=== PATIENT | female | born 1980 | race Caucasian/White ===

== ENCOUNTER 2016-11-06 10:21 | Inpatient (IN) ==
--- NOTE | 2016-11-06 10:27 | Emergency Department Note ---
Disposition Clinical Impression: Suicidal ideation, Schizoaffective disorder, bipolar type, Hallucinations Disposition: Admitted As Inpatient Condition: Fair Referrals: NO,PCP [Primary Care Provider] - Forms: ED Satisfaction Letter Time of Disposition: 12:43 Psych HPI - General Chief Complaint: ED Psychiatric Symptoms Stated Complaint: SI Time Seen by Provider: 11/06/16 10:25 Source: patient Mode of arrival: ambulatory Limitations: no limitations Nursing Notes Reviewed: Yes Vital Signs Reviewed: Yes - History of Present Illness Pt complaint: suicidal ideation If medical clearance, reason: psychiatric condition (bipolar) Onset (ago): day(s) Duration: intermittent History of similar episodes: Yes Associated Psychiatric Symptoms: depression, suicidal ideation, racing thoughts , auditory hallucinations Associated symptoms: Reports: nausea. Denies: confusion, headache - Related Data Home Medications Medication Instructions Recorded Confirmed Buspirone HCl [Buspar] 15 mg PO TID 12/02/15 11/05/16 Duloxetine HCl [Cymbalta] 60 mg PO BID 12/02/15 11/05/16 Gabapentin [Neurontin] 400 mg PO TID 12/02/15 11/05/16 Indapamide [Lozol] 2.5 mg PO QAM 12/02/15 11/05/16 Lipase/Protease/Amylase [Ursula Miller 2 cap PO TIDWM 12/02/15 11/05/16 24,000 Units Capsule] Norgestimate-Ethinyl Estradiol 1 tab PO DAILY 12/02/15 11/05/16 [Sprintec 28 Day Tablet] Omeprazole [PriLOSEC] 40 mg PO BID 12/02/15 11/05/16 SUMAtriptan Succinate [Imitrex] 100 mg PO AD PRN MDD 2 tablets 12/02/15 11/05/16 Tizanidine HCl [Zanaflex] 4 mg PO Q8H PRN 12/02/15 11/05/16 Trazodone HCl 300 mg PO HS 12/02/15 11/05/16 diazePAM [Valium] 10 mg PO BID 12/02/15 11/05/16 Cholecalciferol (Vitamin D3) 10,000 unit PO QWEEK 01/30/16 11/05/16 [Vitamin D3] Dicyclomine [Bentyl] 10 mg PO QID 01/30/16 11/05/16 Lipase/Protease/Amylase [Creon Dr 1 cap PO BID MDD With Snack 01/30/16 11/05/16 24,000 Units Capsule] Quetiapine Fumarate [Seroquel] 200 mg PO HS 01/30/16 11/05/16 Ranitidine HCl [Zantac] 300 mg PO DAILY 01/30/16 11/05/16 lamoTRIgine [Lamictal] 200 mg PO BID 01/30/16 11/05/16 Quetiapine Fumarate [Seroquel] 150 mg PO TID 05/08/16 11/05/16 ARIPiprazole [Abilify] 10 mg PO DAILY 11/05/16 11/05/16 Previous Rx's Medication Instructions Recorded Amitriptyline [Elavil] 25 mg PO HS #30 tablet 02/03/16 Cyclobenzaprine [Flexeril] 10 mg PO TID PRN #14 tablet 06/21/16 Naproxen [Naprosyn] 500 mg PO BID PRN #20 tablet 06/21/16 Ondansetron HCl [Zofran] 4 mg PO Q6HR PRN #20 tablet 06/21/16 Allergies Allergy/AdvReac Type Severity Reaction Status Date / Time metoclopramide [From Reglan] Allergy Seizure Verified 09/17/16 00:35 prochlorperazine Allergy Difficulty Verified 09/17/16 00:35 [From Compazine] Breathing haloperidol AdvReac See Verified 09/17/16 00:35 Comments All systems ED: reviewed and negative except as stated. Review of Systems: As Per HPI Constitutional: Denies: fever, chills Cardiovascular: Denies: chest pain Respiratory: Denies: cough Gastrointestinal: Reports: abdominal pain (Chronic pancreatitis unachanged for weeks), nausea. Denies: vomiting Neurological: Denies: headache Psychiatric: Reports: anxiety, depression, suicidal thoughts, auditory hallucinations Endocrine: Denies: fatigue Past Medical History - Past Medical History Attestation: Yes The following information was validated with the patient. 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: endometriosis - Social History Smoking Status: Current every day smoker Smokeless Tobacco Status: No Alcohol use: Reports: none Drug use: Reports: marijuana Physical Exam Constitutional: atient has tangential speech, vss, rocking back and forth in the room Eyes: PERRLA, sclera anicteric ENT & Mouth: NCAT, normal external ears bilaterally, MMM Neck: normal inspection, neck is supple Resp: CTA bilaterally, no resp distress CV: RRR, no m/g/r GI: distractible tenderness, no guarding or rigidity mild epigstric ttp Back: normal inspection, no tenderness to palpation Neuro: A&O3, CNII-XII grossly intact, [place] Psych: +SI and hallucinations visual denies HI MSK: no gross deformities, normal ROM UE and LE Skin: on limited exam, skin intact with no rashes or lesions Course Course Narrative: Reevaluated after discharge yesterday chronic abdominal pain and hx of negative CTs stable vitals, workup for psych performed yesterday reviewed + amphetamines , +opiates, + bzds and THC , psych 1 a called for eval - Reevaluation(s) Reevaluation #1: Psych cleared, 1 A to accept pink slip signed for admission to Dr Roberts for SI and hallucinations Time: 12:43 Vital Signs Temperature 98.4 F 11/06/16 10:23 Pulse Rate 83 11/06/16 10:23 Respiratory Rate 16 11/06/16 10:23 Blood Pressure 127/36 11/06/16 10:23 O2 Sat by Pulse Oximetry 98 11/06/16 10:23 Temperature 98.4 F 11/06/16 10:30 Pulse Rate 83 11/06/16 10:30 Respiratory Rate 16 11/06/16 10:30 Blood Pressure 127/36 11/06/16 10:30 O2 Sat by Pulse Oximetry 98 11/06/16 10:30 Oxygen Delivery Oxygen Delivery Room Air Psychiatric Medical Clearance - Medical Clearance Checklist Does the patient have a NEW psychiatric condition?: No Any abnormalities indicating possible medical illness?: No Any history of medical issues?: Yes Medical History: No Social History Section defined Any abnormal vital signs prior to transfer?: No Current Vitals: Last Vital Signs Temp 98.4 F 11/06/16 10:30 Pulse 83 11/06/16 10:30 Resp 16 11/06/16 10:30 BP 127/36 11/06/16 10:30 Pulse Ox 98 11/06/16 10:30 Is the patient intoxicated or cognitively impaired?: No Any abnormalities on the physical exam?: Yes Any abnormal labs?: Yes Does the patient require durable medical equiptment?: No Is the patient ambulatory?: Yes Is the patient a fall risk?: No Has the patient been medically cleared?: Yes Any acute medical condition require Tx prior to transfer?: No Statement of Medical Clearance: I have evaluated the patient, reviewed diagnostic information, and certify that the patient's medical condition is sufficiently stable that transfer to the psychiatric unit does not pose a significant risk of deterioration.
[2016-11-06] MEDS ORDERED: *HR* LORazepam 1 MG TABLET PO ONE ×2 (10:47→12:19)
[2016-11-06] MEDS ORDERED: Dicyclomine 20 MG/2 ML AMPUL IM ONE (10:55)
--- NOTE | 2016-11-06 10:56 | Emergency Department Note ---
START Narrative - START START: I examined this patient and my medical decision-making was reviewed with the GROUP UNDERWRITER/PA/Advanced Practice Nurse/Resident Physician. I agree with the documented findings, disposition and treatment plan as described except to the extent set forth below. ED attending note: Patient seen with emergency medicine resident Dr. HIRSCH. Please see a copy of his note for details of the H&P, evaluation, management and disposition of this patient. We independently had [id number] contact with the patient Briefly: A 36-year-old female history polysubstance use smell health disorder and pancreatitis was seen just yesterday evaluated by mental health and discharge home. Patient had issues refusing to go home. Had a be escorted out by security I am told. Patient brought in by ambulance today now with suicidal ideations and the same complaints otherwise exam is otherwise benign. We discussed the case with mental health. They will evaluate the patient in the emergency department. Disposition pending.
[2016-11-06] MEDS ORDERED: Haloperidol Lactate 5 MG/ML VIAL IM PRN (15:03)
[2016-11-06] MEDS ORDERED: Mag Hydrox/Al Hydrox/Simeth 30 ML UDC PO PRN (15:03)
[2016-11-06] MEDS ORDERED: Acetaminophen 325 MG TABLET PO PRN (15:03)
[2016-11-06] MEDS ORDERED: *HR* LORazepam 2 MG/ML VIAL IM PRN (15:03)
[2016-11-06] MEDS ORDERED: traZODone 50 MG TABLET PO PRN (15:03)
[2016-11-06] MEDS ORDERED: *HR* LORazepam 1 MG TABLET PO PRN (15:03)
[2016-11-06] MEDS ORDERED: MOM Conc 10 ML UD.LIQ PO PRN (15:03)
[2016-11-06] MEDS ORDERED: Ondansetron ODT 4 MG TAB.RAPDIS PO PRN (15:08)
[2016-11-06] MEDS ORDERED: traMADol 50 MG TABLET PO PRN (15:08)
[2016-11-06] MEDS ORDERED: SUMAtriptan succinate 50 MG TABLET PO PRN (15:08)
[2016-11-06] MEDS: Gabapentin 400 MG CAPSULE PO SCH ×2 (15:49→20:42)
[2016-11-06] MEDS: Nicotine 7 MG PATCH.TD24 TD SCH (15:51)
[2016-11-06] MEDS: tiZANidine 4 MG TABLET PO PRN (15:56)
[2016-11-06] MEDS: diazePAM 10 MG TABLET PO SCH ×2 (17:14→20:43)
[2016-11-06] MEDS: traZODone 50 MG TABLET PO SCH (20:42)
[2016-11-06] MEDS: lamoTRIgine 100 MG TABLET PO SCH (20:43)
[2016-11-06] MEDS: Famotidine 20 MG TABLET PO SCH (20:43)
[2016-11-07] MEDS: tiZANidine 4 MG TABLET PO PRN ×2 (07:32→16:40)
[2016-11-07] MEDS: lamoTRIgine 100 MG TABLET PO SCH ×2 (08:48→21:37)
[2016-11-07] MEDS: Nicotine 7 MG PATCH.TD24 TD SCH (08:48)
[2016-11-07] MEDS: Gabapentin 400 MG CAPSULE PO SCH (08:48)
[2016-11-07] MEDS: diazePAM 10 MG TABLET PO SCH ×2 (08:49→21:39)
[2016-11-07] MEDS: (Norgestimate-Ethinyl Estradiol [Sprintec 28 Day Tabl) PO SCH (08:49)
--- NOTE | 2016-11-07 13:27 | Psychiatry History & Physical ---
Date of Encounter: 11/07/16 Time of Encounter: 13:07 History of Present Illness Patient Stated Chief Complaint: depression and suicidal ideations Medicare Admission Attestation: For traditional Medicare patients the provided hospital inpatient services are reasonable and necessary and in the case of services not specified as inpatient -only under 42 CFR 419.22 (n), that they are appropriately provided as inpatient services in accordance 42 CFR 412.3. For Critical Access Hospital the patient may reasonably be expected to be discharged or transferred to a hospital within 96 hours after admission to the Critical Access Hospital. Admitted From: Emergency Dept Plans for Post Hospital Care: Home History of Present Illness: Ms. Calle is a 36 year old female who was referred for hospitalization from emergency department where she presented with depression and suicidal ideation with thoughts of wanting to end her life. She reported she has been struggling from depression for a long time. She is noted to have diagnoses of schizoaffective disorder. Patient reported that most recently she has been struggling with a lot of challenges in life which is contributing to her relapse of depression.. Her stressors included recent loss of her grandfather whom she was closed and attached to. She reported that she is having ongoing issues and conflicts with her father which is also contributing to her depression. Patient also has chronic pancreatitis and pain related issues which further exacerbates her depression. Patient was endorsing low mood and anhedonia hopeless helpless feelings crying and weeping spells low energy levels and recurrent suicidal thoughts and ideations. She is currently denying any psychotic or manic symptoms. Since patient was actively suicidal and was not able to contract for safety and was posing a threat to herself it was decided to hospitalize her at the [facility] health services for safety concerns. Patient's urine drug screen is positive for benzodiazepines opioids marijuana and amphetamine. Patient is adamantly denying any use of amphetamine however she did endorse of taking a Percocet prior to coming to the emergency department and smoking marijuana regularly. Benzodiazepines are prescribed by her outpatient psychiatrist Past Med Surg Social Fam HX - Past Medical History Medical history: arthritis, GERD, kidney stones, migraine, seizures, other - Past Psychiatric History Psychiatric history: Reports: previous psychiatric hospitalization Past psychiatric history details: Multiple psych hospitalizations Last at [facility] in Feb 2016 Receiving outpatient Rx from Dr Bill Rodriguez Family psychiatric history: No Family History of Suicide: None - Past Surgical History Surgical History: cholecystectomy, other - Social History Smoking Status: Current every day smoker Smokeless Tobacco Status: No Alcohol use: none Drug use: marijuana Occupational status: disabled Current living situation: Home, With Family Activity Level: Independent ambulation Recent Out of Country Travel Within the Last 8 Weeks: No Exposure or Possible Exposure to Illness During Travel: No Additional social history: Signle No children On SSDI Resides with a friend No legal issues - Family History Mother Adopted: [place]: Alyssa Calle Family Member Ethnicity: Non- Living Status: Age at : 52 Cause of : Aspiration of emesis Hx Family Cardiac Disorders: No Hx Family Respiratory Disorders: No Hx Family Cancer: Yes (Breast) Hx Family GI Disorders: No Hx Family Genitourinary Disorders: No Hx Family Endocrine Disorder: No Hx Family Musculoskeletal Disorders: Yes (2 displaced cervical vertebrae) Hx Family Neuromuscular Disorders: No Hx Family Neurologic Disorders: No Hx Family HEENT Disorders: No Hx Family Autoimmune Disorders: No Hx Family Reproductive Disorders: Yes (Endometriosis) Hx Family Psychosocial Disorders: Yes (Bipolar disorder) Hx Family Medical Disorders: No Medications & Allergies Buspirone HCl [Buspar] 30 mg PO TID 12/02/15 [History] Duloxetine HCl [Cymbalta] 60 mg PO BID 12/02/15 [History] Gabapentin [Neurontin] 400 mg PO TID 12/02/15 [History] Lipase/Protease/Amylase [Creon Dr 24,000 Units Capsule] 2 cap PO TIDWM 12/02/15 [History] Norgestimate-Ethinyl Estradiol [Sprintec 28 Day Tablet] 1 tab PO DAILY 12/02/15 [History] SUMAtriptan Succinate [Imitrex] 100 mg PO AD PRN MDD 2 tablets 12/02/15 [History ] Tizanidine HCl [Zanaflex] 4 mg PO Q8H PRN 12/02/15 [History] Trazodone HCl 300 mg PO HS 12/02/15 [History] diazePAM [Valium] 10 mg PO BID 12/02/15 [History] Dicyclomine [Bentyl] 10 mg PO QID 01/30/16 [History] Quetiapine Fumarate [Seroquel] 200 mg PO HS 01/30/16 [History] lamoTRIgine [Lamictal] 200 mg PO BID 01/30/16 [History] Quetiapine Fumarate [Seroquel] 100 mg PO QAM 05/08/16 [History] Ondansetron HCl [Zofran] 4 mg PO Q6HR PRN #20 tablet 06/21/16 [Rx] Amitriptyline [Elavil] 10 mg PO HS 11/06/16 [History] Quetiapine Fumarate [SEROquel] 100 mg PO BID 11/06/16 [History] Ranitidine HCl [Heartburn Relief] 150 mg PO HS 11/06/16 [History] Tramadol HCl [Ultram] 50 mg PO TID PRN 11/06/16 [History] Allergies metoclopramide [From Reglan] Allergy (Verified 09/17/16 00:35) Seizure prochlorperazine [From Compazine] Allergy (Verified 09/17/16 00:35) Difficulty Breathing haloperidol Adverse Reaction (Verified 09/17/16 00:35) See Comments Review of Systems Psychiatric: Reports: depression, suicidal ideation, hopelessness Mental Status Exam Patient orientation: Yes Person, Yes Time, Yes Place Level of alertness: Alert Patient appearance: Unkempt, Disheveled Behavior: anxious, tearful Psychomotor activity: Slowed Eye contact: Maintains Eye Contact Mood description: Anxious, Irritable Affect description: tearful, dysphoric, anxious Speech pattern: Normal rate Speech volume: Soft/Quiet Thought process: Linear, Goal Oriented Thought content: Yes Suicidal ideation Perceptual disturbances: No Auditory hallucinations, No Visual hallucinations Attention span: Capable of Focused Attention Memory description: Grossly Intact Patient reliability: Reliable Historian Intelligence estimate: Average Judgment: Limited Insight: Minimal Exam - HEENT Head exam IM: Present: atraumatic Eye exam IM: Present: normal appearance ENT exam IM: Present: normal exam - Neurological Neurological exam IM: Present: alert, CN II-XII intact, normal gait, oriented X3. Absent: motor sensory deficit, reflexes normal, no focal deficits - Respiratory Respiratory exam IM: Absent: respiratory distress - GI/Abdominal GI/Abdominal exam IM: Present: soft. Absent: tenderness - Extremities Extremities exam IM: Present: full ROM - Skin Skin exam IM: Present: normal color Results - Vital Signs Vital signs: Temp Pulse Resp BP Pulse Ox 96.7 F L 67 16 92/64 98 11/07/16 08:30 11/07/16 08:30 11/07/16 08:30 11/07/16 08:30 11/06/16 10:30 Assessment and Plan (1) Schizoaffective disorder, bipolar type Current visit: Yes Status: Acute Plan: Admit inpatient for safety and stabilization, Close observation, Suicide Precautions per unit protocol, Encourage participation in unit milieu, Group Therapy, Monitor sleep, Monitor appetite Additional Plan: Will increase Neurontin and will continue with her current regimen of meds Risks, benefits, side effects, alternatives discussed w/pt: Yes Patient agreeable to treatment: Yes Plans for Post Hospital Care: Home Estimated Length of Stay (Days): 4 (2) Substance abuse Current visit: No Status: Acute Plan: Admit inpatient for safety and stabilization, Close observation, Suicide Precautions per unit protocol, Encourage participation in unit milieu, Group Therapy, Monitor sleep, Monitor appetite Risks, benefits, side effects, alternatives discussed w/pt: Yes Plans for Post Hospital Care: Home Estimated Length of Stay (Days): 4
[2016-11-07] MEDS: Gabapentin 300 MG CAPSULE PO SCH ×2 (14:50→21:38)
[2016-11-07] MEDS: Famotidine 20 MG TABLET PO SCH (21:38)
[2016-11-07] MEDS: traZODone 50 MG TABLET PO SCH (21:39)
[2016-11-08] MEDS: (Norgestimate-Ethinyl Estradiol [Sprintec 28 Day Tabl) PO SCH (08:41)
[2016-11-08] MEDS: lamoTRIgine 100 MG TABLET PO SCH ×2 (08:45→21:36)
[2016-11-08] MEDS: Gabapentin 300 MG CAPSULE PO SCH ×3 (08:46→21:36)
[2016-11-08] MEDS: Nicotine 7 MG PATCH.TD24 TD SCH (08:46)
[2016-11-08] MEDS: diazePAM 10 MG TABLET PO SCH ×2 (08:46→21:37)
[2016-11-08] MEDS: tiZANidine 4 MG TABLET PO PRN ×2 (09:35→17:36)
--- NOTE | 2016-11-08 14:20 | Psychiatry Progress Note ---
Date of Encounter: 11/08/16 Time of Encounter: 01:55 Subjective Interval history: Patient seen and interviewed. Patient had a rough evening yesterday when she got extremely agitated and irritable and suicidal. Patient asked for a safety scissors from the staff and ran with that and threatened to stab herself she was stopped by the staff. She settled down after getting when necessary medications. Upon interview today she appeared a lot more controlled. She is still endorsing some suicidal thoughts and hopeless feelings but able to contract for safety on the unit. I encouraged the patient to attend groups and participate in activities. I also discussed some safety strategies with the patient and encouraged her to start working on a safety plan as well Review of Systems Psychiatric: Reports: depression, suicidal ideation, hopelessness Objective: Exam Patient orientation: Yes Person, Yes Time, Yes Place Level of alertness: Alert Patient appearance: Appropriate Behavior: anxious, guarded, withdrawn Psychomotor activity: Slowed Eye contact: Maintains Eye Contact Mood description: Depressed, Anxious Affect description: congruent with mood Speech pattern: Normal rate, Normal rhythm, Normal tone Speech volume: Soft/Quiet Thought process: Linear, Goal Oriented Thought content: Yes Suicidal ideation, No Homicidal ideation, No Overt delusions Perceptual disturbances: No Auditory hallucinations, No Visual hallucinations Judgment: Limited Insight: Minimal Results - Vital Signs Vital Signs: Temp Pulse Resp BP Pulse Ox 98 F 80 16 117/77 98 11/08/16 09:00 11/08/16 09:00 11/08/16 09:00 11/08/16 09:00 11/06/16 10:30 Assessment and Plan (1) Schizoaffective disorder, bipolar type Current visit: Yes Status: Acute Plan: Continue hospitalization, Close observation, Suicide Precautions per unit protocol, Encourage participation in unit milieu, Group Therapy, Monitor sleep, Monitor appetite Risks, benefits, side effects, alternatives discussed w/pt: Yes Patient agreeable to treatment: Yes (2) Substance abuse Current visit: No Status: Acute Plan: Continue hospitalization, Close observation, Suicide Precautions per unit protocol, Encourage participation in unit milieu, Group Therapy, Monitor sleep, Monitor appetite Risks, benefits, side effects, alternatives discussed w/pt: Yes Consult Discharge Plan - Plan Referrals: NO,PCP [Primary Care Provider] -
[2016-11-08] MEDS: hydrOXYzine pamoate 25 MG CAPSULE PO PRN (18:18)
[2016-11-08] MEDS: traZODone 50 MG TABLET PO SCH (21:36)
[2016-11-08] MEDS: Famotidine 20 MG TABLET PO SCH (21:36)
[2016-11-09] MEDS: (Norgestimate-Ethinyl Estradiol [Sprintec 28 Day Tabl) PO SCH (08:25)
[2016-11-09] MEDS: Nicotine 7 MG PATCH.TD24 TD SCH (08:30)
[2016-11-09] MEDS: Gabapentin 300 MG CAPSULE PO SCH ×3 (08:30→21:32)
[2016-11-09] MEDS: lamoTRIgine 100 MG TABLET PO SCH ×2 (08:30→21:33)
[2016-11-09] MEDS: diazePAM 10 MG TABLET PO SCH ×2 (08:31→21:34)
[2016-11-09] MEDS: hydrOXYzine pamoate 25 MG CAPSULE PO PRN ×2 (11:28→20:06)
[2016-11-09] MEDS: tiZANidine 4 MG TABLET PO PRN ×2 (11:28→20:05)
--- NOTE | 2016-11-09 14:44 | Psychiatry Progress Note ---
Date of Encounter: 11/09/16 Time of Encounter: 14:30 Subjective Interval history: pt seen today , case discussed with team, chart reviewed. she is still depressed, agreed to having bad thoughts like harming herself and thinks about slitting her wrist but i also think about my family, she tried to attempt hurting self yesterday. she is extremely depressed, poor eye contact and mostly in bed and sleeping mostly, has paranoia , denies auditory/visual hallucinations. denies using amphetamines , has used marijuana . has multiple stressors and loss.she has h/o being in treatment since 17 yrs old. she has h/o cutting self in past and has been on and off in treatment. she has h/o non compliance. Review of Systems Psychiatric: Reports: depression, suicidal ideation, hopelessness Objective: Exam Patient orientation: Yes Time, Yes Place Level of alertness: Alert Patient appearance: Unkempt Behavior: cooperative, anxious Psychomotor activity: Slowed Eye contact: Minimal Contact Mood description: Depressed Affect description: congruent with mood, dysphoric Speech pattern: Slowed Speech volume: Soft/Quiet Thought process: Slowed Thinking Thought content: Yes Suicidal ideation, Yes Paranoid delusion Judgment: Poor Insight: Partial Results - Vital Signs Vital Signs: Temp Pulse Resp BP Pulse Ox 98.3 F 76 16 122/92 98 11/09/16 08:51 11/09/16 08:51 11/09/16 08:51 11/09/16 08:51 11/06/16 10:30 Assessment and Plan (1) Depressed bipolar disorder Current visit: Yes Status: Acute Plan: Continue hospitalization Risks, benefits, side effects, alternatives discussed w/pt: Yes Patient agreeable to treatment: Yes Consult Discharge Plan - Plan Referrals: Jerry Fitzpatrick [facility] [Outside] - 12/18/16 12:30 pm (The above appointment is with Nereyda Rebollar for outpatient psychiatric assessment and medication management services.) [facility] Zarate [Outside] (The above appointment is with When you come to your first appointment, you will have an orientation to the agency and you will meet with a counselor. Please bring the following with you to your first visit to the clinic: 1) proof of household income (two consecutive pay stubs, social security award letter, bank statement, statement letter from [facility] , child support statement, IRS 1040 or W2 form, or a statement from the person who financially supports you stating they help provide for your basic needs), 2 ) proof of residency (drivers license, a piece of mail showing your address, a statement from person you live with verifying you live at their address), 3) your social security card, 4) photo ID, 5) your insurance card (if you have commercial insurance you must call to obtain a prior authorization number before you arrive to your first appointment) and 6) if you do not have insurance but have applied for Medicaid, please bring verification you have applied. This is the first available appointment. You may contact the office regularly to check for cancellations that may allow you to be seen sooner. )
[2016-11-09] MEDS: traZODone 50 MG TABLET PO SCH (21:31)
[2016-11-09] MEDS: Famotidine 20 MG TABLET PO SCH (21:32)
[2016-11-10] MEDS: Nicotine 7 MG PATCH.TD24 TD SCH (09:16)
[2016-11-10] MEDS: Gabapentin 300 MG CAPSULE PO SCH ×3 (09:17→20:40)
[2016-11-10] MEDS: lamoTRIgine 100 MG TABLET PO SCH ×2 (09:18→20:40)
[2016-11-10] MEDS: diazePAM 10 MG TABLET PO SCH ×2 (09:18→20:40)
[2016-11-10] MEDS: (Norgestimate-Ethinyl Estradiol [Sprintec 28 Day Tabl) PO SCH (09:21)
--- NOTE | 2016-11-10 10:55 | Psychiatry Progress Note ---
Date of Encounter: 11/10/16 Time of Encounter: 10:45 Subjective Interval history: Patient seen today , case discussed with team , as per her she feels little better , lesser thoughts of hurting self and concerned that her father and sister do not understand Bipolar, my mother was Bipolar and her father was BIpolar also. she was given prn meds yesterday for increase anxiety and restlessness , sleep is improving, appetite is better also. at present agreed needs treatment until free of suicidal thoughts . patient still hopeless and has guilt , and trouble concenterating. Review of Systems Psychiatric: Reports: depression, suicidal ideation, hopelessness Objective: Exam Level of alertness: Alert Patient appearance: Appropriate Behavior: cooperative, anxious Psychomotor activity: Normal Eye contact: Maintains Eye Contact Mood description: Depressed, Anxious Affect description: congruent with mood Speech pattern: Normal rate Speech volume: Normal Thought process: Intact Thought content: Yes Suicidal ideation Judgment: Limited Insight: Partial Results - Vital Signs Vital Signs: Temp Pulse Resp BP Pulse Ox 97.4 F L 72 14 109/83 98 11/10/16 09:00 11/10/16 09:00 11/10/16 09:00 11/10/16 09:00 11/06/16 10:30 Assessment and Plan (1) Depressed bipolar disorder Current visit: Yes Status: Acute Risks, benefits, side effects, alternatives discussed w/pt: Yes Patient agreeable to treatment: Yes Consult Discharge Plan - Plan Referrals: Chago Jean [facility] [Outside] - 11/16/16 11:00 am (The above appointment is with Mik[facility] Jaramillo [facility]/18/16 12:30 pm (The above appointment is with Nereyda Rebollar for outpatient psychiatric assessment and medication management services.)
[2016-11-10] MEDS: tiZANidine 4 MG TABLET PO PRN (13:15)
[2016-11-10] MEDS: hydrOXYzine pamoate 25 MG CAPSULE PO PRN (13:15)
[2016-11-10] MEDS: Famotidine 20 MG TABLET PO SCH (20:39)
[2016-11-10] MEDS: traZODone 50 MG TABLET PO SCH (20:42)
[2016-11-11] MEDS: tiZANidine 4 MG TABLET PO PRN ×3 (04:07→20:34)
[2016-11-11] MEDS: lamoTRIgine 100 MG TABLET PO SCH ×2 (08:42→20:37)
[2016-11-11] MEDS: Gabapentin 300 MG CAPSULE PO SCH ×3 (08:43→20:34)
[2016-11-11] MEDS: Nicotine 7 MG PATCH.TD24 TD SCH (08:43)
[2016-11-11] MEDS: diazePAM 10 MG TABLET PO SCH ×2 (08:43→20:39)
[2016-11-11] MEDS: (Norgestimate-Ethinyl Estradiol [Sprintec 28 Day Tabl) PO SCH (08:49)
--- NOTE | 2016-11-11 10:31 | Psychiatry Progress Note ---
Date of Encounter: 11/11/16 Time of Encounter: 10:27 Subjective Interval history: 36 yr old Wf seen today , case d/w team and chart reviewed. states i think i am getting ok, but i woke up anxious and woke up at 4:30 . i am not having suicidal thoughts today but i am really anxious this morning. pt was non compliant with her medications and therefore relapsed and used streed drugs. she denies psychosis , but still guilt/anxious and hopeless. Review of Systems Psychiatric: Reports: depression, anxiety, anhedonia, hopelessness Objective: Exam Patient orientation: Yes Time, Yes Place Level of alertness: Alert Patient appearance: Appropriate Behavior: nervous, anxious Psychomotor activity: Slowed Eye contact: Minimal Contact Mood description: Depressed, Anxious Affect description: congruent with mood Speech pattern: Normal rate Speech volume: Normal Thought process: Circumstantial Thought content: Yes Preoccupation, Yes Guilt Judgment: Limited Insight: Partial Results - Vital Signs Vital Signs: Temp Pulse Resp BP Pulse Ox 96.9 F L 64 16 121/72 98 11/11/16 09:00 11/11/16 09:00 11/11/16 09:00 11/11/16 09:00 11/06/16 10:30 Assessment and Plan (1) Depressed bipolar disorder Current visit: Yes Status: Acute Risks, benefits, side effects, alternatives discussed w/pt: Yes Patient agreeable to treatment: Yes (2) Cannabis abuse Current visit: Yes Status: Chronic Plan: Close observation, Encourage participation in unit milieu Risks, benefits, side effects, alternatives discussed w/pt: Yes Patient agreeable to treatment: Yes Consult Discharge Plan - Plan [facility]16/16 11:00 am (The above appointment is with Mikala Jaramillo for mental health counseling services.) [facility] [Outside] - 12/18/16 12:30 pm (The above appointment is with Nereyda Rebollar for outpatient psychiatric assessment and medication management services.)
[2016-11-11] MEDS: Famotidine 20 MG TABLET PO SCH (20:35)
[2016-11-11] MEDS: traZODone 50 MG TABLET PO SCH (20:37)
[2016-11-12] MEDS: Nicotine 7 MG PATCH.TD24 TD SCH (08:34)
[2016-11-12] MEDS: tiZANidine 4 MG TABLET PO PRN ×2 (08:35→17:32)
[2016-11-12] MEDS: lamoTRIgine 100 MG TABLET PO SCH ×2 (08:35→20:41)
[2016-11-12] MEDS: Gabapentin 300 MG CAPSULE PO SCH ×3 (08:35→20:42)
[2016-11-12] MEDS: diazePAM 10 MG TABLET PO SCH ×2 (08:35→20:41)
[2016-11-12] MEDS: (Norgestimate-Ethinyl Estradiol [Sprintec 28 Day Tabl) PO SCH (08:42)
--- NOTE | 2016-11-12 11:28 | Psychiatry Progress Note ---
Date of Encounter: 11/12/16 Time of Encounter: 11:20 Subjective Interval history: Patient seen today , case discussed with team and as per team patient is showing continued improvement. i am doing better , i talked to my Dad yesterday and it went well. she still has circumstantial thought process, anxious , i am not as depressed and i am not going to harm myself. denies side effects. her medications remain same as responding well. Review of Systems Psychiatric: Reports: depression, anxiety, difficulty concentrating, hopelessness Objective: Exam Patient orientation: Yes Time, Yes Place Level of alertness: Alert Patient appearance: Appropriate Behavior: anxious Psychomotor activity: Normal Eye contact: Maintains Eye Contact Mood description: Anxious Affect description: congruent with mood Speech pattern: Normal rate Speech volume: Normal Thought process: Circumstantial Thought content: Yes Intact Judgment: Fair Insight: Partial Results - Vital Signs Vital Signs: Temp Pulse Resp BP Pulse Ox 98.2 F 80 16 107/77 98 11/12/16 08:45 11/12/16 08:45 11/12/16 08:45 11/12/16 08:45 11/06/16 10:30 Assessment and Plan (1) Depressed bipolar disorder Current visit: Yes Status: Acute Risks, benefits, side effects, alternatives discussed w/pt: Yes Patient agreeable to treatment: Yes (2) Cannabis abuse Current visit: Yes Status: Chronic Risks, benefits, side effects, alternatives discussed w/pt: Yes Patient agreeable to treatment: Yes Consult Discharge Plan - Plan Referrals: [facility] [Outside] - 11/16/16 11:00 am (The above appointment is with Mikala Jaramillo for mental health counseling services.) [facility] [Outside] - 12/18/16 12:30 pm (The above appointment is with Nereyda Rebollar for outpatient psychiatric assessment and medication management services.)
[2016-11-12] MEDS: hydrOXYzine pamoate 25 MG CAPSULE PO PRN (17:32)
[2016-11-12] MEDS: Famotidine 20 MG TABLET PO SCH (20:42)
[2016-11-12] MEDS: traZODone 50 MG TABLET PO SCH (20:43)
[2016-11-13 08:06] VITALS: BP 112/71
[2016-11-13] MEDS: Nicotine 7 MG PATCH.TD24 TD SCH (08:38)
[2016-11-13] MEDS: tiZANidine 4 MG TABLET PO PRN (08:38)
[2016-11-13] MEDS: Gabapentin 300 MG CAPSULE PO SCH (08:39)
[2016-11-13] MEDS: lamoTRIgine 100 MG TABLET PO SCH (08:40)
[2016-11-13] MEDS: diazePAM 10 MG TABLET PO SCH (08:40)
[2016-11-13] MEDS: (Norgestimate-Ethinyl Estradiol [Sprintec 28 Day Tabl) PO SCH (09:24)
--- NOTE | 2016-11-13 10:32 | Discharge Summary ---
Date of Encounter: 11/13/16 Time of Encounter: 10:30 Diagnosis - Discharge Diagnosis (1) Depressed bipolar disorder Status: Acute (2) Cannabis abuse Priority: Secondary Status: Chronic Medications - Discharge Medications Prescriptions: Buspirone HCl [Buspar] 30 mg PO TID #90 diazePAM [Valium] 10 mg PO BID #60 Duloxetine HCl [Cymbalta] 60 mg PO BID #60 Gabapentin [Neurontin] 600 mg PO TID #90 lamoTRIgine [Lamictal] 200 mg PO BID #60 Quetiapine Fumarate [Seroquel] 100 mg PO 0900,1300,1700 #90 tab Quetiapine Fumarate [Seroquel] 200 mg PO HS #30 Trazodone HCl 300 mg PO HS #60 Buspirone HCl [Buspar] 30 mg PO TID 12/02/15 [History] Duloxetine HCl [Cymbalta] 60 mg PO BID 12/02/15 [History] Gabapentin [Neurontin] 400 mg PO TID 12/02/15 [History] Lipase/Protease/Amylase [Creon Dr 24,000 Units Capsule] 2 cap PO TIDWM 12/02/15 [History] Norgestimate-Ethinyl Estradiol [Sprintec 28 Day Tablet] 1 tab PO DAILY 12/02/15 [History] SUMAtriptan Succinate [Imitrex] 100 mg PO AD PRN MDD 2 tablets 12/02/15 [History ] Tizanidine HCl [Zanaflex] 4 mg PO Q8H PRN 12/02/15 [History] diazePAM [Valium] 10 mg PO BID 12/02/15 [History] Dicyclomine [Bentyl] 10 mg PO QID 01/30/16 [History] lamoTRIgine [Lamictal] 200 mg PO BID 01/30/16 [History] Quetiapine Fumarate [Seroquel] 100 mg PO QAM 05/08/16 [History] Ondansetron HCl [Zofran] 4 mg PO Q6HR PRN #20 tablet 06/21/16 [Rx] Amitriptyline [Elavil] 10 mg PO HS 11/06/16 [History] Quetiapine Fumarate [SEROquel] 100 mg PO BID 11/06/16 [History] Ranitidine HCl [Heartburn Relief] 150 mg PO HS 11/06/16 [History] Tramadol HCl [Ultram] 50 mg PO TID PRN 11/06/16 [History] Buspirone HCl [Buspar] 30 mg PO TID #90 11/13/16 [Rx] Duloxetine HCl [Cymbalta] 60 mg PO BID #60 11/13/16 [Rx] Gabapentin [Neurontin] 600 mg PO TID #90 11/13/16 [Rx] Quetiapine Fumarate [Seroquel] 100 mg PO 0900,1300,1700 #90 tab 11/13/16 [Rx] Quetiapine Fumarate [Seroquel] 200 mg PO HS #30 11/13/16 [Rx] Trazodone HCl 300 mg PO HS #60 11/13/16 [Rx] diazePAM [Valium] 10 mg PO BID #60 11/13/16 [Rx] lamoTRIgine [Lamictal] 200 mg PO BID #60 11/13/16 [Rx] Allergies metoclopramide [From Reglan] Allergy (Verified 09/17/16 00:35) Seizure prochlorperazine [From Compazine] Allergy (Verified 09/17/16 00:35) Difficulty Breathing haloperidol Adverse Reaction (Verified 09/17/16 00:35) See Comments Provider Date of admission: 11/06/16 12:41 Primary care physician: PCP NO Assessment and Plan - Follow up Plan Follow up with: [facility] [Outside] - 11/16/16 11:00 am (The above appointment is with Mikala Jaramillo for mental health counseling services.) [facility] [Outside] - 12/18/16 12:30 pm (The above appointment is with Nereyda Rebollar for outpatient psychiatric assessment and medication management services.) Overall status at discharge: Stable Disposition: Home, Self-Care Hospital Course Hospital course: Ms. Calle is a 36 year old female , admitted with depression and suicidal ideations and substance use. she has multiple stressors and losses , her friend with whom she lives had stroke, grand father passed. she had missed taking her meds for 2 days. she has shown improvement since inpatient, has been compliant with meds and unit milieu , she denies depressive symptoms and signs, feeling good and has short and prison goals. she is not suicidal, no psychosis, concentration and focus is better. she has worked out her relationship with her father while inpatient as that was one of her big stress. she has follow up with PCP and HER Out patient Psychiatrist . SHE HAS GAINED INSIGHT IN HER SUBSTANCE USE , planning to remain sober. At present she is not danger to self/others. Time spent discussing smoking cessation with patient: 3 to 10 minutes Does patient wish to continue nicotine replacement upon disc: No (PATIENT STATES SHE IS GOING TO TRY .) - Time Spent with Patient Total time spent providing and/or coordinating discharge services: Less than 30 minutes Quality - Multiple Antipsychotics Patient discharged on 2 or more antipsychotic medications: No Procedures - Procedures Procedures: Medication Management, Crisis Stabilization, Supportive Therapy, Group Therapy, Psychoeducational Therapy Mental Status Exam - Mental Status Exam Patient orientation: Yes Time, Yes Place Level of alertness: Alert Patient appearance: Well Groomed Behavior: cooperative Psychomotor activity: Normal Eye contact: Maintains Eye Contact Mood description: Euthymic/stable Affect description: congruent with mood Speech pattern: Normal rate Speech Volume: Normal Thought process: Logical Thought Content: Yes Intact Judgment: Good Insight: Full
== END 2016-11-13 14:20 | disposition home or self-care (01) | DRG 885 ==
LOC: EMEROO 10:21 → 1ANU 12:41 → SUATTDRO 12:41 → 1ANU 12:52
PROVIDERS: ADMIT Psychiatry & Neurology Psychiatry; ATTEND Psychiatry & Neurology Psychiatry

== ENCOUNTER 2017-01-06 15:58 | Inpatient (IN) ==
[2017-01-06] MEDS ORDERED: Ondansetron 4 MG/2 ML VIAL IVP ONE ×3 (16:00→18:44)
[2017-01-06] MEDS ORDERED: Ketorolac 30 MG/ML VIAL IVP ONE (16:00)
[2017-01-06] MEDS ORDERED: 0.9 % Sodium Chloride 1,000 ML IVC ONE (16:00)
[2017-01-06] MEDS ORDERED: MetroNIDAZOLE 500 MG/100 ML 500 MG/100 ML BAG IVPB ONE (16:03)
[2017-01-06] MEDS ORDERED: *HR* FentaNYL (PF) 100 MCG/2 ML VIAL IVP ONE ×2 (16:04→18:44)
[2017-01-06 16:28] LABS: Amphetamine Screen,Urine Positive ng/mL (Cutoff=1000); Barbiturate Screen,Urine Negative ng/mL (Cutoff=200); Benzodiazepines Screen,Urine Positive ng/mL (Cutoff=200); Cannabinoid Screen,Urine Positive ng/mL (Cutoff = 50); Cocaine Screen,Urine Negative ng/mL (Cutoff= 300); Opiate Screen,Urine Negative ng/mL (Cutoff=300); Phencyclidine Screen,Urine Negative ng/mL (Cutoff=25)
[2017-01-06 16:33] LABS: Basophils # 0.1 K/mcL (0.0-0.2); Basophils % 0.4 %; Hematocrit 41.2 % (35.3-44.9); Hemoglobin 13.4 g/dL (11.5-15.4); Immature Granulocytes % 0.1 % (0-4); Immature Platelets 2.1 % (1.1-6.1); Lymphocytes # 1.3 K/mcL (0.6-4.6); Lymphocytes % 9.8 %; Mean Corpuscular HGB Conc 32.5 g/dL (31.6-35.5); Mean Corpuscular Hemoglobin 28.8 pg (28.0-33.3); Mean Corpuscular Volume 88.6 fL (83.0-100.0); Mean Platelet Volume 9.4 fL (9.4-12.4); Monocytes # 0.4 K/mcL (0.0-1.3); Monocytes % 3.1 %; Neutrophils # 11.9 K/mcL (1.6-8.9); Platelet Count 421 K/mcL (140-400); Red Blood Count 4.65 M/mcL (3.82-4.97); Red Cell Distribution Width 13.7 % (11.5-14.5); Segmented Neutrophils % 86.6 %
--- NOTE | 2017-01-06 16:35 | Emergency Department Note ---
Disposition Clinical Impression: Colitis Disposition: Admitted As Inpatient Condition: Good Referrals: Alka Castanon DO [Primary Care Provider] - Forms: ED Satisfaction Letter, Work/School Release Time of Disposition: 18:41 Abdominal Pain HPI - General Chief Complaint: ED Abdominal Pain Stated Complaint: nausea/vomiting/abdominal pain Time Seen by Provider: 01/06/17 16:00 Source: patient, EMS Mode of arrival: EMS Limitations: no limitations Nursing Notes Reviewed: Yes Vital Signs Reviewed: Yes - History of Present Illness HPI Narrative: 36 year old female with multiple drug abuses states that she has colitis last month. She presents to the ED with complaints of nausea nd vomitting and diarrhe for the past 24 hours and inability to tolerate PO. She states that she has lower abdominal pain with so much vomitting that now she has throat pain and spots of blood in it as well. She states that it hurts to urinate on top of it. Patient states that she also has crhonic pancreatitis and that she has no primary care folloowup. She was able to tolerate PO last month during her colitis but states that this feels worse and diffrrent. She also states that her diarrhea and vomit have been watery and not green. no blood in the diarrhea. Patient states that she has had her galbladder removed. Pain Scale: 9 - Related Data Home Medications Medication Instructions Recorded Confirmed Buspirone HCl [Buspar] 30 mg PO TID 12/02/15 11/06/16 Duloxetine HCl [Cymbalta] 60 mg PO BID 12/02/15 11/06/16 Gabapentin [Neurontin] 400 mg PO TID 12/02/15 11/06/16 Lipase/Protease/Amylase [Urs[place] Dr 2 cap PO TIDWM 12/02/15 11/06/16 24,000 Units Capsule] Norgestimate-Ethinyl Estradiol 1 tab PO DAILY 12/02/15 11/06/16 [Sprintec 28 Day Tablet] SUMAtriptan Succinate [Imitrex] 100 mg PO AD PRN MDD 2 tablets 12/02/15 11/06/16 Tizanidine HCl [Zanaflex] 4 mg PO Q8H PRN 12/02/15 11/06/16 diazePAM [Valium] 10 mg PO BID 12/02/15 11/06/16 Dicyclomine [Bentyl] 10 mg PO QID 01/30/16 11/06/16 lamoTRIgine [Lamictal] 200 mg PO BID 01/30/16 11/06/16 Quetiapine Fumarate [Seroquel] 100 mg PO QAM 05/08/16 11/06/16 Amitriptyline [Elavil] 10 mg PO HS 11/06/16 11/06/16 Quetiapine Fumarate [SEROquel] 100 mg PO BID 11/06/16 11/06/16 Ranitidine HCl [Heartburn Relief] 150 mg PO HS 11/06/16 11/06/16 Tramadol HCl [Ultram] 50 mg PO TID PRN 11/06/16 11/06/16 Previous Rx's Medication Instructions Recorded Ondansetron HCl [Zofran] 4 mg PO Q6HR PRN #20 tablet 06/21/16 Buspirone HCl [Buspar] 30 mg PO TID #90 11/13/16 Duloxetine HCl [Cymbalta] 60 mg PO BID #60 11/13/16 Gabapentin [Neurontin] 600 mg PO TID #90 11/13/16 Quetiapine Fumarate [Seroquel] 100 mg PO 0900,1300,1700 #90 tab 11/13/16 Quetiapine Fumarate [Seroquel] 200 mg PO HS #30 11/13/16 Trazodone HCl 300 mg PO HS #60 11/13/16 diazePAM [Valium] 10 mg PO BID #60 11/13/16 lamoTRIgine [Lamictal] 200 mg PO BID #60 11/13/16 Ciprofloxacin HCl [Cipro] 500 mg PO BID #14 tablet 12/13/16 Dicyclomine [Bentyl] 10 mg PO QID PRN #20 capsule 12/13/16 Ondansetron ODT [Zofran ODT] 4 mg SL Q6HR PRN #15 tab.rapdis 12/13/16 metroNIDAZOLE [Flagyl] 500 mg PO TID #21 tablet 12/13/16 Allergies Allergy/AdvReac Type Severity Reaction Status Date / Time metoclopramide [From Reglan] Allergy Seizure Verified 09/17/16 00:35 prochlorperazine Allergy Difficulty Verified 09/17/16 00:35 [From Compazine] Breathing haloperidol AdvReac See Verified 09/17/16 00:35 Comments Constitutional: Denies: fever, chills, weakness, weight change Eyes: Denies: eye pain, eye discharge, vision change ENT ED: Denies: ear pain, throat pain, dental pain, hearing loss, epistaxis, congestion, dysphagia Cardiovascular: Denies: chest pain, palpitations, dyspnea on exertion, edema, syncope Respiratory: Denies: cough, dyspnea, wheezes, hemoptysis, stridor Gastrointestinal: Reports: abdominal pain, nausea, vomiting, diarrhea. Denies: constipation, hematemesis, melena, hematochezia Genitourinary: Denies: dysuria, frequency, hematuria, discharge Musculoskeletal: Denies: back pain, neck pain, arthralgia, myalgia Integumentary: Denies: rash, abrasion, lesions Neurological: Denies: headache, weakness, numbness, paresthesias, confusion, abnormal gait, vertigo Psychiatric: Denies: anxiety, depression, suicidal thoughts, homicidal thoughts , auditory hallucinations, visual hallucinations Endocrine: Denies: fatigue Hematological/Lymphatic: Denies: easy bleeding, easy bruising Allergic/Immunologic: Denies: facial swelling, urticaria Abdominal Pain PMH - Past Medical History Medical history: Reports: arthritis, GERD, kidney stones, migraine, seizures, other Female Surgical History: Reports: non-contributory, cholecystectomy [employer]NAL [employer]FFA[employer] 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 history: Reports: endometriosis Psychiatric history: Reports: previous psychiatric hospitalization - Social History Smoking status: Current every day smoker Alcohol use: Reports: none Drug use: Reports: marijuana Physical Exam activey retching with dry heaving and no productive vomit - General Limitations: no limitations General appearance: alert, in no apparent distress - Head Head exam: atraumatic, normocephalic, normal inspection - Eye Eye exam: Present: normal appearance, PERRL, EOMI - Expanded Eye Exam Pupils: Left: reactive - ENT ENT exam: normal exam, normal oropharynx, mucous membranes moist - Expanded ENT Exam External ear exam: Present: normal external inspection Mouth exam: Present: normal external inspection Teeth exam: Present: normal inspection Throat exam: Present: normal inspection - Neck Neck exam: Present: normal inspection, full ROM, trachea midline - Chest Chest inspection: Present: normal inspection, symmetric chest wall rise - Respiratory Respiratory exam: Present: normal lung sounds bilaterally - Cardiovascular Cardiovascular exam: Present: regular rate, normal rhythm, normal heart sounds - Abdominal Exam Abdominal exam: Present: soft, tenderness, normal bowel sounds. Absent: Non- Tender, distention, guarding, rebound, rigidity, organomegaly, Jaramillo's sign, Rovsing's sign, tenderness at McBurney's Point, bruit, pulsatile mass Abdominal tenderness: Present: diffuse, mild - Extremities Exam Extremities exam: Present: normal inspection, full ROM. Absent: tenderness, pedal edema - Expanded Upper Extremity Exam Shoulder exam: Present: normal inspection, full ROM Arm exam: Present: normal inspection, full ROM Elbow exam: Present: normal inspection, full ROM Forearm/Wrist exam: Present: normal inspection, full ROM Hand exam: Present: normal inspection, full ROM Vascular exam: Normal: capillary refill, radial pulse - Expanded Lower Extremity Exam Hip/Pelvis exam: Present: normal inspection, full ROM Upper leg exam: Present: normal inspection, full ROM Knee exam: Present: normal inspection, full ROM Lower leg exam: Present: normal inspection, full ROM Ankle exam: Present: normal inspection, full ROM Foot/toe exam: Present: normal inspection, full ROM Neurovascular/Tendon exam: Absent: motor deficit, sensory deficit, tendon deficit - Back Exam Back exam: Present: normal inspection, full ROM. Absent: tenderness - Neurological Exam Neurological exam: Present: alert, oriented X3 - Expanded Neurological Exam Patient oriented to: Present: person, place, time Coma Scale Eye Opening: Spontaneous Coma Scale Motor Response: Obeys Commands Coma Scale Verbal Response: Oriented Coma Scale Total: 15 - Psychiatric Psychiatric exam: Present: normal affect, normal mood - Skin Skin exam: Present: warm, dry, intact, normal color Course Course Narrative: we will do abdominal pain workup with with ABCT to rule out colitis/kidhey stones/pyelo. IVF/zofran/fentanyl - Consultations Consultation #1: discussed case with Lesia REDMOND and she accepts patient to her service. Kar is agreeable to plan. Time: 18:41 Vital Signs Temperature 0 F L 01/06/17 15:59 Pulse Rate 0 01/06/17 15:59 Respiratory Rate 0 01/06/17 15:59 Blood Pressure 0/0 01/06/17 15:59 O2 Sat by Pulse Oximetry 0 01/06/17 15:59 Temperature 97.8 F 01/06/17 16:46 Pulse Rate 50 01/06/17 16:46 Respiratory Rate 18 01/06/17 16:46 Blood Pressure 134/78 01/06/17 16:46 O2 Sat by Pulse Oximetry 98 01/06/17 16:46 Oxygen Delivery Oxygen Delivery Room Air Abdominal Pain - Lab Data Result diagrams: 01/06/17 16:22 01/06/17 16:22 Lab Results 01/06/17 01/06/17 01/06/17 Range/Units 16:05 16:05 16:22 WBC 13.7 H (4.3-11.1) K/mcL RBC 4.65 (3.82-4.97) M/mcL Hgb 13.4 (11.5-15.4) g/dL Hct 41.2 (35.3-44.9) % MCV 88.6 (83.0-100.0) fL MCH 28.8 (28.0-33.3) pg MCHC 32.5 (31.6-35.5) g/dL RDW 13.7 (11.5-14.5) % Plt Count 421 H (140-400) K/mcL MPV 9.4 (9.4-12.4) fL Immature Gran % 0.1 (0-4) % Seg Neutrophils % 86.6 % Lymphocytes % 9.8 % Monocytes % 3.1 % Eosinophils % 0.0 % Basophils % 0.4 % Neutrophils # 11.9 H (1.6-8.9) K/mcL Lymphocytes # 1.3 (0.6-4.6) K/mcL Monocytes # 0.4 (0.0-1.3) K/mcL Eosinophils # 0.0 (0.0-0.6) K/mcL Basophils # 0.1 (0.0-0.2) K/mcL Immature Plt Fraction 2.1 (1.1-6.1) % PT (9.4-12.1) Seconds INR APTT (26.0-36.0) Seconds Sodium (136-145) mEq/L Potassium (3.5-4.5) mEq/L Chloride (98-109) mEq/L Carbon Dioxide (19-29) mEq/L BUN (7-20) mg/dL Creatinine (0.57-1.11) mg/dL Est GFR ( Amer) (> 60) Est GFR (Non-Af Amer) (> 60) BUN/Creatinine Ratio (6-26) Glucose (70-99) mg/dL Calculated Osmolality (280-300) Calcium (8.6-10.8) mg/dL Total Bilirubin (0.2-1.2) mg/dL Direct Bilirubin (0.0-0.5) mg/dL Indirect Bilirubin (0.0-1.2) mg/dL AST (5-34) Units/L ALT (0-55) Units/L Alkaline Phosphatase (38-126) Units/L Troponin I (0-0.03) ng/mL Serum Total Protein (6.0-8.3) g/dL Albumin (3.5-5.0) g/dL Globulin (2.4-3.5) g/dL Albumin/Globulin Ratio (1.1-2.2) Amylase (25-125) Units/L Lipase (8-78) Units/L Urine Test Negative (Negative) Urine Opiates Screen Negative (Doeivq=030) ng/mL Ur Barbiturates Screen Negative (Mkvspe=913) ng/mL Ur Phencyclidine Scrn Negative (Cutoff=25) ng/mL Ur Amphetamines Screen Positive H (Mvpwah=9485) ng/mL U Benzodiazepines Scrn Positive H (Xvgqrh=711) ng/mL Urine Cocaine Screen Negative (Cutoff= 300) ng/mL U Marijuana (THC) Screen Positive H (Cutoff = 50) ng/mL Specimen Rejected 01/06/17 01/06/17 01/06/17 Range/Units 16:22 16:22 16:22 WBC (4.3-11.1) K/mcL RBC (3.82-4.97) M/mcL Hgb (11.5-15.4) g/dL Hct (35.3-44.9) % MCV (83.0-100.0) fL MCH (28.0-33.3) pg MCHC (31.6-35.5) g/dL RDW (11.5-14.5) % Plt Count (140-400) K/mcL MPV (9.4-12.4) fL Immature Gran % (0-4) % Seg Neutrophils % % Lymphocytes % % Monocytes % % Eosinophils % % Basophils % % Neutrophils # (1.6-8.9) K/mcL Lymphocytes # (0.6-4.6) K/mcL Monocytes # (0.0-1.3) K/mcL Eosinophils # (0.0-0.6) K/mcL Basophils # (0.0-0.2) K/mcL Immature Plt Fraction (1.1-6.1) % PT 10.8 (9.4-12.1) Seconds INR 1.0 APTT 25.4 L (26.0-36.0) Seconds Sodium 140 (136-145) mEq/L Potassium 3.8 (3.5-4.5) mEq/L Chloride 106 (98-109) mEq/L Carbon Dioxide 21 (19-29) mEq/L BUN 13 (7-20) mg/dL Creatinine 1.05 (0.57-1.11) mg/dL Est GFR ( Amer) > 60 (> 60) Est GFR (Non-Af Amer) 59 L (> 60) BUN/Creatinine Ratio 12 (6-26) Glucose 144 H (70-99) mg/dL Calculated Osmolality 293 (280-300) Calcium 9.6 (8.6-10.8) mg/dL Total Bilirubin 0.3 (0.2-1.2) mg/dL Direct Bilirubin 0.1 (0.0-0.5) mg/dL Indirect Bilirubin 0.2 (0.0-1.2) mg/dL AST 10 (5-34) Units/L ALT 8 (0-55) Units/L Alkaline Phosphatase 60 (38-126) Units/L Troponin I 0.00 (0-0.03) ng/mL Serum Total Protein 7.5 (6.0-8.3) g/dL Albumin 4.0 (3.5-5.0) g/dL Globulin 3.5 (2.4-3.5) g/dL Albumin/Globulin Ratio 1.1 (1.1-2.2) Amylase 62 (25-125) Units/L Lipase < 10 (8-78) Units/L Urine Test (Negative) Urine Opiates Screen (Liucbp=314) ng/mL Ur Barbiturates Screen (Tplgsv=482) ng/mL Ur Phencyclidine Scrn (Cutoff=25) ng/mL Ur Amphetamines Screen (Verjcb=1603) ng/mL U Benzodiazepines Scrn (Havvep=938) ng/mL Urine Cocaine Screen (Cutoff= 300) ng/mL U Marijuana (THC) Screen (Cutoff = 50) ng/mL Specimen Rejected 01/06/17 Range/Units 16:22 WBC (4.3-11.1) K/mcL RBC (3.82-4.97) M/mcL Hgb (11.5-15.4) g/dL Hct (35.3-44.9) % MCV (83.0-100.0) fL MCH (28.0-33.3) pg MCHC (31.6-35.5) g/dL RDW (11.5-14.5) % Plt Count (140-400) K/mcL MPV (9.4-12.4) fL Immature Gran % (0-4) % Seg Neutrophils % % Lymphocytes % % Monocytes % % Eosinophils % % Basophils % % Neutrophils # (1.6-8.9) K/mcL Lymphocytes # (0.6-4.6) K/mcL Monocytes # (0.0-1.3) K/mcL Eosinophils # (0.0-0.6) K/mcL Basophils # (0.0-0.2) K/mcL Immature Plt Fraction (1.1-6.1) % PT (9.4-12.1) Seconds INR APTT (26.0-36.0) Seconds Sodium (136-145) mEq/L Potassium (3.5-4.5) mEq/L Chloride (98-109) mEq/L Carbon Dioxide (19-29) mEq/L BUN (7-20) mg/dL Creatinine (0.57-1.11) mg/dL Est GFR ( Amer) (> 60) Est GFR (Non-Af Amer) (> 60) BUN/Creatinine Ratio (6-26) Glucose (70-99) mg/dL Calculated Osmolality (280-300) Calcium (8.6-10.8) mg/dL Total Bilirubin (0.2-1.2) mg/dL Direct Bilirubin (0.0-0.5) mg/dL Indirect Bilirubin (0.0-1.2) mg/dL AST (5-34) Units/L ALT (0-55) Units/L Alkaline Phosphatase (38-126) Units/L Troponin I (0-0.03) ng/mL Serum Total Protein (6.0-8.3) g/dL Albumin (3.5-5.0) g/dL Globulin (2.4-3.5) g/dL Albumin/Globulin Ratio (1.1-2.2) Amylase (25-125) Units/L Lipase (8-78) Units/L Urine Test (Negative) Urine Opiates Screen (Jasolu=695) ng/mL Ur Barbiturates Screen (Rurmqc=926) ng/mL Ur Phencyclidine Scrn (Cutoff=25) ng/mL Ur Amphetamines Screen (Pgkbjo=2987) ng/mL U Benzodiazepines Scrn (Aoulfl=220) ng/mL Urine Cocaine Screen (Cutoff= 300) ng/mL U Marijuana (THC) Screen (Cutoff = 50) ng/mL Specimen Rejected Hemolyzed
[2017-01-06 16:44] LABS: Prothrombin Time 10.8 Seconds (9.4-12.1)
[2017-01-06 16:46] LABS: Alanine Aminotransferase 8 Units/L (0-55); Albumin/Globulin Ratio 1.1 (1.1-2.2); Alkaline Phosphatase 60 Units/L (38-126); Amylase 62 Units/L (25-125); Aspartate Amino Transferase 10 Units/L (5-34); BUN/Creatinine Ratio 12 (6-26); Bilirubin,Direct 0.1 mg/dL (0.0-0.5); Bilirubin,Indirect 0.2 mg/dL (0.0-1.2); Bilirubin,Total 0.3 mg/dL (0.2-1.2); Blood Urea Nitrogen 13 mg/dL (7-20); Calcium 9.6 mg/dL (8.6-10.8); Carbon Dioxide 21 mEq/L (19-29); Chloride 106 mEq/L (98-109); Globulin 3.5 g/dL (2.4-3.5); Glucose 144 mg/dL (70-99); Osmolality,Calculated 293 (280-300); Potassium 3.8 mEq/L (3.5-4.5); Sodium 140 mEq/L (136-145); Total Protein 7.5 g/dL (6.0-8.3); eGFR For African Americans > 60 (> 60); eGFR For Non-African Americans 59 (> 60)
[2017-01-06 16:47] LABS: Activated Partial Thrombo Time 25.4 Seconds (26.0-36.0); Lipase < 10 Units/L (8-78)
[2017-01-06] MEDS ORDERED: Metoclopramide 10 MG/2 ML VIAL IVP ONE (17:41)
[2017-01-06] MEDS ORDERED: Acetaminophen 325 MG TABLET PO PRN (20:08)
[2017-01-06] MEDS ORDERED: Naloxone 0.4 MG/ML INJ IVP PRN (20:08)
[2017-01-06] MEDS ORDERED: SUMAtriptan succinate 50 MG TABLET PO PRN (20:10)
--- NOTE | 2017-01-06 20:27 | Internal Med History&Physical ---
Date of Encounter: 01/07/17 Time of Encounter: 21:00 Assessment and Plan (1) Colitis Current visit: Yes Status: Acute Patient is afebrile, with mild leukocytosis. No free air, no abscess collection. Continue IV fluids Clear liquid diet for now, and advance diet as tolerated. Antiemetics IV Continue Cipro and Flagyl (2) Schizoaffective disorder, bipolar type Current visit: Yes Status: Chronic Resume home medications. (3) Depression Current visit: Yes Status: Chronic Resume all psych medications. Qualifiers: Depression Type: major depressive disorder Major depression recurrence: recurrent Active/Remission status: remission status unspecified Qualified Code(s): F33.9 - Major depressive disorder, recurrent, unspecified (4) Polysubstance abuse Current visit: Yes Status: Acute Encourage cessation. Monitor for withdrawal. Internal Medicine - H&P: HPI Chief complaint: Nausea, vomiting, and diarrhea. Admitted From: Home Plans for Post Hospital Care: Home History of present illness: Ms. Calle is a 36 year old female with extensive psychiatric history including depression, bipolar disorder, polysubstance abuse, chronic pancreatitis. She presented to the ER with complaints of 24 hours long nausea, vomiting and diarrhea. She reports nonbilious nonbloody vomiting started about 24 hours prior to presentation, with associated poor oral intake and inability to keep anything down. She reports associated lower abdominal pain and watery diarrhea. She has had 3 episodes of nonbloody diarrhea within 24 hours. She denies history of same in any family member, she denies unusual eating habits. She denies fever or chills. Abdominal pain is located in the left lower and right lower quadrant and nonradiating. Said to be between 3-5/10. She has no other symptoms at this time. Review of system is unremarkable. Workup in the ER reveals mild leukocytosis, CAT scan shows colitis. Urine toxicology with presence of marijuana, amphetamines and benzodiazepines. Past Med Surg Social Fam HX - Past Medical History Medical history: arthritis, GERD, kidney stones, migraine, seizures, other Psychiatric history: previous psychiatric hospitalization - Past Surgical History Surgical History: cholecystectomy, other - Social History Smoking Status: Current every day smoker Smokeless Tobacco Status: No Alcohol use: none Drug use: marijuana - Family History Mother Adopted: No Family Member Ethnicity: Non- Living Status: Hx Family Cardiac Disorders: No Hx Family Respiratory Disorders: No Hx Family Cancer: Yes (Breast) Hx Family GI Disorders: No Hx Family Endocrine Disorder: No Hx Family Neuromuscular Disorders: No Hx Family Neurologic Disorders: No Hx Family HEENT Disorders: No Hx Family Autoimmune Disorders: No Internal Medicine - H&P: Meds Gabapentin [Neurontin] 400 mg PO TID 12/02/15 [History] Lipase/Protease/Amylase [Creon Dr 24,000 Units Capsule] 2 cap PO TIDWM 12/02/15 [History] Norgestimate-Ethinyl Estradiol [Sprintec 28 Day Tablet] 1 tab PO DAILY 12/02/15 [History] SUMAtriptan Succinate [Imitrex] 100 mg PO DAILY PRN MDD 200 mg 12/02/15 [History ] Tizanidine HCl [Zanaflex] 4 mg PO Q8H PRN 12/02/15 [History] Ranitidine HCl [Heartburn Relief] 150 mg PO HS 11/06/16 [History] Buspirone HCl [Buspar] 30 mg PO TID #90 11/13/16 [Rx] Duloxetine HCl [Cymbalta] 60 mg PO BID #60 11/13/16 [Rx] Quetiapine Fumarate [Seroquel] 100 mg PO 0900,1300,1700 #90 tab 11/13/16 [Rx] Quetiapine Fumarate [Seroquel] 200 mg PO HS #30 11/13/16 [Rx] Trazodone HCl 300 mg PO HS #60 11/13/16 [Rx] diazePAM [Valium] 10 mg PO BID #60 11/13/16 [Rx] lamoTRIgine [Lamictal] 200 mg PO BID #60 11/13/16 [Rx] Dicyclomine [Bentyl] 10 mg PO QID PRN #20 capsule 12/13/16 [Rx] Ondansetron ODT [Zofran ODT] 4 mg SL Q6HR PRN #15 tab.rapdis 12/13/16 [Rx] Amitriptyline [Elavil] 25 mg PO HS 01/06/17 [History] Cholecalciferol (Vitamin D3) [Vitamin D3] 10,000 unit PO QWEEK 01/06/17 [History ] Lipase/Protease/Amylase [Creon Dr 24,000 Units Capsule] 1 each PO AD 01/06/17 [ History] Omeprazole [PriLOSEC] 40 mg PO DAILY 01/06/17 [History] 3 Allergy/AdvReac Type Severity Reaction Status Date / Time metoclopramide [From Reglan] Allergy Seizure Verified 09/17/16 00:35 prochlorperazine Allergy Difficulty Verified 09/17/16 00:35 [From Compazine] Breathing haloperidol AdvReac See Verified 09/17/16 00:35 Comments All Systems PM: A 10-system review of systems was performed and is negative for pertinent findings except as documented above in the HPI. - Constitutional Constitutional: no chills, no fever(s), no night sweats - EENT Eyes: no change in vision, no discharge, no pain, no photophobia Ears: no ear discharge, no ear pain, no tinnitus Nose, mouth and throat: no dysphagia, no nasal discharge, no neck pain, no sore throat - Cardiovascular Cardiovascular ROS IM: no chest pain, no diaphoresis, no dyspnea, no lightheadedness, no palpitations, no syncope - Respiratory Respiratory: no cough, no dyspnea, no wheezing, no excessive phlegm production - Gastrointestinal Gastrointestinal: as per HPI - Genitourinary Genitourinary: no change in urinary stream, no dysuria, no flank pain, no hematuria - Musculoskeletal Musculoskeletal ROS IM: no numbness, no tingling - Integumentary Integumentary IM: no rash, no unusual bruising - Neurological Neurological ROS: no confusion, no convulsions, no focal weakness, no numbness, no tingling, no tremor(s) - Hematologic/Lymphatic Hematologic/Lymphatic: no easy bruising - Constitutional Vitals: Temp Pulse Resp BP Pulse Ox 97.8 F 50 18 128/74 98 01/06/17 18:51 01/06/17 16:46 01/06/17 18:51 01/06/17 18:51 01/06/17 16:46 General appearance: Present: A&O X 3, pleasant, no acute distress - Head Head exam: Present: atraumatic, normocephalic - Eye Eye exam: Present: PERRL, conjuntiva pink, sclera anicteric Pupils: Present: PERRL - Neck Neck exam general surgery: Present: supple, trachea midline. Absent: lymphadenopathy - Respiratory Respiratory exam: Present: CTAB. Absent: accessory muscle use, rales, rhonchi, wheezes - Cardiovascular Cardiovascular exam: Present: RRR, +S1, +S2. Absent: diastolic murmur, gallop, rubs, systolic murmur - GI/Abdominal GI/Abdominal exam: Present: normal bowel sounds, soft, no peritoneal signs. Absent: distended, tenderness - Extremities Exam Extremities exam: Present: warm, radial pulses palpable and symmetrical. Absent : calf tenderness, cyanotic, pedal edema - Neurological Exam Neurological exam: Present: alert, CN II-XII intact, oriented X3, no focal deficits. Absent: pronater drift, facial droop, speech deficit - Skin Skin exam: Present: dry, intact Internal Med - H&P Results - Labs CBC & Chem 7: 01/06/17 16:22 01/06/17 16:22
[2017-01-06] MEDS ORDERED: Ondansetron 4 MG/2 ML VIAL IM ONE (20:46)
[2017-01-06] MEDS: 0.9 % Sodium Chloride 1,000 ML IVC SCH (20:48)
[2017-01-06] MEDS: *HR* Morphine 2 MG/ML SYRINGE IVP PRN (20:48)
[2017-01-06] MEDS: diazePAM 10 MG TABLET PO SCH (21:19)
[2017-01-06] MEDS: lamoTRIgine 100 MG TABLET PO SCH (21:20)
[2017-01-06] MEDS: Gabapentin 400 MG CAPSULE PO SCH (21:20)
[2017-01-06] MEDS: traZODone 50 MG TABLET PO SCH (21:20)
[2017-01-06] MEDS: MetroNIDAZOLE 500 MG/100 ML 500 MG/100 ML BAG IVPB SCH (23:23)
[2017-01-06] MEDS: tiZANidine 4 MG TABLET PO PRN (23:23)
[2017-01-06] MEDS: *HR* HYDROcodone/Acet 5/325 mg TABLET PO PRN (23:25)
[2017-01-07] MEDS: *HR* Morphine 2 MG/ML SYRINGE IVP PRN ×5 (01:19→18:49)
[2017-01-07] MEDS: Ondansetron 4 MG/2 ML VIAL IVP PRN (04:44)
[2017-01-07] MEDS: *HR* HYDROcodone/Acet 5/325 mg TABLET PO PRN ×4 (04:45→21:51)
[2017-01-07] MEDS: *HR* Enoxaparin 40 MG/0.4 ML SYRINGE SQ SCH (04:46)
[2017-01-07 05:28] LABS: Basophils % 0.3 %; Eosinophils % 0.1 %; Hematocrit 35.1 % (35.3-44.9); Immature Granulocytes % 0.2 % (0-4); Lymphocytes # 3.6 K/mcL (0.6-4.6); Lymphocytes % 29.8 %; Mean Corpuscular HGB Conc 32.8 g/dL (31.6-35.5); Mean Corpuscular Hemoglobin 28.9 pg (28.0-33.3); Mean Corpuscular Volume 88.2 fL (83.0-100.0); Mean Platelet Volume 10.1 fL (9.4-12.4); Monocytes # 0.9 K/mcL (0.0-1.3); Monocytes % 7.1 %; Neutrophils # 7.6 K/mcL (1.6-8.9); Nucleated Red Blood Cells 0.2 /100 WBC (0); Platelet Count 355 K/mcL (140-400); Red Blood Count 3.98 M/mcL (3.82-4.97); Red Cell Distribution Width 13.8 % (11.5-14.5); Segmented Neutrophils % 62.5 %
[2017-01-07 05:40] LABS: Hemoglobin 11.5 g/dL (11.5-15.4)
[2017-01-07 05:51] LABS: BUN/Creatinine Ratio 13 (6-26); Blood Urea Nitrogen 11 mg/dL (7-20); Calcium 8.5 mg/dL (8.6-10.8); Carbon Dioxide 20 mEq/L (19-29); Chloride 107 mEq/L (98-109); Glucose 86 mg/dL (70-99); Osmolality,Calculated 281 (280-300); Potassium 3.7 mEq/L (3.5-4.5); Sodium 136 mEq/L (136-145); eGFR For African Americans > 60 (> 60); eGFR For Non-African Americans > 60 (> 60)
[2017-01-07] MEDS ORDERED: (Norgestimate-Ethinyl Estradiol [Sprintec 28 Day Tablet]) PO SCH (09:00)
[2017-01-07] MEDS: diazePAM 10 MG TABLET PO SCH ×2 (09:03→20:48)
[2017-01-07] MEDS: tiZANidine 4 MG TABLET PO PRN ×2 (09:03→16:51)
[2017-01-07] MEDS: Gabapentin 400 MG CAPSULE PO SCH ×3 (09:03→20:47)
[2017-01-07] MEDS: lamoTRIgine 100 MG TABLET PO SCH ×2 (09:04→20:47)
[2017-01-07] MEDS: Pantoprazole 40 MG VIAL IVP SCH (09:04)
[2017-01-07] MEDS: MetroNIDAZOLE 500 MG/100 ML 500 MG/100 ML BAG IVPB SCH ×2 (09:08→16:52)
[2017-01-07] MEDS: 0.9 % Sodium Chloride 1,000 ML IVC SCH (09:26)
--- NOTE | 2017-01-07 16:16 | Internal Med Progress Note ---
Date of Encounter: 01/07/17 Time of Encounter: 10:10 - Assessment and plan (1) Colitis Current Visit: Yes Status: Acute Assessment and plan: Continue current antibiotics. Possible infectious versus ischemic etiology. Will check GI panel. Continue supportive care. Clear liquids for now and advance diet as tolerated. Pain control. High risk for complications due to use of intravenous narcotic medications. Recommend outpatient follow-up with gastroenterology and colonoscopy. (2) Depression Current Visit: Yes Status: Chronic Assessment and plan: Continue home medications for this condition. Qualifiers: Depression Type: major depressive disorder Major depression recurrence: recurrent Active/Remission status: remission status unspecified Qualified Code(s): F33.9 - Major depressive disorder, recurrent, unspecified (3) Polysubstance abuse Current Visit: Yes Status: Acute (4) Schizoaffective disorder, bipolar type Current Visit: Yes Status: Chronic Assessment and plan: On Lamictal, BuSpar, Seroquel, trazodone and Elavil (5) Chronic pancreatitis Current Visit: Yes Status: Chronic Assessment and plan: Patient has history of chronic pancreatitis. Uncertain etiology. Will continue Creon. Qualifiers: Pancreatitis type: other Qualified Code(s): K86.1 - Other chronic pancreatitis - Subjective Interval history: Patient complaining of continued abdominal pain all across her abdomen. She has continued to have nausea but no vomiting or diarrhea. She reports that the pain is intermittent and cramping in nature. Has a history of chronic pancreatitis. Has been dealing with her current abdominal pain for the past couple of months intermittently. - Constitutional Vitals: Temp Pulse Resp BP Pulse Ox 98.3 F 60 18 102/67 99 01/07/17 14:21 01/07/17 14:37 01/07/17 14:37 01/07/17 14:37 01/07/17 14:21 General appearance: Present: mild distress, A&O X 3, pleasant, answers questions appropriately - Neck Neck exam general surgery: Present: supple, trachea midline. Absent: lymphadenopathy - Respiratory Respiratory exam: Present: CTAB. Absent: accessory muscle use, rales, rhonchi, wheezes - Cardiovascular Cardiovascular exam: Present: RRR, +S1, +S2. Absent: diastolic murmur, gallop, rubs, systolic murmur - GI/Abdominal GI/Abdominal exam: Present: normal bowel sounds, soft, tenderness (Lower abdominal quadrants), no peritoneal signs. Absent: distended - Extremities Exam Extremities exam: Present: warm, radial pulses palpable and symmetrical. Absent : calf tenderness, cyanotic, pedal edema - Neurological Exam Neurological exam: Present: alert, oriented X3, no focal deficits, strengths equal and symetr throughout. Absent: facial droop, speech deficit Internal Medicine: Result - Labs CBC & Chem 7: 01/07/17 04:45 01/07/17 04:45 Labs: Short CBC 01/07/17 Range/Units 04:45 WBC 12.1 H (4.3-11.1) K/mcL Hgb 11.5 D (11.5-15.4) g/dL Hct 35.1 L (35.3-44.9) % Plt Count 355 (140-400) K/mcL Neutrophils # 7.6 (1.6-8.9) K/mcL BMP 01/07/17 04:45 Sodium 136 Potassium 3.7 Chloride 107 Carbon Dioxide 20 BUN 11 Creatinine 0.85 Glucose 86 Calcium 8.5 L - ABG Interpretation ABG results: PT/INR, D-dimer PT 10.8 Seconds (9.4-12.1) 01/06/17 16:22 Consult Discharge Plan - Plan Referrals: Alka Castanon DO [Primary Care Provider] -
[2017-01-07 22:37] LABS: Bilirubin,Urine Negative (Negative); Blood,Urine Negative (Negative); Clarity,Urine Clear (Clear); Color,Urine Yellow (Yellow); Glucose,Urine (UA) Normal (Normal); Ketones,Urine Negative (Negative); Leukocyte Esterase,Urine Negative (Negative); Nitrite,Urine Negative (Negative); Protein,Urine Negative (Neg-Trace); Specific Gravity,Urine 1.013 (1.010-1.025); Urobilinogen,Urine Normal (Normal)
[2017-01-08] MEDS: traZODone 50 MG TABLET PO SCH ×2 (00:09→21:43)
[2017-01-08] MEDS: *HR* Morphine 2 MG/ML SYRINGE IVP PRN ×6 (00:15→23:58)
[2017-01-08] MEDS: 0.9 % Sodium Chloride 1,000 ML IVC SCH ×3 (00:19→23:44)
[2017-01-08] MEDS: MetroNIDAZOLE 500 MG/100 ML 500 MG/100 ML BAG IVPB SCH ×4 (00:19→23:46)
[2017-01-08] MEDS: tiZANidine 4 MG TABLET PO PRN ×3 (01:29→21:45)
[2017-01-08] MEDS: *HR* HYDROcodone/Acet 5/325 mg TABLET PO PRN ×5 (03:44→21:45)
[2017-01-08] MEDS: Ondansetron 4 MG/2 ML VIAL IVP PRN ×3 (03:45→23:58)
[2017-01-08] MEDS: *HR* Enoxaparin 40 MG/0.4 ML SYRINGE SQ SCH (05:50)
[2017-01-08 06:06] LABS: Basophils # 0.1 K/mcL (0.0-0.2); Basophils % 0.9 %; Eosinophils # 0.2 K/mcL (0.0-0.6); Eosinophils % 2.2 %; Hemoglobin 11.5 g/dL (11.5-15.4); Immature Granulocytes % 0.1 % (0-4); Lymphocytes # 4.3 K/mcL (0.6-4.6); Mean Corpuscular HGB Conc 32.9 g/dL (31.6-35.5); Mean Corpuscular Hemoglobin 29.6 pg (28.0-33.3); Mean Corpuscular Volume 90.2 fL (83.0-100.0); Mean Platelet Volume 10.8 fL (9.4-12.4); Monocytes # 0.6 K/mcL (0.0-1.3); Monocytes % 7.2 %; Neutrophils # 2.5 K/mcL (1.6-8.9); Platelet Count 190 K/mcL (140-400); Red Blood Count 3.88 M/mcL (3.82-4.97); Red Cell Distribution Width 14.1 % (11.5-14.5); Segmented Neutrophils % 32.6 %
[2017-01-08 06:41] LABS: Platelet Estimate Normal (Normal)
[2017-01-08] MEDS: Gabapentin 400 MG CAPSULE PO SCH ×3 (08:49→21:44)
[2017-01-08] MEDS: lamoTRIgine 100 MG TABLET PO SCH ×2 (08:50→21:45)
[2017-01-08] MEDS: diazePAM 10 MG TABLET PO SCH ×2 (08:50→21:44)
[2017-01-08] MEDS: Pantoprazole 40 MG VIAL IVP SCH (09:22)
--- NOTE | 2017-01-08 16:11 | Internal Med Progress Note ---
Date of Encounter: 01/08/17 Time of Encounter: 11:00 - Assessment and plan (1) Colitis Current Visit: Yes Status: Acute Assessment and plan: Continue antibiotics. Will transition to oral when patient able to tolerate diet well. Continue supportive care. Pain control. High risk for complications due to use of intravenous narcotic medications (2) Chronic pancreatitis Current Visit: Yes Status: Chronic Assessment and plan: Continue Creon. Qualifiers: Pancreatitis type: other Qualified Code(s): K86.1 - Other chronic pancreatitis (3) Depression Current Visit: Yes Status: Chronic Assessment and plan: Continue antidepressants Qualifiers: Depression Type: major depressive disorder Major depression recurrence: recurrent Active/Remission status: remission status unspecified Qualified Code(s): F33.9 - Major depressive disorder, recurrent, unspecified (4) Polysubstance abuse Current Visit: Yes Status: Acute (5) Schizoaffective disorder, bipolar type Current Visit: Yes Status: Chronic - Subjective Interval history: Continues to have abdominal pain. Along with nausea. Not much improved compared to yesterday. Has not had any loose stools this morning. Tolerating clear liquids well. No new episodes of emesis - Constitutional Vitals: Temp Pulse Resp BP Pulse Ox 98.4 F 64 16 126/86 98 01/08/17 14:34 01/08/17 14:34 01/08/17 14:34 01/08/17 14:34 01/08/17 14:34 General appearance: Present: mild distress, A&O X 3, pleasant, answers questions appropriately - Respiratory Respiratory exam: Present: CTAB. Absent: accessory muscle use, rales, rhonchi, wheezes - Cardiovascular Cardiovascular exam: Present: RRR, +S1, +S2. Absent: diastolic murmur, gallop, rubs, systolic murmur - GI/Abdominal GI/Abdominal exam: Present: normal bowel sounds, soft, tenderness (Generalized) , no peritoneal signs. Absent: distended - Extremities Exam Extremities exam: Present: warm, radial pulses palpable and symmetrical. Absent : calf tenderness, cyanotic, pedal edema - Neurological Exam Neurological exam: Present: alert, oriented X3, no focal deficits. Absent: facial droop, speech deficit Internal Medicine: Result - Labs CBC & Chem 7: 01/08/17 05:56 01/07/17 04:45 Labs: Short CBC 01/08/17 Range/Units 05:56 WBC 7.6 (4.3-11.1) K/mcL Hgb 11.5 (11.5-15.4) g/dL Hct 35.0 L (35.3-44.9) % Plt Count 190 (140-400) K/mcL Neutrophils # 2.5 (1.6-8.9) K/mcL Urine 01/07/17 Range/Units 19:30 Urine Color Yellow (Yellow) Urine Clarity Clear (Clear) Urine pH 7.0 (5.0-8.0) pH Units Ur Specific [place] 1.013 (1.010-1.025) Urine Protein Negative (Neg-Trace) mg/dL Urine Glucose (UA) Normal (Normal) mg/dL - ABG Interpretation ABG results: PT/INR, D-dimer PT 10.8 Seconds (9.4-12.1) 01/06/17 16:22 Consult Discharge Plan - Plan Referrals: Alka Castanon DO [Primary Care Provider] -
[2017-01-09] MEDS: Ondansetron 4 MG/2 ML VIAL IVP PRN ×2 (00:03→10:06)
[2017-01-09] MEDS: *HR* Morphine 2 MG/ML SYRINGE IVP PRN ×2 (04:12→09:21)
[2017-01-09] MEDS: *HR* Enoxaparin 40 MG/0.4 ML SYRINGE SQ SCH (06:29)
[2017-01-09] MEDS: *HR* HYDROcodone/Acet 5/325 mg TABLET PO PRN ×3 (06:30→16:09)
[2017-01-09] MEDS: 0.9 % Sodium Chloride 1,000 ML IVC SCH ×2 (06:31→14:46)
[2017-01-09] MEDS: Pantoprazole 40 MG VIAL IVP SCH (09:22)
[2017-01-09] MEDS: diazePAM 10 MG TABLET PO SCH (09:24)
[2017-01-09] MEDS: Gabapentin 400 MG CAPSULE PO SCH ×2 (09:24→14:46)
[2017-01-09] MEDS: lamoTRIgine 100 MG TABLET PO SCH (09:24)
[2017-01-09] MEDS: tiZANidine 4 MG TABLET PO PRN (10:03)
[2017-01-09] MEDS: metroNIDAZOLE 500 MG TABLET PO SCH ×2 (10:03→14:46)
[2017-01-09 15:04] VITALS: BP 113/77
--- NOTE | 2017-01-09 15:30 | Discharge Summary ---
Date of Encounter: 01/09/17 Time of Encounter: 15:25 - Discharge Diagnosis (1) Colitis Priority: Primary Status: Acute (2) Chronic pancreatitis Priority: Secondary Status: Chronic Qualifiers: Pancreatitis type: other Qualified Code(s): K86.1 - Other chronic pancreatitis (3) Depression Priority: Secondary Status: Chronic Qualifiers: Depression Type: major depressive disorder Major depression recurrence: recurrent Active/Remission status: remission status unspecified Qualified Code(s): F33.9 - Major depressive disorder, recurrent, unspecified (4) Polysubstance abuse Priority: Secondary Status: Acute (5) Schizoaffective disorder, bipolar type Priority: Secondary Status: Chronic - Discharge Medications Prescriptions: HYDROcodone/Acet 5/325 mg [[place] 5-325 mg] 1 tab PO Q4HR PRN #14 tablet PRN Reason: Moderate Pain (4-6) Promethazine [Phenergan] 25 mg PO Q6HR PRN #20 tablet PRN Reason: Nausea Cefdinir [Omnicef] 300 mg PO BID #14 capsule Duloxetine HCl [Cymbalta] 60 mg PO BID #60 capsule. lamoTRIgine [Lamictal] 200 mg PO BID #60 tablet metroNIDAZOLE [Flagyl] 500 mg PO TID #21 tablet Quetiapine Fumarate [Seroquel] 100 mg PO 0900,1300,1700 #90 tab Quetiapine Fumarate [Seroquel] 200 mg PO HS #30 tablet Home Medications: Gabapentin [Neurontin] 400 mg PO TID 12/02/15 [History] Lipase/Protease/Amylase [Ursula Miller 24,000 Units Capsule] 2 cap PO TIDWM 12/02/15 [History] Norgestimate-Ethinyl Estradiol [Sprintec 28 Day Tablet] 1 tab PO DAILY 12/02/15 [History] SUMAtriptan Succinate [Imitrex] 100 mg PO DAILY PRN MDD 200 mg 12/02/15 [History ] Tizanidine HCl [Zanaflex] 4 mg PO Q8H PRN 12/02/15 [History] Ranitidine HCl [Heartburn Relief] 150 mg PO HS 11/06/16 [History] Buspirone HCl [Buspar] 30 mg PO TID #90 11/13/16 [Rx] Trazodone HCl 300 mg PO HS #60 11/13/16 [Rx] diazePAM [Valium] 10 mg PO BID #60 11/13/16 [Rx] Dicyclomine [Bentyl] 10 mg PO QID PRN #20 capsule 12/13/16 [Rx] Ondansetron ODT [Zofran ODT] 4 mg SL Q6HR PRN #15 tab.rapdis 12/13/16 [Rx] Amitriptyline [Elavil] 25 mg PO HS 01/06/17 [History] Cholecalciferol (Vitamin D3) [Vitamin D3] 10,000 unit PO QWEEK 01/06/17 [History ] Lipase/Protease/Amylase [Creon Dr 24,000 Units Capsule] 1 each PO AD 01/06/17 [ History] Omeprazole [PriLOSEC] 40 mg PO DAILY 01/06/17 [History] Cefdinir [Omnicef] 300 mg PO BID #14 capsule 01/09/17 [Rx] Duloxetine HCl [Cymbalta] 60 mg PO BID #60 capsule.dr 01/09/17 [Rx] HYDROcodone/Acet 5/325 mg [[place] 5-325 mg] 1 tab PO Q4HR PRN #14 tablet [Rx] Promethazine [Phenergan] 25 mg PO Q6HR PRN #20 tablet 01/09/17 [Rx] Quetiapine Fumarate [Seroquel] 100 mg PO 0900,1300,1700 #90 tab 01/09/17 [Rx] Quetiapine Fumarate [Seroquel] 200 mg PO HS #30 tablet 01/09/17 [Rx] lamoTRIgine [Lamictal] 200 mg PO BID #60 tablet 01/09/17 [Rx] metroNIDAZOLE [Flagyl] 500 mg PO TID #21 tablet 01/09/17 [Rx] Allergies/Adverse Reactions: 3 Allergy/AdvReac Type Severity Reaction Status Date / Time metoclopramide [From Reglan] Allergy Seizure Verified 09/17/16 00:35 prochlorperazine Allergy Difficulty Verified 09/17/16 00:35 [From Compazine] Breathing haloperidol AdvReac See Verified 09/17/16 00:35 Comments Date of admission: 01/06/17 20:08 Primary care physician: Alka Castanon DO Discharging clinician: Christin Suresh Anticipated date of discharge: 01/09/17 - Patient Status Disposition: Home, Self-Care Condition: Good Functional capacity at discharge: independent ambulation Overall status at discharge: patient is progressing back to baseline - Discharge Instructions Instructions: Pancreatitis (DC) Follow Up With: Alka Castanon DO [Primary Care Provider] - (PRAFUL) Dmitri Powell MD [Partnered Physician] - (Follow up for colitis/ chronic pancreatitis) Additional Instructions: Please follow up with a psychiatrist for management of psychiatric diseases - Diet and Activity Activity: increase activity as tolerated Diet: low fat, low cholesterol, low salt diet Hospital course: Ms. Calle is a 36 year old female patient with history of depression, shizoaffective disorder bipolar type, polysubstance abuse, chronic pancreatitis was hospitalized here with complaints of intractable nausea and vomiting along with diarrhea. This was also associated with lower abdominal pain, nonradiating and without any hematochezia. Patient underwent CT scan of the abdomen and pelvis in the ER which was showed mild colitis involving the transverse descending and sigmoid colon. No obstruction or free air was identified. Patient was started on treatment for this with IV hydration, kept nothing by mouth, and started on intravenous antibiotics. Her symptoms persisted couple of days despite adequate treatment. She however did not have any further episodes of diarrhea. As such no samples could be obtained for stool studies for infectious organisms. Since last night her pain has improved and she is not able to keep her food down. Her nausea has also improved. She is tolerating oral medications and her pain is being controlled with oral medications. She is clinically stable to be discharged home. She will follow up with gastroenterology for further evaluation which may include repeat colonoscopy. Etiology of her colitis is uncertain but could be inflammatory or related to her pancreatitis/amphetamine use. She will complete a short course of antibiotics. She will follow-up with her primary care provider for further management and referrals as needed. She is also on multiple medications for her depression including Cymbalta and trazodone, Elavil and Seroquel. Her QT has been prolonged here at 500. As such she is not being prescribed and wants. She will be discharged home on Flagyl and Omnicef. Urine toxicology screen was positive for amphetamines, benzodiazepines and marijuana. Her nausea and persistent vomiting could also be related to cannabis hyperemesis syndrome. For her chronic pancreatitis, patient is on Creon and she is advised to take these medications as prescribed. - Time Spent with Patient Total time spent providing and/or coordinating discharge services: Greater than 30 minutes (40 min) - Constitutional Vitals: Temp Pulse Resp BP Pulse Ox 97.5 F L 61 16 113/77 96 01/09/17 15:02 01/09/17 15:02 01/09/17 15:02 01/09/17 15:02 01/09/17 15:02 General appearance: Present: cooperative, mild distress, A&O X 3, pleasant, answers questions appropriately - Neck Neck exam general surgery: Present: supple, trachea midline. Absent: lymphadenopathy - Cardiovascular Cardiovascular exam: Present: RRR, +S1, +S2. Absent: diastolic murmur, gallop, rubs, systolic murmur - GI/Abdominal GI/Abdominal exam: Present: normal bowel sounds, soft, tenderness (lower abdominal quadrants), no peritoneal signs. Absent: distended - Extremities Exam Extremities exam: Present: warm, radial pulses palpable and symmetrical. Absent : calf tenderness, cyanotic, pedal edema
[2017-01-09] MEDS ORDERED: FLUARIX QUAD 2017-18 36MOS UP/PF 0.5 ML SYRINGE IM ONE (15:51)
--- NOTE | 2017-01-11 08:34 | Electrocardiograph Report ---
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
== END 2017-01-09 16:57 | disposition home or self-care (01) | DRG 392 ==
LOC: 3ANU 15:58 → EMEROO 15:58 → 3ANU 19:36
PROVIDERS: ADMIT Nurse Practitioner Family; ATTEND Internal Medicine

== ENCOUNTER 2017-01-28 02:16 | Inpatient (IN) ==
[2017-01-28] MEDS ORDERED: Ketorolac 30 MG/ML VIAL IM ONE (03:13)
[2017-01-28] MEDS ORDERED: Ondansetron ODT 4 MG TAB.RAPDIS SL ONE ×2 (03:13→04:54)
--- NOTE | 2017-01-28 03:43 | Emergency Department Note ---
Disposition Clinical Impression: Leg pain, left, Elevated CK Closed nondisplaced fracture of fifth left metatarsal bone Qualifiers: Encounter type: initial encounter Qualified Code(s): S92.355A - Nondisplaced fracture of fifth metatarsal bone, left foot, initial encounter for closed fracture Compartment syndrome Qualifiers: Compartment syndrome type: traumatic Encounter type: initial encounter Compartment syndrome location: lower extremity Laterality: left Qualified Code(s ): T79.A22A - Traumatic compartment syndrome of left lower extremity, initial encounter Disposition: Admitted As Inpatient Condition: Good Referrals: Alka Castanon DO [Primary Care Provider] - Time of Disposition: 07:10 Lower Extremity Injury HPI - General Chief Complaint: ED Extremity Injury, Lower Stated Complaint: LLE swelling/pain Time Seen by Provider: 01/28/17 02:21 Source: patient, EMS Limitations: no limitations Nursing Notes Reviewed: Yes Vital Signs Reviewed: Yes - History of Present Illness HPI Narrative: Patient is a 36-year-old female smoker that arrives by squad with concern for injury to her left lower extremity. She states initially she had woken yesterday morning with swelling and pain to her calf as well as numbness over her foot. She states that this has difficulty for her to walk and consequentially she has had mechanical falls multiple times today. She describes swelling over her calf, redness of her foot, and difficulty dorsiflexing and moving her toes. Her pain is accompanied with nausea. Pain is worse with palpation, weight bearing and movement of her ankle. She does mention that she took her friend's Percocet 10 which has helped the pain this morning. She takes oral contraceptives. Other than the fall she denies any known injury, or recent illness. She denies any prolonged downtime, injury to her head, cervical or back pain, h/o of DVT, bleeding disorders. - Related Data Home Medications Medication Instructions Recorded Confirmed Gabapentin [Neurontin] 400 mg PO TID 12/02/15 01/06/17 Lipase/Protease/Amylase [Creon Dr 2 cap PO TIDWM 12/02/15 01/06/17 24,000 Units Capsule] Norgestimate-Ethinyl Estradiol 1 tab PO DAILY 12/02/15 01/06/17 [Sprintec 28 Day Tablet] SUMAtriptan Succinate [Imitrex] 100 mg PO DAILY PRN MDD 200 mg 12/02/15 01/06/17 Tizanidine HCl [Zanaflex] 4 mg PO Q8H PRN 12/02/15 01/06/17 Ranitidine HCl [Heartburn Relief] 150 mg PO HS 11/06/16 01/06/17 Amitriptyline [Elavil] 25 mg PO HS 01/06/17 01/06/17 Cholecalciferol (Vitamin D3) 10,000 unit PO QWEEK 01/06/17 01/06/17 [Vitamin D3] Lipase/Protease/Amylase [Ursula Miller 1 each PO AD 01/06/17 01/06/17 24,000 Units Capsule] Omeprazole [PriLOSEC] 40 mg PO DAILY 01/06/17 01/06/17 Previous Rx's Medication Instructions Recorded Buspirone HCl [Buspar] 30 mg PO TID #90 11/13/16 Trazodone HCl 300 mg PO HS #60 11/13/16 diazePAM [Valium] 10 mg PO BID #60 11/13/16 Dicyclomine [Bentyl] 10 mg PO QID PRN #20 capsule 12/13/16 Ondansetron ODT [Zofran ODT] 4 mg SL Q6HR PRN #15 tab.rapdis 12/13/16 Cefdinir [Omnicef] 300 mg PO BID #14 capsule 01/09/17 Duloxetine HCl [Cymbalta] 60 mg PO BID #60 capsule. 01/09/17 HYDROcodone/Acet 5/325 mg [[place] 1 tab PO Q4HR PRN #14 tablet 01/09/17 5-325 mg] Promethazine [Phenergan] 25 mg PO Q6HR PRN #20 tablet 01/09/17 Quetiapine Fumarate [Seroquel] 100 mg PO 0900,1300,1700 #90 tab 01/09/17 Quetiapine Fumarate [Seroquel] 200 mg PO HS #30 tablet 01/09/17 lamoTRIgine [Lamictal] 200 mg PO BID #60 tablet 01/09/17 metroNIDAZOLE [Flagyl] 500 mg PO TID #21 tablet 01/09/17 Allergies Allergy/AdvReac Type Severity Reaction Status Date / Time metoclopramide [From Reglan] Allergy Seizure Verified 09/17/16 00:35 prochlorperazine Allergy Difficulty Verified 09/17/16 00:35 [From Compazine] Breathing haloperidol AdvReac See Verified 09/17/16 00:35 Comments All systems ED: reviewed and negative except as stated. Constitutional: Denies: fever, chills Eyes: Denies: eye discharge ENT ED: Denies: throat pain Cardiovascular: Denies: chest pain, palpitations Respiratory: Denies: dyspnea Gastrointestinal: Reports: nausea. Denies: abdominal pain Genitourinary: Denies: dysuria Musculoskeletal: Reports: as per HPI. 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 Absent: conjunctival injection - ENT ENT exam: normal oropharynx, mucous membranes moist - Neck Neck exam: Present: full ROM. Absent: tenderness - Chest Chest inspection: Present: normal inspection, symmetric chest wall rise - Respiratory Respiratory exam: Present: normal lung sounds bilaterally. Absent: respiratory distress, wheezes - Cardiovascular Cardiovascular exam: Present: regular rate, normal rhythm, tachycardia - Abdominal Exam Abdominal exam: Present: soft, Non-Tender - Extremities Exam Extremities exam: Present: full ROM, normal capillary refill - Expanded Lower Extremity Exam Hip/Pelvis exam: Present: full ROM. Absent: tenderness Upper leg exam: Present: full ROM. Absent: tenderness Knee exam: Present: full ROM, tenderness (left), abrasion (left), knee extension intact. Absent: erythema Lower leg exam: Present: tenderness (left), swelling (left), abrasion (left), Achilles tendon intact. Absent: Homans' sign Ankle exam: Absent: full ROM (active passive ROM limited due to pain, limited dorsiflexion), tenderness, swelling Foot/toe exam: Present: swelling, ecchymosis, erythema, tenderness at base of 5th metatarsal 1 - erythema,tenderness, eccymosis Neurovascular/Tendon exam: Present: normal capillary refill. Absent: pulse deficit, motor deficit, sensory deficit Gait: observed and limited by pain - Back Exam Back exam: Present: full ROM. Absent: tenderness - Neurological Exam Neurological exam: Present: alert, CN II-XII intact. Absent: motor sensory deficit - Psychiatric Psychiatric exam: Present: normal affect, normal mood. Absent: depressed, suicidal ideation - Skin Skin exam: Present: warm, dry, intact, normal color Course Course Narrative: Patient is a 36-year-old female smoker that arrives by squad with concern for injury to her left lower extremity. She states initially she had woken yesterday morning with swelling and pain to her calf as well as numbness over her foot. She states that this has difficulty for her to walk and consequentially she has had mechanical falls multiple times today. She describes swelling over her calf, redness of her foot, and difficulty dorsiflexing and moving her toes. Her pain is accompanied with nausea. Pain is worse with palpation, weight bearing and movement of her ankle. She does mention that she took her friend's Percocet 10 which has helped the pain this morning. She takes oral contraceptives. Other than the fall she denies any known injury, or recent illness. She denies any prolonged downtime, injury to her head, cervical or back pain, h/o of DVT, bleeding disorders. Pt denies SI/ HI and any psychotic or manic symptoms. On examination, she does complain of decreased dorsal flexion due to pain. Good distal pulses. Pt has good sensation to light touch and pin prick equally bilaterall. She displays difficulty wiggling her toes. Babinski test decreased on left. Calzada test negative. Tenderness over base of fifth metatarsal. Dorsal aspect of left foot erythemic, warm, mild ecchymosis. Left calf notably more swollen. Normal mood and affect; no evidence of disorganized thoughts or confusion . Imaging ordered. Analgesics ordered. Anti-medics ordered. - Reevaluation(s) Reevaluation #1: Patient's x-rays show nondisplaced proximal fifth metatarsal fracture of the left foot. X-rays of knee, and ankle are unremarkable, and her entire left today was able to be viewed between the knee x-ray and ankle x-ray. Etoh, uric acid, and chemistry still pending, per nursing due to clotting. She did have an elevated white blood cell count, and ESR. Management of her calfs left 39, left 33 cm. She has good dorsalis pedis pulse. Pt again denies h/o of IVDA. She continues to have pain from her distal knee to the dorsal aspect of her foot. She has not been vomitting. She is no longer tachycardic. Patient was discussed with Dr. Francis, who also had face time with patient, who suggested adding CK, and venous duplex ultrasound. Pt does meet high risk criteria per Wells Criteria. He also mentions less concerning for infectious causes. Time: 05:39 Reevaluation #2: Per technical administrator, no DVT in LLE but possible Bakers cyst in left knee. Saline lock and IV fluids ordered. Chemistry labs still pending. Time: 06:23 Reevaluation #3: Compartment pressures were performed by Dr. Tijerina, who mention they are mildly elevated. He had discussed patient with Dr. Ledesma, who agreed for fasciotomy. Dr. Tijerina advised admission to hospitalist for surgery today for fasciotomy. We will make patient nothing by mouth. Hospitalist paged. Time: 07:07 Additional Reevaluation(s): @07:25 Patient discussed with and accepted by hospitalist Dr. Kelly, who also requested urine tox screen. Dr. Valle also called me and requested dedicated tib fib xr. test pending as well. - Consultations Consultation #1: Orthopedics was paged, and I discussed patient with Dr. Tijerina, who mentioned compartment syndrome less likely without a traumatic injury, however he did agree to see the patient here in the emergency department and requested a [place] monitor. Time: 06:23 Vital Signs Temperature 98.0 F 01/28/17 02:19 Pulse Rate 120 01/28/17 02:19 Respiratory Rate 18 01/28/17 02:19 Blood Pressure 129/103 01/28/17 02:19 O2 Sat by Pulse Oximetry 98 01/28/17 02:19 Temperature 98.0 F 01/28/17 02:19 Pulse Rate 99 01/28/17 06:59 Respiratory Rate 16 01/28/17 06:59 Blood Pressure 122/82 01/28/17 06:59 O2 Sat by Pulse Oximetry 98 01/28/17 06:59 Oxygen Delivery Oxygen Delivery Room Air Extremity Injury, Lower - MDM Narrative Medical decision making narrative: 01/28/17 06:45 - [facility] Num[facility] [id number] : 1980 Patient Age: 36 Unilateral lower extremity venous duplex exam completed. Negative DVT/SVT on left LE. Initialized on 01/28/17 06:45 - END OF NOTE Ankle X-Ray 01/28/17 02:50 IMPRESSION: Acute nondisplaced fracture of the proximal left 5th metatarsal. D/ / Bill Mercado MD / Bill Mercado MD Interpreting Provider: Bill Mercado MD Foot X-Ray 01/28/17 02:50 IMPRESSION: Acute nondisplaced fracture of the proximal left 5th metatarsal. D/ / Bill Mercado MD / Bill Mercado MD Interpreting Provider: Bill Mercado MD Knee X-Ray 01/28/17 02:50 IMPRESSION: No evidence of an acute injury. D/ / Bill Mercado MD / Bill Mercado MD Interpreting Provider: Bill Mercado MD Wells' Criteria for DVT from [email or web address] on 01/28/2017 All calculations should be rechecked by clinician prior to use RESULT SUMMARY: 3 points High risk group for DVT. Likely according to Wells DVT studies. INPUTS: Active cancer > 0 = No Bedridden recently >3 days or major surgery within four weeks > 0 = No Calf swelling >3 cm compared to the other leg > 1 = Yes Collateral (nonvaricose) superficial veins present > 0 = No Entire leg swollen > 0 = No Localized tenderness along the deep venous system > 1 = Yes Pitting edema, confined to symptomatic leg > 0 = No Paralysis, paresis, or recent plaster immobilization of the lower extremity > 1 = Yes Previously documented DVT > 0 = No Alternative diagnosis to DVT as likely or more likely > 0 = No All Lab Results (24 Hours) 01/28/17 01/28/17 01/28/17 Range/Units 04:47 04:47 04:47 WBC 20.6 H (4.3-11.1) K/mcL RBC 4.85 (3.82-4.97) M/mcL Hgb 14.6 (11.5-15.4) g/dL Hct 42.2 (35.3-44.9) % MCV 87.0 (83.0-100.0) fL MCH 30.1 (28.0-33.3) pg MCHC 34.6 (31.6-35.5) g/dL RDW 13.2 (11.5-14.5) % Plt Count 443 H (140-400) K/mcL MPV 9.5 (9.4-12.4) fL Immature Gran % 0.6 (0-4) % Seg Neutrophils % 76.4 % Lymphocytes % 13.9 % Monocytes % 8.5 % Eosinophils % 0.2 % Basophils % 0.4 % Neutrophils # 15.7 H (1.6-8.9) K/mcL Lymphocytes # 2.9 (0.6-4.6) K/mcL Monocytes # 1.7 H (0.0-1.3) K/mcL Eosinophils # 0.0 (0.0-0.6) K/mcL Basophils # 0.1 (0.0-0.2) K/mcL ESR 39 H (0-15) mm/hr Sodium (136-145) mEq/L Potassium (3.5-4.5) mEq/L Chloride (98-109) mEq/L Carbon Dioxide (19-29) mEq/L BUN (7-20) mg/dL Creatinine (0.57-1.11) mg/dL Est GFR ( Amer) (> 60) Est GFR (Non-Af Amer) (> 60) BUN/Creatinine Ratio (6-26) Glucose (70-99) mg/dL Calculated Osmolality (280-300) Uric Acid (2.6-6.0) mg/dL Calcium (8.6-10.8) mg/dL Creatine Kinase (29-168) Units/L C-Reactive Protein (Less than 5) mg/L Ethyl Alcohol (0-10) mg/dL Specimen Rejected Hemolyzed 01/28/17 01/28/17 Range/Units 04:47 06:02 WBC (4.3-11.1) K/mcL RBC (3.82-4.97) M/mcL Hgb (11.5-15.4) g/dL Hct (35.3-44.9) % MCV (83.0-100.0) fL MCH (28.0-33.3) pg MCHC (31.6-35.5) g/dL RDW (11.5-14.5) % Plt Count (140-400) K/mcL MPV (9.4-12.4) fL Immature Gran % (0-4) % Seg Neutrophils % % Lymphocytes % % Monocytes % % Eosinophils % % Basophils % % Neutrophils # (1.6-8.9) K/mcL Lymphocytes # (0.6-4.6) K/mcL Monocytes # (0.0-1.3) K/mcL Eosinophils # (0.0-0.6) K/mcL Basophils # (0.0-0.2) K/mcL ESR (0-15) mm/hr Sodium 130 L (136-145) mEq/L Potassium 4.3 (3.5-4.5) mEq/L Chloride 99 (98-109) mEq/L Carbon Dioxide 19 (19-29) mEq/L BUN 29 H (7-20) mg/dL Creatinine 2.26 H (0.57-1.11) mg/dL Est GFR ( Amer) 30 L (> 60) Est GFR (Non-Af Amer) 24 L (> 60) BUN/Creatinine Ratio 13 (6-26) Glucose 120 H (70-99) mg/dL Calculated Osmolality 277 L (280-300) Uric Acid 8.5 H (2.6-6.0) mg/dL Calcium 9.3 (8.6-10.8) mg/dL Creatine Kinase > 48053 H (29-168) Units/L C-Reactive Protein 250 H (Less than 5) mg/L Ethyl Alcohol < 10 (0-10) mg/dL Specimen Rejected - Lab Data Lab results reviewed: Yes I reviewed the patient's lab results. Result diagrams: 01/28/17 04:47 01/28/17 06:02 Lab Results 01/28/17 01/28/17 01/28/17 Range/Units 04:47 04:47 04:47 WBC 20.6 H (4.3-11.1) K/mcL RBC 4.85 (3.82-4.97) M/mcL Hgb 14.6 (11.5-15.4) g/dL Hct 42.2 (35.3-44.9) % MCV 87.0 (83.0-100.0) fL MCH 30.1 (28.0-33.3) pg MCHC 34.6 (31.6-35.5) g/dL RDW 13.2 (11.5-14.5) % Plt Count 443 H (140-400) K/mcL MPV 9.5 (9.4-12.4) fL Immature Gran % 0.6 (0-4) % Seg Neutrophils % 76.4 % Lymphocytes % 13.9 % Monocytes % 8.5 % Eosinophils % 0.2 % Basophils % 0.4 % Neutrophils # 15.7 H (1.6-8.9) K/mcL Lymphocytes # 2.9 (0.6-4.6) K/mcL Monocytes # 1.7 H (0.0-1.3) K/mcL Eosinophils # 0.0 (0.0-0.6) K/mcL Basophils # 0.1 (0.0-0.2) K/mcL ESR 39 H (0-15) mm/hr Sodium (136-145) mEq/L Potassium (3.5-4.5) mEq/L Chloride (98-109) mEq/L Carbon Dioxide (19-29) mEq/L BUN (7-20) mg/dL Creatinine (0.57-1.11) mg/dL Est GFR ( Amer) (> 60) Est GFR (Non-Af Amer) (> 60) BUN/Creatinine Ratio (6-26) Glucose (70-99) mg/dL Calculated Osmolality (280-300) Uric Acid (2.6-6.0) mg/dL Calcium (8.6-10.8) mg/dL Creatine Kinase (29-168) Units/L C-Reactive Protein (Less than 5) mg/L Ethyl Alcohol (0-10) mg/dL Specimen Rejected Hemolyzed 01/28/17 01/28/17 Range/Units 04:47 06:02 WBC (4.3-11.1) K/mcL RBC (3.82-4.97) M/mcL Hgb (11.5-15.4) g/dL Hct (35.3-44.9) % MCV (83.0-100.0) fL MCH (28.0-33.3) pg MCHC (31.6-35.5) g/dL RDW (11.5-14.5) % Plt Count (140-400) K/mcL MPV (9.4-12.4) fL Immature Gran % (0-4) % Seg Neutrophils % % Lymphocytes % % Monocytes % % Eosinophils % % Basophils % % Neutrophils # (1.6-8.9) K/mcL Lymphocytes # (0.6-4.6) K/mcL Monocytes # (0.0-1.3) K/mcL Eosinophils # (0.0-0.6) K/mcL Basophils # (0.0-0.2) K/mcL ESR (0-15) mm/hr Sodium 130 L (136-145) mEq/L Potassium 4.3 (3.5-4.5) mEq/L Chloride 99 (98-109) mEq/L Carbon Dioxide 19 (19-29) mEq/L BUN 29 H (7-20) mg/dL Creatinine 2.26 H (0.57-1.11) mg/dL Est GFR ( Amer) 30 L (> 60) Est GFR (Non-Af Amer) 24 L (> 60) BUN/Creatinine Ratio 13 (6-26) Glucose 120 H (70-99) mg/dL Calculated Osmolality 277 L (280-300) Uric Acid 8.5 H (2.6-6.0) mg/dL Calcium 9.3 (8.6-10.8) mg/dL Creatine Kinase > 54514 H (29-168) Units/L C-Reactive Protein 250 H (Less than 5) mg/L Ethyl Alcohol < 10 (0-10) mg/dL Specimen Rejected - Radiology Data Radiology results reviewed: Yes I reviewed the patient's radiology results.
[2017-01-28] MEDS ORDERED: cephALEXin 250 MG CAPSULE PO ONE (04:53)
[2017-01-28] MEDS ORDERED: *HR* HYDROcodone/Acet 5/325 mg TABLET PO ONE (04:53)
[2017-01-28 04:54] LABS: Basophils # 0.1 K/mcL (0.0-0.2); Basophils % 0.4 %; Eosinophils % 0.2 %; Hematocrit 42.2 % (35.3-44.9); Hemoglobin 14.6 g/dL (11.5-15.4); Immature Granulocytes % 0.6 % (0-4); Lymphocytes # 2.9 K/mcL (0.6-4.6); Lymphocytes % 13.9 %; Mean Corpuscular HGB Conc 34.6 g/dL (31.6-35.5); Mean Corpuscular Hemoglobin 30.1 pg (28.0-33.3); Mean Platelet Volume 9.5 fL (9.4-12.4); Monocytes # 1.7 K/mcL (0.0-1.3); Monocytes % 8.5 %; Neutrophils # 15.7 K/mcL (1.6-8.9); Platelet Count 443 K/mcL (140-400); Red Blood Count 4.85 M/mcL (3.82-4.97); Red Cell Distribution Width 13.2 % (11.5-14.5); Segmented Neutrophils % 76.4 %
[2017-01-28 05:33] LABS: Ethanol < 10 mg/dL (0-10)
[2017-01-28] MEDS ORDERED: *HR* Enoxaparin 60 MG/0.6 ML SYRINGE SQ STA (05:34)
[2017-01-28 05:51] LABS: C-Reactive Protein 250 mg/L (Less than 5)
[2017-01-28 05:58] LABS: Creatine Kinase > 42670 Units/L (29-168)
--- NOTE | 2017-01-28 06:01 | Emergency Department Note ---
Attestation Statement - Attestation Attestation: I, Jovany Francis MD, personally evaluated this patient and discussed their management with the midlevel provicer, PAC/HOGSHEAD DUMPER. I reviewed the midlevel provider 's note and agree with the documented findings, medical decision making, and plan of care. 36-year-old female presents to the emergency department with a complaint that she awoke from sleep yesterday morning with pain and swelling of the left lower leg below the knee. She also complains of circumferential numbness from just below the knee down to the toes. She has a foot drop and unable to lift her foot. She complains of difficulty walking due to the numbness and foot drop that she fell multiple times yesterday because of this. She denies any fall or injury prior to awakening yesterday morning with the symptoms. No pain or swelling above the knee. No numbness or tingling about the knee. No prior history of similar episodes. No fever. No cough or chest pain or shortness of breath. She denies IV drug use. She is on control. No history of blood clots. Patient feels the numbness and weakness has been constant since she awoke yesterday morning but thinks the swelling may have gotten a little worse. On examination patient is a well-developed well-nourished female in no acute distress. She is alert and oriented 3. There is no cyanosis or diaphoresis. Breath sounds are clear and equal bilaterally. Heart regular rate and rhythm. Abdomen is soft and nontender with normal bowel sounds. Patient has multiple bruises to both knees which appear to be of varying age. There is a large crusted abrasion over the anterolateral aspect of the left knee. There is marked swelling of the left calf with some mild erythema but it is not hot to touch. The left calf measures 6 cm larger than the right calf. Large area of ecchymosis over the lateral left mid foot which appears to be several days old. There is a strong dorsalis pedis pulse with normal capillary refill distally. The foot is not cool or dusky to touch but also is not hot to touch. There is decreased sensation diffusely in the left lower leg. Patient unable to dorsiflex the left foot. There is only slight movement of the toes. X-rays of the left knee, left ankle, and left foot revealed a nondisplaced fracture through the base of the left fifth metatarsal but otherwise no acute abnormality. Labs reviewed. WBC 20.6. ESR 39. The orthopedist on-call, Dr. Valle, was consulted and came and evaluated the patient in the emergency department. She did have some elevated compartment pressures and will be admitted to the hospitalist for fasciotomy by Dr. Ledesma. Critical Care Time Critical Care Time: Yes Total Critical Care Time: 35 Attestation: Critical care performed: Time is exclusive of separately billable procedures. Time includes: direct patient care, patient reassessment, coordination of patient care, interpretation of data (laboratory data, radiology data, and respiratory data), review of patient's medical records, medical consultation and documentation of patient care. Procedures included in critical care time: Procedures excluded from critical care time:
[2017-01-28 06:21] LABS: Calcium 9.3 mg/dL (8.6-10.8); Uric Acid 8.5 mg/dL (2.6-6.0)
[2017-01-28 06:26] LABS: Potassium 4.3 mEq/L (3.5-4.5)
[2017-01-28] MEDS: 0.9 % Sodium Chloride 1,000 ML IVC SCH ×2 (06:55→11:36)
[2017-01-28] MEDS ORDERED: *HR* OxyCODONE/APAP 5/325 TABLET PO ONE (06:55)
--- NOTE | 2017-01-28 07:17 | Anesthesia Evaluation PreOp ---
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: Seizures (secondary to medication) Other Medical History: Renal (kidney stones), GERD (hiatal hernia) Anesthesia History: No Prior Anesthetic Complications, Past Anesthesia Test: Negative (01/28/2017) Alcohol Use: none Drug use: marijuana Medications and Allergies Gabapentin [Neurontin] 400 mg PO TID 12/02/15 [History] Lipase/Protease/Amylase [[place]ula [place] 24,000 Units Capsule] 2 cap PO TIDWM 12/02/15 [History] Norgestimate-Ethinyl Estradiol [Sprintec 28 Day Tablet] 1 tab PO DAILY 12/02/15 [History] SUMAtriptan Succinate [Imitrex] 100 mg PO DAILY PRN MDD 200 mg 12/02/15 [History ] Tizanidine HCl [Zanaflex] 4 mg PO Q8H PRN 12/02/15 [History] Ranitidine HCl [Heartburn Relief] 150 mg PO HS 11/06/16 [History] Buspirone HCl [Buspar] 30 mg PO TID #90 11/13/16 [Rx] Trazodone HCl 300 mg PO HS #60 11/13/16 [Rx] diazePAM [Valium] 10 mg PO BID #60 11/13/16 [Rx] Dicyclomine [Bentyl] 10 mg PO QID PRN #20 capsule 12/13/16 [Rx] Ondansetron ODT [Zofran ODT] 4 mg SL Q6HR PRN #15 tab.rapdis 12/13/16 [Rx] Amitriptyline [Elavil] 25 mg PO HS 01/06/17 [History] Cholecalciferol (Vitamin D3) [Vitamin D3] 10,000 unit PO QWEEK 01/06/17 [History ] Lipase/Protease/Amylase [Ursula [place] 24,000 Units Capsule] 1 each PO AD 01/06/17 [ History] Omeprazole [PriLOSEC] 40 mg PO DAILY 01/06/17 [History] Cefdinir [Omnicef] 300 mg PO BID #14 capsule 01/09/17 [Rx] Duloxetine HCl [Cymbalta] 60 mg PO BID #60 capsule. 01/09/17 [Rx] HYDROcodone/Acet 5/325 mg [[place] 5-325 mg] 1 tab PO Q4HR PRN #14 tablet [Rx] Promethazine [Phenergan] 25 mg PO Q6HR PRN #20 tablet 01/09/17 [Rx] Quetiapine Fumarate [Seroquel] 100 mg PO 0900,1300,1700 #90 tab 01/09/17 [Rx] Quetiapine Fumarate [Seroquel] 200 mg PO HS #30 tablet 01/09/17 [Rx] lamoTRIgine [Lamictal] 200 mg PO BID #60 tablet 01/09/17 [Rx] metroNIDAZOLE [Flagyl] 500 mg PO TID #21 tablet 01/09/17 [Rx] 3 Allergy/AdvReac Type Severity Reaction Status Date / Time metoclopramide [From Reglan] Allergy Seizure Verified 09/17/16 00:35 prochlorperazine Allergy Difficulty Verified 09/17/16 00:35 [From Compazine] Breathing haloperidol AdvReac See Verified 09/17/16 00:35 Comments - Meds/Allergy Pre-op Review Medications Reviewed: Yes Allergies Reviewed: Yes Beta Blockers on Current Med List: No Anesthesia Results - Labs 01/28/17 04:47 01/28/17 06:02 - Imaging EKG: report reviewed (01/06/2017 Sinus bradycardia, Nonspecific ST-T changes 10/24 SR, NSST abnormality) Anesthesia Exam Vital Signs/O2 Sat, Most Current Temp Pulse Resp BP Pulse Ox 98.0 F 99 16 122/82 98 01/28/17 02:19 01/28/17 06:59 01/28/17 06:59 01/28/17 06:59 01/28/17 06:59 Height: 5'3'' Weight: 140 lbs NPO (# of Hours): 7 Pain Scale: 7 Pain Scale Used: Numeric (1 - 10) - HEENT Pupil (Motor): EOMI Mallampati: II Teeth: Edentulous Oral Opening: Greater than 3 - DELINQUENCY COUNSELOR LOC: Oriented DELINQUENCY COUNSELOR Motor: Normal RUE, Normal LUE, Normal RLE, Normal Face, Deficit LLE DELINQUENCY COUNSELOR Sensory: Normal: RUE, LUE, RLE, Face, Deficit: LLE - Cardiac Rhythm: Regular Murmur: None - Pulmonary Breath Sounds: bilateral Clear Respiratory Effort: Symmetrical Anesthesia Assess/Plan ASA Score: 2, E Modified Adeline Scale for Level of Consciousness: Cooperative, oriented, and tranquil Anesthetic Plan: General Monitoring Plan: Standard Monitors Recovery Plan: PACU
[2017-01-28] MEDS ORDERED: *HR* FentaNYL (PF) 100 MCG/2 ML VIAL ONE (07:19)
[2017-01-28] MEDS ORDERED: *HR* Midazolam HCl 2 MG/2 ML VIAL ONE (07:19)
[2017-01-28] MEDS ORDERED: *HR* Propofol 200 MG/20 ML VIAL IVP ONE (07:20)
[2017-01-28] MEDS ORDERED: Lidocaine -MPF 4% 5 ML AMPUL ONE (07:26)
--- NOTE | 2017-01-28 07:30 | Orthopedic Consult Note ---
Date of Encounter: 01/28/17 Time of Encounter: 07:28 Assessment and Plan (1) Compartment syndrome of left lower extremity Current Visit: Yes Status: Acute I did discuss the diagnosis in detail with the patient. She does have significant left leg swelling and pain concerning for compartment syndrome. I did confirm this with compartment measurements including a superficial posterior compartment of 47 mmHg, a deep posterior compartment 24 mmHg, and anterior compartment 39 mmHg, and the lateral compartment 30 mmHg. My recommendation was for emergent 4 compartment fasciotomy of the left leg. The risks discussed included but were not limited to stiffness, bleeding, infection , blood clots, damage to neurovascular structures, tendons, ligaments, and bone. Also discussed was the risk of continued symptoms and possible need for further procedures. I did discuss the anesthesia risks including stroke, heart attack, and . I did discuss the reasonable, for stable postoperative course which may include multiple procedures for wound closure. I did express this to the patient in simple terms and she did wish to proceed and consent was obtained. We will proceed emergently to the operating room. Regarding the left fifth metatarsal fracture my recommendation will be for nonoperative management. Qualifiers: Qualified Code(s): T79.A22A - Traumatic compartment syndrome of left lower extremity, initial encounter History of Present Illness HPI: Ms. Calle is a 36 year old female who presented to the emergency department with complaints of left leg pain and inability to move her ankle and toes. She said that she woke up yesterday with the inability to move the left foot associated with significant pain and without any known injuries. She denies any IV drug use or intoxication. Throughout the day she did try and ambulate and had multiple stumbles and mechanical falls. She presented to the emergency department earlier this morning for worsening of her symptoms. She has an elevated creatine kinase consistent with rhabdomyolysis as well as a foot drop, a swollen leg and concern for compartment syndrome. An ultrasound was performed which was negative. I was asked to evaluate for compartment syndrome. My evaluation the patient complains of significant pain localized to the left leg radiating down into the foot associated with significant numbness on the dorsal aspect as well as plantar aspect of the foot with the dorsal aspect being more significantly involved. She denies any other pain elsewhere and no other associated signs or symptoms. She does not report any relieving factors. Movement makes the pain worse. No other complaints. Past Med Surg Social Fam HX - Past Medical History Medical history: arthritis, GERD, kidney stones, migraine, seizures, other Psychiatric history: anxiety, bipolar, depression, previous psychiatric hospitalization - Past Surgical History Surgical History: cholecystectomy, other - Social History Smoking Status: Current every day smoker Smokeless Tobacco Status: No Alcohol use: none Drug use: marijuana - Family History Mother Adopted: No Family Member Ethnicity: Non- Living Status: Hx Family Cardiac Disorders: No Hx Family Respiratory Disorders: No Hx Family Cancer: Yes (Breast) Hx Family GI Disorders: No Hx Family Endocrine Disorder: No Hx Family Neuromuscular Disorders: No Hx Family Neurologic Disorders: No Hx Family HEENT Disorders: No Hx Family Autoimmune Disorders: No Medications and Allergies Gabapentin [Neurontin] 400 mg PO TID 12/02/15 [History] Lipase/Protease/Amylase [Creon Dr 24,000 Units Capsule] 2 cap PO TIDWM 12/02/15 [History] Norgestimate-Ethinyl Estradiol [Sprintec 28 Day Tablet] 1 tab PO DAILY 12/02/15 [History] SUMAtriptan Succinate [Imitrex] 100 mg PO DAILY PRN MDD 200 mg 12/02/15 [History ] Tizanidine HCl [Zanaflex] 4 mg PO Q8H PRN 12/02/15 [History] Ranitidine HCl [Heartburn Relief] 150 mg PO HS 11/06/16 [History] Buspirone HCl [Buspar] 30 mg PO TID #90 11/13/16 [Rx] Trazodone HCl 300 mg PO HS #60 11/13/16 [Rx] diazePAM [Valium] 10 mg PO BID #60 11/13/16 [Rx] Dicyclomine [Bentyl] 10 mg PO QID PRN #20 capsule 12/13/16 [Rx] Ondansetron ODT [Zofran ODT] 4 mg SL Q6HR PRN #15 tab.rapdis 12/13/16 [Rx] Amitriptyline [Elavil] 25 mg PO HS 01/06/17 [History] Cholecalciferol (Vitamin D3) [Vitamin D3] 10,000 unit PO QWEEK 01/06/17 [History ] Lipase/Protease/Amylase [Creon Dr 24,000 Units Capsule] 1 each PO AD 01/06/17 [ History] Omeprazole [PriLOSEC] 40 mg PO DAILY 01/06/17 [History] Cefdinir [Omnicef] 300 mg PO BID #14 capsule 01/09/17 [Rx] Duloxetine HCl [Cymbalta] 60 mg PO BID #60 capsule. 01/09/17 [Rx] HYDROcodone/Acet 5/325 mg [Dumont 5-325 mg] 1 tab PO Q4HR PRN #14 tablet [Rx] Promethazine [Phenergan] 25 mg PO Q6HR PRN #20 tablet 01/09/17 [Rx] Quetiapine Fumarate [Seroquel] 100 mg PO 0900,1300,1700 #90 tab 01/09/17 [Rx] Quetiapine Fumarate [Seroquel] 200 mg PO HS #30 tablet 01/09/17 [Rx] lamoTRIgine [Lamictal] 200 mg PO BID #60 tablet 01/09/17 [Rx] metroNIDAZOLE [Flagyl] 500 mg PO TID #21 tablet 01/09/17 [Rx] 3 Allergy/AdvReac Type Severity Reaction Status Date / Time metoclopramide [From Reglan] Allergy Seizure Verified 09/17/16 00:35 prochlorperazine Allergy Difficulty Verified 09/17/16 00:35 [From Compazine] Breathing haloperidol AdvReac See Verified 09/17/16 00:35 Comments All Systems Reviewed: A 10-system review of systems was performed and is negative for pertinent findings except as documented above in the HPI. Physical Exam - Constitutional Vitals: Temp Pulse Resp BP Pulse Ox 98.0 F 99 16 122/82 98 01/28/17 02:19 01/28/17 06:59 01/28/17 06:59 01/28/17 06:59 01/28/17 06:59 Constitutional -Vitals reviewed -The patient is well developed and well nourished. -Mood is pleasant. -The patient is well groomed. Psychiatric -The patient is fully alert and oriented x 3. Respiratory: -Respiratory effort normal Abdomen: -Soft abdomen -Non tender -Non distended: Left upper extremity: -No deformities. The overlying skin is intact. No obvious signs of acute trauma. -No tenderness to palpation throughout. -No significant pain with passive motion of the shoulder, elbow, wrist, and fingers within the limits of the bed. -Able to make an "OK" sign, cross the index and long fingers, and extend the thumb. -Sensation grossly intact to light touch throughout the median, radial, and ulnar distributions. -Radial pulse is present; Fingers have good capillary refill. Right upper extremity: -No deformities. The overlying skin is intact. No obvious signs of acute trauma. -No tenderness to palpation throughout. -No significant pain with passive motion of the shoulder, elbow, wrist, and fingers within the limits of the bed. -Able to make an "OK" sign, cross the index and long fingers, and extend the thumb. -Sensation grossly intact to light touch throughout the median, radial, and ulnar distributions. -Radial pulse is present; Fingers have good capillary refill. Left lower extremity: -Significant swelling over the tib-fib region with tightness of all 4 compartments -Diffuse tenderness to palpation throughout -No tenderness in the thigh region and the thigh compartments are soft and compressible. -She is able to flex the hip flexed the knee and extend the knee without significant tissue -She does demonstrate weak flexion of the ankle and toes but no ankle dorsiflexion or toe extension or eversion ability of the foot -Altered sensation about the dorsal and plantar foot with significantly decreased sensation along the dorsal foot -The toes are warm and well perfused with a 2+ dorsalis pedis pulse Right lower extremity: -No deformities. The overlying skin is intact. No obvious signs of acute trauma. -No tenderness to palpation throughout. -No pain with passive motion of the hip, knee, ankle, and toes within the limits of the bed. -No pain with axial loading of the thigh. -Able to dorsiflex and plantarflex the ankle and toes. -Sensation is grossly intact to light touch throughout the sural, saphenous, superficial peroneal, and deep peroneal distributions. -Toes have good capillary refill. Diagnostic Imaging: I did personally review and interpret x-rays of the left ankle and knee do not show any fractures or dislocations. X-rays of the foot do show a very proximal nondisplaced fifth metatarsal fracture Results - Labs Result Diagrams: 01/28/17 04:47 01/28/17 06:02 Labs: Abnormal lab results WBC 20.6 K/mcL (4.3-11.1) H 01/28/17 04:47 Plt Count 443 K/mcL (140-400) H 01/28/17 04:47 Neutrophils # 15.7 K/mcL (1.6-8.9) H 01/28/17 04:47 Monocytes # 1.7 K/mcL (0.0-1.3) H 01/28/17 04:47 ESR 39 mm/hr (0-15) H 01/28/17 04:47 Sodium 130 mEq/L (136-145) L 01/28/17 06:02 BUN 29 mg/dL (7-20) H 01/28/17 06:02 Creatinine 2.26 mg/dL (0.57-1.11) H 01/28/17 06:02 Est GFR ( Amer) 30 (> 60) L 01/28/17 06:02 Est GFR (Non-Af Amer) 24 (> 60) L 01/28/17 06:02 Glucose 120 mg/dL (70-99) H 01/28/17 06:02 Calculated Osmolality 277 (280-300) L 01/28/17 06:02 Uric Acid 8.5 mg/dL (2.6-6.0) H 01/28/17 06:02 Creatine Kinase > 16210 Units/L (29-168) H 01/28/17 04:47 C-Reactive Protein 250 mg/L (Less than 5) H 01/28/17 04:47 H & H 01/28/17 Range/Units 04:47 Hgb 14.6 (11.5-15.4) g/dL Hct 42.2 (35.3-44.9) % All other labs normal. Consult Discharge Plan - Plan Referrals: Alka Castanon DO [Primary Care Provider] -
[2017-01-28 07:53] LABS: Amphetamine Screen,Urine Negative ng/mL (Cutoff=1000); Barbiturate Screen,Urine Negative ng/mL (Cutoff=200); Benzodiazepines Screen,Urine Positive ng/mL (Cutoff=200); Cannabinoid Screen,Urine Positive ng/mL (Cutoff = 50); Cocaine Screen,Urine Negative ng/mL (Cutoff= 300); Opiate Screen,Urine Positive ng/mL (Cutoff=300); Phencyclidine Screen,Urine Negative ng/mL (Cutoff=25)
[2017-01-28 08:01] LABS: Bilirubin,Urine Negative (Negative); Blood,Urine Large (Negative); Clarity,Urine Slightly Hazy (Clear); Color,Urine Yellow (Yellow); Glucose,Urine (UA) Normal (Normal); Ketones,Urine Negative (Negative); PH,Urine 5.5 pH Units (5.0-8.0); Specific Gravity,Urine 1.016 (1.010-1.025)
[2017-01-28 08:02] LABS: Leukocyte Esterase,Urine Moderate (Negative); Nitrite,Urine Negative (Negative); Protein,Urine 100 mg/dL (Neg-Trace); Urobilinogen,Urine Normal (Normal)
[2017-01-28 08:03] LABS: Squamous Epithelial Cell,Urine Many per lpf (None-Few)
[2017-01-28 08:04] LABS: Mucus,Urine Few (Few)
[2017-01-28 08:05] LABS: Bacteria,Urine Many per hpf (None-Few); RBC,Urine 0-3 per hpf (0-3); WBC,Urine 15-30 per hpf (0-3)
[2017-01-28] MEDS ORDERED: EPHEDrine 50 MG/ML VIAL ONE (08:37)
[2017-01-28] MEDS ORDERED: *HR* HYDROmorphone 2 MG/ML SYRINGE ONE (09:31)
[2017-01-28] MEDS ORDERED: Ondansetron 4 MG/2 ML VIAL IVP ONE (09:34)
[2017-01-28] MEDS ORDERED: *HR* HYDROmorphone (PF) 1 MG/ML SYRINGE IVP PRN (09:34)
--- NOTE | 2017-01-28 09:35 | Orthopedic Operative Note ---
Date of procedure: 01/28/17 Procedure: OPERATIVE REPORT DATE OF PROCEDURE: 01/28/2017 SURGEON: Lm Valle MD TRUST OFFICER(S): There were no assistants PREOPERATIVE DIAGNOSIS: Left leg compartment syndrome POSTOPERATIVE DIAGNOSIS: Left leg compartment syndrome PROCEDURE: Left leg 4 compartment fasciotomy ANESTHESIA: General anesthesia PREOPERATIVE ANTIBIOTICS: 2 g of Ancef ESTIMATED BLOOD LOSS: 2 milliliters TOURNIQUET TIME: 27 minutes at 300 mmHg SPECIMENS: There were no specimens IMPLANTS: There were no implants PREOPERATIVE NOTE AND INDICATIONS: This patient is a 36-year-old female who is seen in the emergency department after waking up yesterday morning with numbness to the left leg and inability to move the toes and ankle. She was found to have compartment syndrome when she came to the emergency department this morning and was taken up emergently for left lower extremity 4 compartment fasciotomy. The surgical plan was discussed with the patient. The risks, benefits, alternatives, and potential complications of this procedure were discussed with the patient including injury to veins, arteries, nerves, tendons, ligaments, and bone. Also discussed were the risks of infection, bleeding, pain, blood clots, the possible need for a blood transfusion, the possible need for further procedures, heart attack, stroke, and . Does not risks include the need for skin grafting or multiple procedures to try and close the wounds. All of this was explained in simple terms, and the patient verbalized understanding and wished to proceed. Consent was given to proceed with surgery. PROCEDURE: The patient was seen in the preoperative holding area where the identify and the consent were confirmed. The left leg was marked. Final questions were answered. The patient was brought back to the operating room and placed supine on the operating room table. A huddle was performed with the patient and all vital surgical team members confirming patient identity, the correct procedure, and the correct operative site. General anesthesia was administered. The left lower extremity was prepped and draped in the usual sterile fashion. A surgical time out was performed immediately preceding the incision with all personnel in the operating room to confirm patient identity, the correct operative site and extremity, correct radiographic studies, availability of appropriate surgical equipment, and agreement on the planned procedure. The tourniquet was inflated after elevation of the leg. A 15 cm lateral incision was made between the anterior ridge of the tibia and the fibula. Dissection proceeded through the subcutaneous tissue down to the fascia. The intermuscular septum was identified and a small transverse danie made in it. Using a curved scissor the anterior compartment was released completely proximally and distally with billowing out of the muscular contents. The muscle appeared very healthy and without injury. Similarly using a curved scissor the lateral compartment was released completely proximally and distally with billowing out of the muscular contents and similarly the muscle appeared very healthy without injury. Attention was directed medially where a 15 cm incision was made 2 cm posterior to the posterior border of the tibia. Dissection proceeded through the subcutaneous tissue and the saphenous vein and nerve were identified and retracted anteriorly. The fascia was encountered and the fascia over the superficial compartment was opened completely proximally and distally and within the gastroc there was some darkening of the muscle with a minimal amount of intramuscular hematoma. Using Bovie electrocautery the muscle was found to be quite contractile. The deep posterior compartment was released next proximally and distally and the muscular contents appeared quite healthy without any injury. The wounds were copiously irrigated and the medial wound was easily closed with no tension using 3-0 Vicryl sutures and tree. The lateral wound could not be closed and was left open and after copiously irrigating the tourniquet was deflated and a few discrete bleeders were electrocauterized. The wound VAC was placed and set to -125 m of mercury. Sterile dressings and a posterior short leg splint was applied. The instrument, sponge, and needle counts were correct after wound closure. POST OPERATIVE PLAN: Weight Bearing: Nonweightbearing to the left lower extremity. DVT Prophylaxis: Per the primary team Activity: Strict elevation to the left lower extremity Wound Care: Keep the dressings intact, anticipate second look washout and attempt at wound closure in 24-48 hours. Pain Control: Per the primary team Perioperative antibiotic prophylaxis: 2 doses of postoperative antibiotics Follow Up: 2 weeks after discharge
--- NOTE | 2017-01-28 09:50 | Anesthesia Evaluation Post Op ---
Date of Encounter: 01/28/17 Time of Encounter: 09:50 - Vital Signs Vital Signs: vss - Lungs Lungs: Clear Ascult./Percussion - Airway Airway: Non-obstructed - Cardiovascular Baseline Rhythm - Mental Status Mental Status: Alert & Oriented, Answers Appropriately - Pain Pain Scale used: Ronaldo (Faces) - Nausea Vomiting Nausea Vomiting: Not Present - Hydration Hydration: Ice chips - Discharge PostOp Status: Transfer Patient to floor
[2017-01-28] MEDS ORDERED: *HR* Promethazine 25 MG/ML VIAL IVP PRN (11:00)
[2017-01-28] MEDS ORDERED: Naloxone 0.4 MG/ML INJ IVP PRN (11:00)
[2017-01-28] MEDS: Ondansetron 4 MG/2 ML VIAL IVP PRN ×2 (11:37→20:31)
[2017-01-28] MEDS: *HR* HYDROmorphone (PF) 1 MG/ML SYRINGE IVP PRN ×2 (11:37→15:55)
--- NOTE | 2017-01-28 12:40 | Internal Med History&Physical ---
Date of Encounter: 01/28/17 Time of Encounter: 12:38 Assessment and Plan (1) Rhabdomyolysis Current visit: Yes Status: Acute Likely secondary to compartment syndrome, unclear etiology of compartment syndrome. She denies injury or falls prior to the onset of pain. However she did report several falls over the last 24 hours which led to a left fifth metatarsal fracture and likely worse and rhabdomyolysis. We will treat this with aggressive IV fluid resuscitation. I will order maintenance fluids at 75 mL per hour and will give 1 more bolus of 1000 mL. I will recheck CK after the bolus. Strict I's and O's. Daily weights. Qualifiers: Rhabdomyolysis type: traumatic Encounter type: initial encounter Qualified Code(s): T79.6XXA - Traumatic ischemia of muscle, initial encounter (2) Acute kidney injury Current visit: Yes Status: Acute Likely secondary to rhabdomyolysis. Baseline creatinine is 0.8 per medical record review. Aggressive IV fluid resuscitation. Avoid nephrotoxins. Record strict I's and O 's. (3) Depression Current visit: No Status: Chronic Continue with home meds. Qualifiers: Depression Type: major depressive disorder Major depression recurrence: recurrent Active/Remission status: remission status unspecified Qualified Code(s): F33.9 - Major depressive disorder, recurrent, unspecified (4) Polysubstance abuse Current visit: No Status: Acute (5) Chronic pancreatitis Current visit: No Status: Chronic Continue Creon. Qualifiers: Pancreatitis type: other Qualified Code(s): K86.1 - Other chronic pancreatitis (6) Compartment syndrome of left lower extremity Current visit: Yes Status: Acute Appreciate orthopedics intervention. She is currently status post fasciotomy done this morning. We will continue with pain control with IV Dilaudid and oral oxycodone. She is at high risk for morbidity mortality and complications due to treatment with IV opiates for pain. Qualifiers: Encounter type: initial encounter Qualified Code(s): T79.A22A - Traumatic compartment syndrome of left lower extremity, initial encounter (7) Nondisplaced fracture of fifth left metatarsal bone Current visit: Yes Status: Acute Pain control with IV Dilaudid and oral oxycodone. Weightbearing per orthopedic service. Qualifiers: Encounter type: initial encounter Fracture type: closed Qualified Code(s) : S92.355A - Nondisplaced fracture of fifth metatarsal bone, left foot, initial encounter for closed fracture Internal Medicine - H&P: HPI Chief complaint: Left leg pain Admitted From: Emergency Dept Plans for Post Hospital Care: Home History of present illness: Ms. Calle is a 36 year old female who was brought by EMS for evaluation of left lower extremity pain. She reported sudden onset left lower leg pain which she describes as severe, located in the left kan, sharp, worse with bearing weight and progressive over the last day and a half. She had difficulty ambulating due to pain and suffered multiple falls over the last day because of unsteadiness. She denies any trauma prior to symptom onset. In the emergency department she was evaluated by orthopedics and measurements confirmed a diagnosis of compartment syndrome and she was taken to the OR emergently for fasciotomy. The patient is currently evaluated postoperatively. Past Med Surg Social Fam HX - Past Medical History Medical history: arthritis, GERD, kidney stones, migraine, seizures, other Psychiatric history: anxiety, bipolar, depression, previous psychiatric hospitalization - Past Surgical History Surgical History: cholecystectomy, other - Social History Smoking Status: Current every day smoker Packs per day: 1/2 Smokeless Tobacco Status: No Alcohol use: none Drug use: marijuana - Family History Mother Adopted: No Family Member Ethnicity: Non- Living Status: Hx Family Cardiac Disorders: No Hx Family Respiratory Disorders: No Hx Family Cancer: Yes (Breast) Hx Family GI Disorders: No Hx Family Endocrine Disorder: No Hx Family Neuromuscular Disorders: No Hx Family Neurologic Disorders: No Hx Family HEENT Disorders: No Hx Family Autoimmune Disorders: No Grandfather Living Status: Hx Family Cardiac Disorders: (heart disease) Internal Medicine - H&P: Meds Gabapentin [Neurontin] 400 mg PO TID 12/02/15 [History] Lipase/Protease/Amylase [Creon Dr 24,000 Units Capsule] 2 cap PO TIDWM 12/02/15 [History] Norgestimate-Ethinyl Estradiol [Sprintec 28 Day Tablet] 1 tab PO DAILY 12/02/15 [History] SUMAtriptan Succinate [Imitrex] 100 mg PO DAILY PRN MDD 200 mg 12/02/15 [History ] Tizanidine HCl [Zanaflex] 4 mg PO Q8H PRN 12/02/15 [History] Ranitidine HCl [Heartburn Relief] 150 mg PO HS 11/06/16 [History] Buspirone HCl [Buspar] 30 mg PO TID #90 11/13/16 [Rx] Trazodone HCl 300 mg PO HS #60 11/13/16 [Rx] diazePAM [Valium] 10 mg PO BID #60 11/13/16 [Rx] Dicyclomine [Bentyl] 10 mg PO QID PRN #20 capsule 12/13/16 [Rx] Ondansetron ODT [Zofran ODT] 4 mg SL Q6HR PRN #15 tab.rapdis 12/13/16 [Rx] Amitriptyline [Elavil] 25 mg PO QAM 01/06/17 [History] Lipase/Protease/Amylase [Ursula Miller 24,000 Units Capsule] 1 each PO QPM 01/06/17 [ History] Omeprazole [PriLOSEC] 40 mg PO DAILY 01/06/17 [History] Duloxetine HCl [Cymbalta] 60 mg PO BID #60 capsule. 01/09/17 [Rx] Promethazine [Phenergan] 25 mg PO Q6HR PRN #20 tablet 01/09/17 [Rx] Quetiapine Fumarate [Seroquel] 100 mg PO 0900,1300,1700 #90 tab 01/09/17 [Rx] Quetiapine Fumarate [Seroquel] 200 mg PO HS #30 tablet 01/09/17 [Rx] lamoTRIgine [Lamictal] 200 mg PO BID #60 tablet 01/09/17 [Rx] 3 Allergy/AdvReac Type Severity Reaction Status Date / Time metoclopramide [From Reglan] Allergy Seizure Verified 09/17/16 00:35 prochlorperazine Allergy Difficulty Verified 09/17/16 00:35 [From Compazine] Breathing haloperidol AdvReac See Verified 09/17/16 00:35 Comments All Systems PM: A 10-system review of systems was performed and is negative for pertinent findings except as documented above in the HPI. - Constitutional Vitals: Temp Pulse Resp BP Pulse Ox 97.4 F L 86 16 119/87 98 01/28/17 11:31 01/28/17 11:31 01/28/17 11:31 01/28/17 11:31 01/28/17 11:31 General appearance: Present: A&O X 3, no acute distress - Eye Eye exam: Present: PERRL, conjuntiva pink, sclera anicteric Pupils: Present: PERRL - Respiratory Respiratory exam: Present: CTAB. Absent: accessory muscle use, rales, rhonchi, wheezes - Cardiovascular Cardiovascular exam: Present: RRR, +S1, +S2. Absent: diastolic murmur, gallop, rubs, systolic murmur - GI/Abdominal GI/Abdominal exam: Present: normal bowel sounds, soft, no peritoneal signs. Absent: distended, tenderness - Extremities Exam Extremities exam: Present: warm, radial pulses palpable and symmetrical. Absent : calf tenderness, cyanotic, pedal edema Additional comments: Left lower extremity immobilized in a cast - Neurological Exam Neurological exam: Present: CN II-XII intact, oriented X3, no focal deficits. Absent: pronater drift, facial droop, speech deficit - Skin Skin exam: Present: dry, intact Internal Med - H&P Results - Labs CBC & Chem 7: 01/28/17 04:47 01/28/17 06:02 Labs: Her chart review creatinine on 01/07/2017 was 0.85 - Impressions The x-ray shows findings consistent with acute nondisplaced left fifth metatarsal fracture. - VTE Documentation of Mechanical Device: Intermittent pneumatic compression device
[2017-01-28] MEDS ORDERED: 0.9 % Sodium Chloride 1,000 ML IVC ONE ×2 (15:20→22:08)
[2017-01-28] MEDS ORDERED: SUMAtriptan succinate 50 MG TABLET PO PRN (15:25)
[2017-01-28] MEDS: (Norgestimate-Ethinyl Estradiol [Sprintec 28 Day Tabl) PO SCH (16:00)
[2017-01-28] MEDS: tiZANidine 4 MG TABLET PO PRN (16:54)
[2017-01-28] MEDS: *HR* Heparin 5,000 UNIT/ML VIAL SQ SCH (16:54)
[2017-01-28] MEDS: ceFAZolin 2,000 MG in D5% in Water 100 ML IVPB SCH ×2 (16:56→23:26)
--- NOTE | 2017-01-28 18:05 | Orthopedics Progress Note ---
Date of Encounter: 01/28/17 Time of Encounter: 18:02 - Assessment and Plan (1) Compartment syndrome of left lower extremity Current Visit: Yes Status: Acute I did discuss the diagnosis in detail with the patient. She does have significant left leg swelling and pain concerning for compartment syndrome. I did confirm this with compartment measurements including a superficial posterior compartment of 47 mmHg, a deep posterior compartment 24 mmHg, and anterior compartment 39 mmHg, and the lateral compartment 30 mmHg. My recommendation was for emergent 4 compartment fasciotomy of the left leg. The risks discussed included but were not limited to stiffness, bleeding, infection , blood clots, damage to neurovascular structures, tendons, ligaments, and bone. Also discussed was the risk of continued symptoms and possible need for further procedures. I did discuss the anesthesia risks including stroke, heart attack, and . I did discuss the reasonable, for stable postoperative course which may include multiple procedures for wound closure. I did express this to the patient in simple terms and she did wish to proceed and consent was obtained. We will proceed emergently to the operating room. Regarding the left fifth metatarsal fracture my recommendation will be for nonoperative management. Qualifiers: Encounter type: initial encounter Qualified Code(s): T79.A22A - Traumatic compartment syndrome of left lower extremity, initial encounter Subjective Interval history: S: Resting comfortably in bed. Expected pain, controlled with medication Per the nursing staff she had been smoking in the bathroom and putting weight on the left lower extremity. O: Afebrile and vital signs are stable Left leg with splint and dressing with VAC in place; minimal drainage She cannot extend the toes She does demonstrate weak toe flexion The plantar surface of the foot does have altered sensation but is intact No sensation along the dorsal foot The toes are warm and well perfused A: Postoperative day 0 after left leg fasciotomy; rhabdomyolysis; foot drop present preoperatively P: At this point my recommendation is aggressive elevation and VAC therapy. I will plan on second look I&D and hopefully wound closure on Wednesday after aggressive elevation in the meantime. Nonoperative management for the left fifth metatarsal fracture with nonweightbearing on the left lower extremity. It is impossible to tell this point if she will regain any neurologic recovery but if so this could take months. Objective Vital signs: Vital Signs Temp Pulse Resp BP Pulse Ox 01/28/17 15:26 97.6 F 86 18 118/84 94 01/28/17 11:31 97.4 F L 86 16 119/87 98 Intake and Output 01/28/17 01/28/17 01/28/17 07:59 15:59 23:59 Output Total 0 / 2 Balance 0 / -2 -10 -10 Output: Wound Drainage 0 / 0 Left Leg 0 / 0 - Labs CBC & BMP: 01/28/17 04:47 01/28/17 06:02 Labs: Abnormal lab results WBC 20.6 K/mcL (4.3-11.1) H 01/28/17 04:47 Plt Count 443 K/mcL (140-400) H 01/28/17 04:47 Neutrophils # 15.7 K/mcL (1.6-8.9) H 01/28/17 04:47 Monocytes # 1.7 K/mcL (0.0-1.3) H 01/28/17 04:47 ESR 39 mm/hr (0-15) H 01/28/17 04:47 Sodium 130 mEq/L (136-145) L 01/28/17 06:02 BUN 29 mg/dL (7-20) H 01/28/17 06:02 Creatinine 2.26 mg/dL (0.57-1.11) H 01/28/17 06:02 Est GFR ( Amer) 30 (> 60) L 01/28/17 06:02 Est GFR (Non-Af Amer) 24 (> 60) L 01/28/17 06:02 Glucose 120 mg/dL (70-99) H 01/28/17 06:02 Calculated Osmolality 277 (280-300) L 01/28/17 06:02 Uric Acid 8.5 mg/dL (2.6-6.0) H 01/28/17 06:02 Creatine Kinase > 21800 Units/L (29-168) H 01/28/17 04:47 C-Reactive Protein 250 mg/L (Less than 5) H 01/28/17 04:47 Ur Specimen Adequacy See below A 01/28/17 05:45 Urine Protein 100 mg/dL (Neg-Trace) H 01/28/17 05:45 Urine Blood Large (Negative) H 01/28/17 05:45 Ur Leukocyte Esterase Moderate (Negative) H 01/28/17 05:45 Urine Microscopic WBC 15-30 per hpf (0-3) H 01/28/17 05:45 Ur Squamous Epith Cells Many per lpf (None-Few) H 01/28/17 05:45 Urine Bacteria Many per hpf (None-Few) H 01/28/17 05:45 Ur Culture Indicated? YES (NO) A 01/28/17 05:45 Urine Opiates Screen Positive ng/mL (Romgwo=115) H 01/28/17 05:45 U Benzodiazepines Scrn Positive ng/mL (Gruqyb=206) H 01/28/17 05:45 U Marijuana (THC) Screen Positive ng/mL (Cutoff = 50) H 01/28/17 05:45 - VTE Documentation of Mechanical Device: Graduated compression elastic hosiery Consult Discharge Plan - Plan
[2017-01-28 18:34] LABS: Potassium 4.1 mEq/L (3.5-4.5)
[2017-01-28 18:53] LABS: Calcium 7.7 mg/dL (8.6-10.8)
[2017-01-28] MEDS ORDERED: Ketorolac 30 MG/ML VIAL IVP ONE (20:54)
[2017-01-28] MEDS ORDERED: Famotidine 20 MG TABLET PO SCH (21:00)
[2017-01-28] MEDS: traZODone 50 MG TABLET PO SCH (21:24)
[2017-01-28] MEDS: lamoTRIgine 100 MG TABLET PO SCH (21:24)
[2017-01-28] MEDS: diazePAM 10 MG TABLET PO SCH (21:25)
[2017-01-28] MEDS: Gabapentin 400 MG CAPSULE PO SCH (21:25)
[2017-01-28] MEDS ORDERED: Acetaminophen 325 MG TABLET PO PRN (22:10)
[2017-01-28] MEDS ORDERED: 0.9 % Sodium Chloride 1,000 ML IVC SCH (22:15)
[2017-01-29] MEDS: *HR* HYDROmorphone (PF) 1 MG/ML SYRINGE IVP PRN ×3 (00:57→09:32)
[2017-01-29] MEDS: Ondansetron 4 MG/2 ML VIAL IVP PRN (05:14)
[2017-01-29] MEDS: *HR* Heparin 5,000 UNIT/ML VIAL SQ SCH ×2 (05:21→17:16)
--- NOTE | 2017-01-29 07:23 | Orthopedics Progress Note ---
Date of Encounter: 01/29/17 Time of Encounter: 07:22 - Assessment and Plan (1) Compartment syndrome of left lower extremity Current Visit: Yes Status: Acute I did discuss the diagnosis in detail with the patient. She does have significant left leg swelling and pain concerning for compartment syndrome. I did confirm this with compartment measurements including a superficial posterior compartment of 47 mmHg, a deep posterior compartment 24 mmHg, and anterior compartment 39 mmHg, and the lateral compartment 30 mmHg. My recommendation was for emergent 4 compartment fasciotomy of the left leg. The risks discussed included but were not limited to stiffness, bleeding, infection , blood clots, damage to neurovascular structures, tendons, ligaments, and bone. Also discussed was the risk of continued symptoms and possible need for further procedures. I did discuss the anesthesia risks including stroke, heart attack, and . I did discuss the reasonable, for stable postoperative course which may include multiple procedures for wound closure. I did express this to the patient in simple terms and she did wish to proceed and consent was obtained. We will proceed emergently to the operating room. Regarding the left fifth metatarsal fracture my recommendation will be for nonoperative management. Qualifiers: Encounter type: initial encounter Qualified Code(s): T79.A22A - Traumatic compartment syndrome of left lower extremity, initial encounter Subjective Interval history: S: Resting comfortably in bed. Expected pain, controlled with medication O: Afebrile and vital signs are stable Left leg with splint and dressing with VAC in place; 50 mL of total output, serosanguinous She cannot extend the toes She does demonstrate weak toe flexion The plantar surface of the foot does have altered sensation but is intact No sensation along the dorsal foot The toes are warm and well perfused A: Postoperative day 1 after left leg fasciotomy; rhabdomyolysis; foot drop present preoperatively P: At this point my recommendation is aggressive elevation and VAC therapy. I will plan on second look I&D and hopefully wound tomorrow after aggressive elevation in the meantime. Nonoperative management for the left fifth metatarsal fracture with nonweightbearing on the left lower extremity. It is impossible to tell this point if she will regain any neurologic recovery but if so this could take months. Objective Vital signs: Vital Signs Temp Pulse Resp BP Pulse Ox 01/29/17 04:57 97.4 F L 79 14 116/79 98 01/29/17 00:43 97.6 F 76 14 115/81 97 01/28/17 21:50 66 90/61 01/28/17 20:24 97.8 F 72 14 87/52 96 01/28/17 15:26 97.6 F 86 18 118/84 94 01/28/17 11:31 97.4 F L 86 16 119/87 98 Intake and Output 01/28/17 01/28/17 01/29/17 15:59 23:59 07:59 Intake Total 100 / 100 1000 / 1000 Output Total 0 / 2 110 / 110 0 / 0 Balance 0 / -2 -10 / -10 1000 / 1000 Intake: IV Fluids 100 / 100 1000 / 1000 0.9 % Sodium Chloride 1,000 ML 1000 / 1000 @ 3750 mls/hr IVC .Q16M ONE Rx# :[id number] Ancef 2,000 MG In Dextrose 5% 100 / 100 100 ML @ 200 mls/hr IVPB Q8HR JACQUELYN Rx#:[id number] Output: Urine 100 / 100 0 / 0 Wound Drainage 0 / 0 10 Left Leg 0 / 0 Other: # Voids 1 - Labs CBC & BMP: 01/28/17 04:47 01/28/17 18:01 Labs: Abnormal lab results WBC 20.6 K/mcL (4.3-11.1) H 01/28/17 04:47 Plt Count 443 K/mcL (140-400) H 01/28/17 04:47 Neutrophils # 15.7 K/mcL (1.6-8.9) H 01/28/17 04:47 Monocytes # 1.7 K/mcL (0.0-1.3) H 01/28/17 04:47 ESR 39 mm/hr (0-15) H 01/28/17 04:47 Sodium 131 mEq/L (136-145) L 01/28/17 18:01 BUN 33 mg/dL (7-20) H 01/28/17 18:01 Creatinine 2.91 mg/dL (0.57-1.11) H 01/28/17 18:01 Est GFR ( Amer) 22 (> 60) L 01/28/17 18:01 Est GFR (Non-Af Amer) 18 (> 60) L 01/28/17 18:01 Glucose 155 mg/dL (70-99) H 01/28/17 18:01 Uric Acid 8.5 mg/dL (2.6-6.0) H 01/28/17 06:02 Calcium 7.7 mg/dL (8.6-10.8) L D 01/28/17 18:01 Creatine Kinase > 16516 Units/L (29-168) H 01/28/17 04:47 C-Reactive Protein 250 mg/L (Less than 5) H 01/28/17 04:47 Ur Specimen Adequacy See below A 01/28/17 05:45 Urine Protein 100 mg/dL (Neg-Trace) H 01/28/17 05:45 Urine Blood Large (Negative) H 01/28/17 05:45 Ur Leukocyte Esterase Moderate (Negative) H 01/28/17 05:45 Urine Microscopic WBC 15-30 per hpf (0-3) H 01/28/17 05:45 Ur Squamous Epith Cells Many per lpf (None-Few) H 01/28/17 05:45 Urine Bacteria Many per hpf (None-Few) H 01/28/17 05:45 Ur Culture Indicated? YES (NO) A 01/28/17 05:45 Urine Opiates Screen Positive ng/mL (Spporh=165) H 01/28/17 05:45 U Benzodiazepines Scrn Positive ng/mL (Xrlvxm=977) H 01/28/17 05:45 U Marijuana (THC) Screen Positive ng/mL (Cutoff = 50) H 01/28/17 05:45 - VTE Documentation of Mechanical Device: Graduated compression elastic hosiery Consult Discharge Plan - Plan Referrals: Alka Castanon DO [Primary Care Provider] -
[2017-01-29] MEDS: Gabapentin 400 MG CAPSULE PO SCH ×3 (09:35→20:31)
[2017-01-29] MEDS: lamoTRIgine 100 MG TABLET PO SCH ×2 (09:35→20:33)
[2017-01-29] MEDS: diazePAM 10 MG TABLET PO SCH ×2 (09:36→20:32)
[2017-01-29] MEDS: (Norgestimate-Ethinyl Estradiol [Sprintec 28 Day Tabl) PO SCH (09:37)
--- NOTE | 2017-01-29 10:17 | Internal Med Progress Note ---
Date of Encounter: 01/29/17 Time of Encounter: 10:13 - Assessment and plan (1) Compartment syndrome Current Visit: Yes Status: Acute Assessment and plan: Patient presented with acute progressive left leg pain, swelling and noted to have rhabdomyolysis, compartment syndrome with associated fifth metatarsal fracture. Orthopedic surgery was consulted, patient underwent 4-compartment fasciotomy. Continue pain control, will discontinue Dilaudid and start Morphine along with PO Percocet. Local wound care and wound vac management per Orthopedic surgery. Plan for repeat OR in am. PT/OT evaluation. Qualifiers: Compartment syndrome type: traumatic Encounter type: initial encounter Compartment syndrome location: lower extremity Laterality: left Qualified Code(s): T79.A22A - Traumatic compartment syndrome of left lower extremity, initial encounter (2) Rhabdomyolysis Current Visit: Yes Status: Acute Assessment and plan: likely related to left 5th metatarsal fracture. Serum CK improving, now down to 20K; continue IV hydration; renal function noted to be worsening. Qualifiers: Rhabdomyolysis type: traumatic Encounter type: initial encounter Qualified Code(s): T79.6XXA - Traumatic ischemia of muscle, initial encounter (3) Acute kidney injury Current Visit: Yes Status: Acute Assessment and plan: likely related to rhabdomyolysis; serum creatinine noted to be worsening, 3.6 today. Serum creatinine kinase improving. Continue IV hydration and monitor urine output closely. Will consult nephrology for further recommendations. Urine culture shows no significant bacterial growth. (4) Chronic pancreatitis Current Visit: Yes Status: Chronic Assessment and plan: continue pancreatic enzyme supplements; Qualifiers: Pancreatitis type: other Qualified Code(s): K86.1 - Other chronic pancreatitis (5) Closed nondisplaced fracture of fifth left metatarsal bone Current Visit: Yes Status: Acute Assessment and plan: traumatic. Orthopedics consult appreciated; nonoperative management with non- weight bearing, pain control, PT/OT; Qualifiers: Encounter type: initial encounter Qualified Code(s): S92.355A - Nondisplaced fracture of fifth metatarsal bone, left foot, initial encounter for closed fracture (6) Depression Current Visit: Yes Status: Chronic Qualifiers: Depression Type: major depressive disorder Major depression recurrence: recurrent Active/Remission status: remission status unspecified Qualified Code(s): F33.9 - Major depressive disorder, recurrent, unspecified (7) Polysubstance abuse Current Visit: Yes Status: Chronic Assessment and plan: Urine drug screen positive for Marijuana, BDZ, opiates; social work msw consult for safe discharge; - Subjective Interval history: Reports left leg pain, responding to IV pain meds. No nausea, vomiting, abdominal pain; Reports numbness in left lower leg and foot. Also has weakness in left toes; - Constitutional Vitals: Temp Pulse Resp BP Pulse Ox 97.8 F 74 16 112/73 99 01/29/17 07:01 01/29/17 07:01 01/29/17 07:01 01/29/17 07:01 01/29/17 07:01 General appearance: Present: A&O X 3, no acute distress, answers questions appropriately - Respiratory Respiratory exam: Present: CTAB. Absent: accessory muscle use, rales, rhonchi, wheezes - Cardiovascular Cardiovascular exam: Present: RRR, +S1, +S2. Absent: diastolic murmur, gallop, rubs, systolic murmur - GI/Abdominal GI/Abdominal exam: Present: normal bowel sounds, soft, no peritoneal signs. Absent: distended, tenderness - Extremities Exam Extremities exam: Present: warm, radial pulses palpable and symmetrical. Absent : calf tenderness, cyanotic, pedal edema Additional comments: left leg in surgical dressing and wound vac draining serosanguineous fluid; tenderness over leg+ Numbness and decreased sensation over left toes Internal Medicine: Result - Labs CBC & Chem 7: 01/29/17 10:12 01/29/17 10:12 Labs: BMP 01/28/17 18:01 Sodium 131 L Potassium 4.1 Chloride 102 Carbon Dioxide 19 BUN 33 H Creatinine 2.91 H Glucose 155 H Calcium 7.7 L D - VTE Documentation of Mechanical Device: Intermittent pneumatic compression device Consult Discharge Plan - Plan Referrals: Alka Castanon DO [Primary Care Provider] -
[2017-01-29 10:20] LABS: Immature Granulocytes % 0.6 % (0-4); Lymphocytes % 16.4 %; Mean Corpuscular HGB Conc 32.9 g/dL (31.6-35.5); Mean Corpuscular Hemoglobin 30.4 pg (28.0-33.3); Mean Corpuscular Volume 92.4 fL (83.0-100.0); Mean Platelet Volume 9.5 fL (9.4-12.4); Monocytes % 6.8 %; Platelet Count 328 K/mcL (140-400); Red Blood Count 3.68 M/mcL (3.82-4.97); Red Cell Distribution Width 13.7 % (11.5-14.5); Segmented Neutrophils % 75.5 %
[2017-01-29 10:21] LABS: Basophils % 0.2 %; Eosinophils # 0.1 K/mcL (0.0-0.6); Eosinophils % 0.5 %; Lymphocytes # 2.2 K/mcL (0.6-4.6); Monocytes # 0.9 K/mcL (0.0-1.3)
[2017-01-29 10:23] LABS: Hemoglobin 11.2 g/dL (11.5-15.4)
[2017-01-29 10:34] LABS: Calcium 8.3 mg/dL (8.6-10.8); Magnesium 2.1 mg/dL (1.6-2.6); Potassium 3.8 mEq/L (3.5-4.5)
[2017-01-29] MEDS ORDERED: 0.9 % Sodium Chloride 1,000 ML ONE (11:20)
[2017-01-29] MEDS: *HR* Morphine 2 MG/ML SYRINGE IVP PRN ×2 (15:10→20:34)
[2017-01-29] MEDS ORDERED: 0.9 % Sodium Chloride 1,000 ML IVC SCH (15:15)
--- NOTE | 2017-01-29 15:33 | Nephrology Consult Note ---
Date of Encounter: 01/29/17 Time of Encounter: 14:30 Assessment and Plan (1) Rhabdomyolysis Current Visit: Yes Status: Acute Patient presented with compartment syndrome of the left lower extremity is now status post fasciotomy. Initial creatinine kinase is greater than 41,000 currently 21,888. She has received 2 L normal saline currently has normal saline running at 100 mL's per hour. - Creatinine currently 3.6, with previously normal renal function continuing to elevate - GFR 14 Acute kidney injury likely secondary to dehydration as review of lab results demonstrates dilutional improvements despite creatinine and GFR which are likely worsening with current rhabdomyolysis. Plan: - 1 L normal saline bolus now - D5 in water with 150 sodium bicarbonate at 200 mL's per hour for rhabdo and metabolic acidosis. - Recheck CK in morning - Recheck renal function with CMP in the morning Qualifiers: Rhabdomyolysis type: traumatic Encounter type: initial encounter Qualified Code(s): T79.6XXA - Traumatic ischemia of muscle, initial encounter (2) Compartment syndrome of left lower extremity Current Visit: Yes Status: Acute Patient presented to hospital with left lower extremity swelling found to have compartment syndrome and underwent emergent fasciotomy and multiple compartments. - Status post fasciotomy - Management per primary team - Compartment syndrome Likely the cause of her rhabdomyolysis. Qualifiers: Encounter type: initial encounter Qualified Code(s): T79.A22A - Traumatic compartment syndrome of left lower extremity, initial encounter (3) Acute kidney injury Current Visit: Yes Status: Acute Acute kidney injury Secondary rhabdomyolysis. Current creatinine 3.60, GFR 14. Baseline creatinine 0.80 with GFR greater than 60. - Plan is listed above. - Avoid nephrotoxic medications, renally dose antibiotics - strict intake and output monitoring, daily weights - monitor renal function with a.m. labs (4) Nondisplaced fracture of fifth left metatarsal bone Current Visit: Yes Status: Acute Management per primary team. Qualifiers: Encounter type: initial encounter Fracture type: closed Qualified Code(s) : S92.355A - Nondisplaced fracture of fifth metatarsal bone, left foot, initial encounter for closed fracture History of Present Illness - Reason for Consult Consult date: 01/29/17 Acute Kidney Injury Requesting physician: Kriss Marshall - Chief Complaint Rhabdomyolysis - History of Present Illness Ms. Calle 36-year-old female past medical history of kidney stones, GERD, migraines, bipolar, depression, previous psychiatric hospitalization was admitted to [facility] and underwent left lower extremity fasciotomy for compartment syndrome. She states that she spontaneously developed left lower extremity swelling and had difficulty lifting her left foot. She noticed it mostly when she went to the store and was walking around and was falling multiple times. She was upset and blamed her friend for not going with her. She states she fell more at home and had difficulty feeling her foot prior to admission. She denies any history of renal failure but does have a history of kidney stones with her last kidney stones requiring stent placement 2 years ago. She also had recurrent urinary tract infections with her last UTI 2 years ago. She says she is currently making urine but not a lot but is yellow in color and has not noticed any blood or cola colored urine. She said that she had been eating and drinking fine prior to admission and denies any prolonged fasting or dehydration. Past Med Surg Social Fam HX - Past Medical History Medical history: arthritis, GERD, kidney stones, migraine, seizures, other Psychiatric history: anxiety, bipolar, depression, previous psychiatric hospitalization - Past Surgical History Surgical History: cholecystectomy, other - Social History Smoking Status: Current every day smoker Packs per day: 1/2 Smokeless Tobacco Status: No Alcohol use: none Drug use: marijuana - Family History Mother Adopted: No Family Member Ethnicity: Non- Living Status: Hx Family Cardiac Disorders: No Hx Family Respiratory Disorders: No Hx Family Cancer: Yes (Breast) Hx Family GI Disorders: No Hx Family Endocrine Disorder: No Hx Family Neuromuscular Disorders: No Hx Family Neurologic Disorders: No Hx Family HEENT Disorders: No Hx Family Autoimmune Disorders: No Grandfather Living Status: Hx Family Cardiac Disorders: (heart disease) Medications and Allergies Gabapentin [Neurontin] 400 mg PO TID 12/02/15 [History] Lipase/Protease/Amylase [Creon Dr 24,000 Units Capsule] 2 cap PO TIDWM 12/02/15 [History] Norgestimate-Ethinyl Estradiol [Sprintec 28 Day Tablet] 1 tab PO DAILY 12/02/15 [History] SUMAtriptan Succinate [Imitrex] 100 mg PO DAILY PRN MDD 200 mg 12/02/15 [History ] Tizanidine HCl [Zanaflex] 4 mg PO Q8H PRN 12/02/15 [History] Ranitidine HCl [Heartburn Relief] 150 mg PO HS 11/06/16 [History] Buspirone HCl [Buspar] 30 mg PO TID #90 11/13/16 [Rx] Trazodone HCl 300 mg PO HS #60 11/13/16 [Rx] diazePAM [Valium] 10 mg PO BID #60 11/13/16 [Rx] Dicyclomine [Bentyl] 10 mg PO QID PRN #20 capsule 12/13/16 [Rx] Ondansetron ODT [Zofran ODT] 4 mg SL Q6HR PRN #15 tab.rapdis 12/13/16 [Rx] Amitriptyline [Elavil] 25 mg PO QAM 01/06/17 [History] Lipase/Protease/Amylase [Ursula Miller 24,000 Units Capsule] 1 each PO QPM 01/06/17 [ History] Omeprazole [PriLOSEC] 40 mg PO DAILY 01/06/17 [History] Duloxetine HCl [Cymbalta] 60 mg PO BID #60 capsule. 01/09/17 [Rx] Promethazine [Phenergan] 25 mg PO Q6HR PRN #20 tablet 01/09/17 [Rx] Quetiapine Fumarate [Seroquel] 100 mg PO 0900,1300,1700 #90 tab 01/09/17 [Rx] Quetiapine Fumarate [Seroquel] 200 mg PO HS #30 tablet 01/09/17 [Rx] lamoTRIgine [Lamictal] 200 mg PO BID #60 tablet 01/09/17 [Rx] 3 Allergy/AdvReac Type Severity Reaction Status Date / Time metoclopramide [From Reglan] Allergy Seizure Verified 09/17/16 00:35 prochlorperazine Allergy Difficulty Verified 09/17/16 00:35 [From Compazine] Breathing haloperidol AdvReac See Verified 09/17/16 00:35 Comments Review of Systems Constitutional: no excessive sweating, no weight loss Eyes: bilateral: blurred vision (patient denies), diplopia (patient denies) Nose, mouth and throat: no dizziness, no headache(s) Cardiovascular: no chest pain, no palpitations Respiratory: no cough, no dyspnea Gastrointestinal: no abdominal pain, no change in bowel habits Musculoskeletal: muscle weakness, numbness, other (Loss of sensation left foot.) Integumentary: no hirsutism, no striae Psychiatric: no depression, no difficulty concentrating Endocrine: as per HPI Hematologic/Lymphatic: no easy bruising, no lymphadenopathy Exam - Vital Signs Vital signs: Initial Vital Signs Temp Pulse Resp BP Pulse Ox 98.0 F 120 18 129/103 98 01/28/17 02:19 01/28/17 02:19 01/28/17 02:19 01/28/17 02:19 01/28/17 02:19 Vital Signs - Last 8 Hours Temp Pulse Resp BP Pulse Ox 01/29/17 10:28 98 F 79 14 107/64 97 Intake and Output 01/28/17 01/29/17 01/29/17 23:59 07:59 15:59 Intake Total 100 / 100 1000 / 1000 Output Total 110 / 110 0 / 0 850 / 850 Balance -10 / -10 1000 / 1000 -850 / -850 Intake: IV Fluids 100 / 100 1000 / 1000 0.9 % Sodium Chloride 1,000 ML 1000 / 1000 @ 3750 mls/hr IVC .Q16M ONE Rx# :[id number] Ancef 2,000 MG In Dextrose 5% 100 / 100 100 ML @ 200 mls/hr IVPB Q8HR JACQUELYN Rx#:[id number] Output: Urine 100 / 100 0 / 0 850 / 850 Wound Drainage Left Leg Other: # Voids 1 1 - General Appearance Exam: General: Patient lethargic, awake, oriented 3, interactive, in no acute distress HEENT: Normocephalic, atraumatic, oral mucosa moist, uvula midline, neck supple trachea midline no palpable lymphadenopathy, no thyromegaly. Chest: Symmetric bilateral correlating with respiratory effort, effort nonlabored. Cardiac: Regular rate and rhythm, positive S1 and S2. no bruits appreciated bilateral carotids, Radial pulses 2+ bilateral. Respiratory: Clear to auscultation all lung zazueta Abdomen: Soft, nontender, positive bowel sounds, no palpable masses appreciated on examination Extremities: Patient able to move bilateral upper extremities without weakness, patient retains sensation and motor function right lower extremity. Left lower extremity is wrapped post surgery. Toes are exposed demonstrate appropriate circulation and warm, patient unable to move her left teres and says she cannot feel to pinching of the toes. Neurologic: Face symmetric, as mentioned above Results - Lab Results 01/29/17 10:12 01/29/17 10:12 Most recent lab results Calcium 8.3 mg/dL (8.6-10.8) L 01/29/17 10:12 Magnesium 2.1 mg/dL (1.6-2.6) 01/29/17 10:12 Consult Discharge Plan - Plan Referrals: Alka Castanon DO [Primary Care Provider] -
[2017-01-29] MEDS ORDERED: 0.9 % Sodium Chloride 1,000 ML IVC ONE (15:41)
[2017-01-29] MEDS: Sodium Bicarbonate 150 MEQ in D5% in Water 1,000 ML IVC SCH (17:15)
[2017-01-29] MEDS: *HR* OxyCODONE Immed Rel 5 MG TABLET PO PRN (17:16)
[2017-01-29] MEDS: traZODone 50 MG TABLET PO SCH ×2 (20:31→21:48)
[2017-01-29] MEDS: Famotidine 20 MG TABLET PO SCH (20:32)
[2017-01-30] MEDS: *HR* Morphine 2 MG/ML SYRINGE IVP PRN ×5 (00:36→22:38)
[2017-01-30] MEDS: Sodium Bicarbonate 150 MEQ in D5% in Water 1,000 ML IVC SCH ×2 (00:49→18:00)
[2017-01-30 04:20] LABS: Basophils % 0.3 %; Eosinophils # 0.2 K/mcL (0.0-0.6); Eosinophils % 1.7 %; Hematocrit 27.7 % (35.3-44.9); Immature Granulocytes % 0.4 % (0-4); Lymphocytes # 2.7 K/mcL (0.6-4.6); Lymphocytes % 29.6 %; Mean Corpuscular HGB Conc 32.9 g/dL (31.6-35.5); Mean Corpuscular Volume 91.4 fL (83.0-100.0); Mean Platelet Volume 9.5 fL (9.4-12.4); Monocytes # 0.6 K/mcL (0.0-1.3); Monocytes % 6.3 %; Neutrophils # 5.6 K/mcL (1.6-8.9); Platelet Count 295 K/mcL (140-400); Red Blood Count 3.03 M/mcL (3.82-4.97); Segmented Neutrophils % 61.7 %
[2017-01-30 04:32] LABS: Hemoglobin 9.1 g/dL (11.5-15.4)
[2017-01-30 04:48] LABS: Calcium 7.7 mg/dL (8.6-10.8); Magnesium 1.9 mg/dL (1.6-2.6); Potassium 3.2 mEq/L (3.5-4.5)
[2017-01-30] MEDS: *HR* Heparin 5,000 UNIT/ML VIAL SQ SCH ×2 (05:29→18:03)
--- NOTE | 2017-01-30 06:59 | Anesthesia Evaluation PreOp ---
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 Has had marked increase in casey saw operator that has been resolving with hydration, alkalosis.) Anesthesia History: No Prior Anesthetic Complications, Past Anesthesia ( Underwent fasciotomy on 01/28 without complication) Test: Negative Alcohol Use: none Drug use: marijuana Medications and Allergies Gabapentin [Neurontin] 400 mg PO TID 12/02/15 [History] Lipase/Protease/Amylase [Ursula Miller 24,000 Units Capsule] 2 cap PO TIDWM 12/02/15 [History] Norgestimate-Ethinyl Estradiol [Sprintec 28 Day Tablet] 1 tab PO DAILY 12/02/15 [History] SUMAtriptan Succinate [Imitrex] 100 mg PO DAILY PRN MDD 200 mg 12/02/15 [History ] Tizanidine HCl [Zanaflex] 4 mg PO Q8H PRN 12/02/15 [History] Ranitidine HCl [Heartburn Relief] 150 mg PO HS 11/06/16 [History] Buspirone HCl [Buspar] 30 mg PO TID #90 11/13/16 [Rx] Trazodone HCl 300 mg PO HS #60 11/13/16 [Rx] diazePAM [Valium] 10 mg PO BID #60 11/13/16 [Rx] Dicyclomine [Bentyl] 10 mg PO QID PRN #20 capsule 12/13/16 [Rx] Ondansetron ODT [Zofran ODT] 4 mg SL Q6HR PRN #15 tab.rapdis 12/13/16 [Rx] Amitriptyline [Elavil] 25 mg PO QAM 01/06/17 [History] Lipase/Protease/Amylase [Ursula Miller 24,000 Units Capsule] 1 each PO QPM 01/06/17 [ History] Omeprazole [PriLOSEC] 40 mg PO DAILY 01/06/17 [History] Duloxetine HCl [Cymbalta] 60 mg PO BID #60 capsule. 01/09/17 [Rx] Promethazine [Phenergan] 25 mg PO Q6HR PRN #20 tablet 01/09/17 [Rx] Quetiapine Fumarate [Seroquel] 100 mg PO 0900,1300,1700 #90 tab 01/09/17 [Rx] Quetiapine Fumarate [Seroquel] 200 mg PO HS #30 tablet 01/09/17 [Rx] lamoTRIgine [Lamictal] 200 mg PO BID #60 tablet 01/09/17 [Rx] 3 Allergy/AdvReac Type Severity Reaction Status Date / Time metoclopramide [From Reglan] Allergy Seizure Verified 09/17/16 00:35 prochlorperazine Allergy Difficulty Verified 09/17/16 00:35 [From Compazine] Breathing haloperidol AdvReac See Verified 09/17/16 00:35 Comments - Meds/Allergy Pre-op Review Medications Reviewed: Yes Allergies Reviewed: Yes Beta Blockers on Current Med List: No Anesthesia Results - Labs 01/30/17 04:17 01/30/17 04:17 - Imaging EKG: report reviewed (sinus brenda, nonspecific ST changes) Anesthesia Exam Selected Entries 01/30/17 05:27 Temperature 98.0 F Pulse Rate 89 Respiratory Rate 15 Blood Pressure 138/87 O2 Sat by Pulse Oximetry 96 Laboratory Tests 01/30/17 01/30/17 04:17 04:17 WBC 9.1 Hgb 9.1 L D Hct 27.7 L Plt Count 295 Sodium 144 D Potassium 3.2 L Chloride 108 Carbon Dioxide 29 BUN 39 H Creatinine 3.95 H Glucose 107 H Height: 5'3" Weight: 140 NPO (# of Hours): over 12 hours - HEENT Pupil (Motor): Pupils equal Mallampati: II Teeth: Edentulous Oral Opening: Greater than 3 - Cardiac Rhythm: Regular Murmur: None - Pulmonary Breath Sounds: bilateral Clear Respiratory Effort: Symmetrical Anesthesia Assess/Plan ASA Score: 2 Modified Adeline Scale for Level of Consciousness: Cooperative, oriented, and tranquil Anesthetic Plan: General Monitoring Plan: Standard Monitors Recovery Plan: PACU
[2017-01-30] MEDS ORDERED: Ondansetron 4 MG/2 ML VIAL IVP ONE (07:04)
[2017-01-30] MEDS ORDERED: *HR* Midazolam HCl 2 MG/2 ML VIAL IVP PRN (07:04)
[2017-01-30] MEDS ORDERED: *HR* Morphine 2 MG/ML SYRINGE IVP PRN (07:04)
[2017-01-30] MEDS ORDERED: Albuterol 2.5 MG/3 ML NEBULIZER IH ONE (07:07)
[2017-01-30] MEDS ORDERED: *HR* Succinylcholine 200 MG/10 ML VIAL IVP ONE (07:16)
[2017-01-30] MEDS ORDERED: *HR* Midazolam HCl 2 MG/2 ML VIAL ONE (07:16)
[2017-01-30] MEDS ORDERED: *HR* FentaNYL (PF) 100 MCG/2 ML VIAL ONE (07:16)
[2017-01-30] MEDS ORDERED: Dexamethasone 4 MG/ML VIAL ONE (07:16)
[2017-01-30] MEDS ORDERED: Ondansetron 4 MG/2 ML VIAL ONE (07:16)
[2017-01-30] MEDS ORDERED: *HR* Propofol 200 MG/20 ML VIAL IVP ONE (07:16)
[2017-01-30] MEDS ORDERED: Lidocaine -MPF 2% 2 ML VIAL ONE (07:16)
[2017-01-30] MEDS ORDERED: *HR* Morphine 10 MG/ML VIAL ONE (07:17)
[2017-01-30] MEDS ORDERED: Potassium Chloride 40 MEQ, Lidocaine 1% 2 ML in D5% in Water 500 ML IVPB ONE (07:59)
[2017-01-30] MEDS: Gabapentin 400 MG CAPSULE PO SCH ×3 (09:00→20:46)
[2017-01-30] MEDS: lamoTRIgine 100 MG TABLET PO SCH ×2 (09:00→20:44)
[2017-01-30] MEDS: diazePAM 10 MG TABLET PO SCH ×2 (09:00→20:46)
--- NOTE | 2017-01-30 09:15 | Orthopedic Operative Note ---
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): There were no assistants PREOPERATIVE DIAGNOSIS: Post 4 compartment fasciotomywith open lateral wound POSTOPERATIVE DIAGNOSIS: Same PROCEDURE: Partial wound closure of left leg fasciotomy wound with placement of VAC assisted closure device ANESTHESIA: General anesthesia PREOPERATIVE ANTIBIOTICS: 2 g of Ancef ESTIMATED BLOOD LOSS: 2 milliliters TOURNIQUET TIME: N/A SPECIMENS: There were no specimens IMPLANTS: There were no implants LOCAL INJECTION: None PREOPERATIVE NOTE AND INDICATIONS: This patient is a 36-year-old female who is about 48 hours out from left leg fasciotomy for compartment syndrome. She has been aggressively elevating the left leg since the procedure. She had a wound VAC in place. The recommendation was to proceed to the OR to attempt wound closure. The surgical plan was discussed with the patient. The risks, benefits, alternatives, and potential complications of this procedure were discussed with the patient including injury to veins, arteries, nerves, tendons, ligaments, and bone. Also discussed were the risks of infection, bleeding, pain, blood clots, the possible need for a blood transfusion, the possible need for further procedures, heart attack, stroke, and . Additional risks include the risk of requiring further debridements and wound closure versus possible need for split-thickness skin grafting. All of this was explained in simple terms, and the patient verbalized understanding and wished to proceed. Consent was given to proceed with surgery. PROCEDURE: The patient was seen in the preoperative holding area where the identify and the consent were confirmed. The left leg was marked. Final questions were answered. The patient was brought back to the operating room and placed supine on the operating room table. A huddle was performed with the patient and all vital surgical team members confirming patient identity, the correct procedure, and the correct operative site. General anesthesia was administered. The left lower extremity was prepped and draped in the usual sterile fashion. A surgical time out was performed immediately preceding the incision with all personnel in the operating room to confirm patient identity, the correct operative site and extremity, correct radiographic studies, availability of appropriate surgical equipment, and agreement on the planned procedure. No tourniquet was used. The medial wound is healing nicely without any drainage. The lateral wound is evaluated. The muscle was examined and noted to be quite healthy with good contractility. An attempt at wound closure was made and using an 0 Vicryl stitch about 4 cm of the wound could be closed proximally but no further closure was possible. Therefore the decision was made to place a wound VAC and the wound was copiously irrigated and the large black sponge placed in the wound bed. Using a series of Vesseloops tension was created on the skin to assist in later closure. The VAC was applied and set to 125 mmHg continuous. A sterile dressing followed by placement of a short leg splint keeping the ankle at 90 was placed. The instrument, sponge, and needle counts were correct after wound closure. POST OPERATIVE PLAN: Weight Bearing: Nonweightbearing to the left lower extremity DVT Prophylaxis: Per the primary team Activity: Aggressive elevation to the left lower extremity. Wound Care: Keep the wound VAC in place Pain Control: Per the primary team
--- NOTE | 2017-01-30 11:02 | Internal Med Progress Note ---
<RichardKhalif daigle - Last Filed: 01/30/17 14:54> Date of Encounter: 01/30/17 Time of Encounter: 11:43 - Assessment and plan (1) Compartment syndrome Current Visit: Yes Status: Acute Assessment and plan: Patient presented with acute progressive left leg pain, swelling and noted to have rhabdomyolysis, compartment syndrome with associated fifth metatarsal fracture. Orthopedic surgery was consulted, patient underwent 4-compartment fasciotomy. Plan: Continue pain control: Morphine along with PO Percocet. Local wound care and wound vac management per Orthopedic surgery. PT/OT evaluation. patient went to OR to try to close her wound, but could not due to excess swelling. will continue to follow ortho recs. back to OR on wednesday for closure. (2) Rhabdomyolysis Current Visit: Yes Status: Acute Assessment and plan: likely related to left 5th metatarsal fracture. Serum CK improving; continue IV hydration; renal function noted to be worsening. Plan: appreciate nephro recs continue D5 with bicarb per nephro (3) Acute kidney injury Current Visit: Yes Status: Acute Assessment and plan: likely related to rhabdomyolysis; serum creatinine noted to be worsening, 3.95 today. Serum creatinine kinase improving. Continue IV hydration and monitor urine output closely. Appreciate nephro recs. Urine culture shows no significant bacterial growth. (4) Chronic pancreatitis Current Visit: Yes Status: Chronic Assessment and plan: continue pancreatic enzyme supplements; (5) Closed nondisplaced fracture of fifth left metatarsal bone Current Visit: Yes Status: Acute Assessment and plan: traumatic. Orthopedics consult appreciated; nonoperative management with non- weight bearing, pain control, PT/OT; (6) Depression Current Visit: Yes Status: Chronic Assessment and plan: continue home elavil, buspar. (7) Polysubstance abuse Current Visit: Yes Status: Chronic Assessment and plan: Urine drug screen positive for Marijuana, BDZ, opiates; vp digital marketing social media and crm consult for safe discharge; (8) DVT prophylaxis Current Visit: Yes Status: Acute Assessment and plan: heparin SQ - Subjective Interval history: 36F evaluated at bedside. patient states that she is nauseous and is in a lot of pain from her surgery this morning. patient is anxious to go home and states that she does not want to go to rehab. she denies any further complaints today. - Constitutional Vitals: Temp Pulse Resp BP Pulse Ox 98.1 F 93 12 112/76 95 01/30/17 10:20 01/30/17 10:20 01/30/17 10:20 01/30/17 10:20 01/30/17 10:20 General appearance: Present: A&O X 3, no acute distress, answers questions appropriately - Head Head exam: Present: atraumatic, normocephalic - Neck Neck exam general surgery: Present: supple, trachea midline - Respiratory Respiratory exam: Present: CTAB - Cardiovascular Cardiovascular exam: Present: RRR, +S1, +S2 - GI/Abdominal GI/Abdominal exam: Present: distended, normal bowel sounds, soft, tenderness - Extremities Exam Additional comments: left lower extremity in cast from foot to knee. right lower extremity has EPCD in place - Neurological Exam Neurological exam: Present: alert, oriented X3, no focal deficits - Psychiatric Psychiatric exam: Present: normal affect, normal mood Internal Medicine: Result - Labs CBC & Chem 7: 01/30/17 04:17 01/30/17 04:17 Labs: Short CBC 01/30/17 Range/Units 04:17 WBC 9.1 (4.3-11.1) K/mcL Hgb 9.1 L D (11.5-15.4) g/dL Hct 27.7 L (35.3-44.9) % Plt Count 295 (140-400) K/mcL Neutrophils # 5.6 (1.6-8.9) K/mcL BMP 01/30/17 04:17 Sodium 144 D Potassium 3.2 L Chloride 108 Carbon Dioxide 29 BUN 39 H Creatinine 3.95 H Glucose 107 H Calcium 7.7 L - VTE Documentation of Mechanical Device: Intermittent pneumatic compression device Consult Discharge Plan - Plan Referrals: Alka Castanon DO [Primary Care Provider] - <Nichole Rai - Last Filed: 01/30/17 17:28> Date of Encounter: 01/30/17 - Constitutional Vitals: Temp Pulse Resp BP Pulse Ox 97.9 F 94 16 129/88 100 01/30/17 16:16 01/30/17 16:16 01/30/17 16:16 01/30/17 16:16 01/30/17 16:16 Internal Medicine: Result - Labs CBC & Chem 7: 01/30/17 04:17 01/30/17 04:17 Labs: Short CBC 01/30/17 Range/Units 04:17 WBC 9.1 (4.3-11.1) K/mcL Hgb 9.1 L D (11.5-15.4) g/dL Hct 27.7 L (35.3-44.9) % Plt Count 295 (140-400) K/mcL Neutrophils # 5.6 (1.6-8.9) K/mcL BMP 01/30/17 04:17 Sodium 144 D Potassium 3.2 L Chloride 108 Carbon Dioxide 29 BUN 39 H Creatinine 3.95 H Glucose 107 H Calcium 7.7 L - Attending Attestation I have seen and examined the patient independently. I have discussed with resident Dr. Lock regarding the management plan. Agree with the documentation. Improved the CK level. Worsening creatinine level but patient has good urine output. Continue bicarbonate drip. Nephrology and orthopedic consult appreciated.
--- NOTE | 2017-01-30 11:13 | Orthopedics Progress Note ---
Date of Encounter: 01/30/17 Time of Encounter: 11:11 - Assessment and Plan (1) Compartment syndrome of left lower extremity Current Visit: Yes Status: Acute I did discuss the diagnosis in detail with the patient. She does have significant left leg swelling and pain concerning for compartment syndrome. I did confirm this with compartment measurements including a superficial posterior compartment of 47 mmHg, a deep posterior compartment 24 mmHg, and anterior compartment 39 mmHg, and the lateral compartment 30 mmHg. My recommendation was for emergent 4 compartment fasciotomy of the left leg. The risks discussed included but were not limited to stiffness, bleeding, infection , blood clots, damage to neurovascular structures, tendons, ligaments, and bone. Also discussed was the risk of continued symptoms and possible need for further procedures. I did discuss the anesthesia risks including stroke, heart attack, and . I did discuss the reasonable, for stable postoperative course which may include multiple procedures for wound closure. I did express this to the patient in simple terms and she did wish to proceed and consent was obtained. We will proceed emergently to the operating room. Regarding the left fifth metatarsal fracture my recommendation will be for nonoperative management. Qualifiers: Qualified Code(s): T79.A22A - Traumatic compartment syndrome of left lower extremity, initial encounter Subjective Interval history: S: I expect the pain to the left leg. O: Afebrile and vital signs are stable Left leg with splint and dressing with VAC in place She cannot extend the toes She does demonstrate weak toe flexion The plantar surface of the foot does have altered sensation but is intact No sensation along the dorsal foot The toes are warm and well perfused A: Postoperative day 0 after partial wound closure with placement of VAC assisted closure device. Foot drop present preoperatively. Proximal fifth metatarsal fracture, nondisplaced P: Continue aggressive elevation and use of the wound VAC We will reattempt wound closure on Wednesday and if unable to be closed will place split thickness skin grafts harvested from the left thigh. Nonoperative management for the left fifth metatarsal fracture with nonweightbearing on the left lower extremity. It is impossible to tell at this point if she will regain any neurologic recovery but if so this could take months. Objective Vital signs: Vital Signs Temp Pulse Resp BP Pulse Ox 01/30/17 10:20 98.1 F 93 12 112/76 95 01/30/17 10:00 95 01/30/17 09:49 98.1 F 88 10 100/65 95 01/30/17 09:25 98.2 F 96 8 109/69 97 01/30/17 09:15 102 8 106/72 95 01/30/17 09:05 97 7 101/61 92 01/30/17 08:55 98.0 F 102 8 97/64 94 01/30/17 07:43 97 01/30/17 05:27 98.0 F 89 15 138/87 96 01/30/17 00:20 88 136/92 98 01/29/17 20:31 99 01/29/17 19:49 97.4 F L 89 13 138/95 99 01/29/17 15:55 97.6 F 84 16 110/71 95 Intake and Output 01/29/17 01/30/17 01/30/17 23:59 07:59 15:59 Intake Total 1000 / 1000 1999 / 1999 Output Total 100 / 100 2 / 2 Balance 1000 / 1000 1900 / 1900 -2 / -2 Intake: IV Fluids 1000 / 1000 1999 / 1999 0.9 % Sodium Chloride 1,000 ML 1000 / 1000 @ 3750 mls/hr IVC .Q16M ONE Rx# :[id number] Sodium Bicarbonate 150 MEQ In 1999 Dextrose 5% 1,000 ML @ 200 mls/ hr IVC .Q5H45M [facility] Rx#: [id number] Output: Estimated Blood Loss 2 / 2 Wound Drainage 100 / 100 0 / 0 Left Leg 100 / 100 0 / 0 Other: Weight 76 kg Patient Weight 01/30/17 23:59 Weight 76 kg - Labs CBC & BMP: 01/30/17 04:17 01/30/17 04:17 Labs: Abnormal lab results RBC 3.03 M/mcL (3.82-4.97) L 01/30/17 04:17 Hgb 9.1 g/dL (11.5-15.4) L D 01/30/17 04:17 Hct 27.7 % (35.3-44.9) L 01/30/17 04:17 ESR 39 mm/hr (0-15) H 01/28/17 04:47 Potassium 3.2 mEq/L (3.5-4.5) L 01/30/17 04:17 BUN 39 mg/dL (7-20) H 01/30/17 04:17 Creatinine 3.95 mg/dL (0.57-1.11) H 01/30/17 04:17 Est GFR ( Amer) 15 (> 60) L 01/30/17 04:17 Est GFR (Non-Af Amer) 13 (> 60) L 01/30/17 04:17 Glucose 107 mg/dL (70-99) H 01/30/17 04:17 Calculated Osmolality 308 (280-300) H 01/30/17 04:17 Uric Acid 8.5 mg/dL (2.6-6.0) H 01/28/17 06:02 Calcium 7.7 mg/dL (8.6-10.8) L 01/30/17 04:17 Creatine Kinase 40367 Units/L (29-168) H 01/30/17 04:17 C-Reactive Protein 250 mg/L (Less than 5) H 01/28/17 04:47 Ur Specimen Adequacy See below A 01/28/17 05:45 Urine Protein 100 mg/dL (Neg-Trace) H 01/28/17 05:45 Urine Blood Large (Negative) H 01/28/17 05:45 Ur Leukocyte Esterase Moderate (Negative) H 01/28/17 05:45 Urine Microscopic WBC 15-30 per hpf (0-3) H 01/28/17 05:45 Ur Squamous Epith Cells Many per lpf (None-Few) H 01/28/17 05:45 Urine Bacteria Many per hpf (None-Few) H 01/28/17 05:45 Ur Culture Indicated? YES (NO) A 01/28/17 05:45 Urine Opiates Screen Positive ng/mL (Brsbtu=215) H 01/28/17 05:45 U Benzodiazepines Scrn Positive ng/mL (Ynpvhr=233) H 01/28/17 05:45 U Marijuana (THC) Screen Positive ng/mL (Cutoff = 50) H 01/28/17 05:45 - VTE Documentation of Mechanical Device: Intermittent pneumatic compression device Consult Discharge Plan - Plan Referrals: Alka Castanon DO [Primary Care Provider] -
[2017-01-30] MEDS ORDERED: Ondansetron 4 MG/2 ML VIAL IVP SCH (12:00)
--- NOTE | 2017-01-30 12:25 | Anesthesia Evaluation Post Op ---
Date of Encounter: 01/30/17 Time of Encounter: 11:20 - Vital Signs Vital Signs: Selected Entries 01/30/17 11:20 Temperature 98.2 F Pulse Rate 94 Respiratory Rate 14 Blood Pressure 113/84 O2 Sat by Pulse Oximetry 98 - Lungs Lungs: Clear Ascult./Percussion - Airway Airway: Non-obstructed - Cardiovascular Regular Rate - Mental Status Mental Status: Sedated (states she's is comfortable when aroused, then falls back to sleep. Able to maintain O2 saturation.) - Nausea Vomiting Nausea Vomiting: Not Present - Hydration Hydration: Ice chips - Discharge PostOp Status: Transfer Patient to floor
--- NOTE | 2017-01-30 14:46 | Nephrology Progress Note ---
Date of Encounter: 01/30/17 Time of Encounter: 14:44 - Assessment and Plan (1) Acute kidney injury Current Visit: Yes Status: Acute the patint has nonoliguric acute kidney injury. Her AKA is secondary to rhabdomyolysis. Continue with hydration. I anticipate improvement in the next 1-2 days. No need for renal replacement therapy. Avoid nephrotoxins and adjust medications for renal function. (2) Compartment syndrome Current Visit: Yes Status: Acute Per orthopedic surgery. s/p surgery. Qualifiers: Compartment syndrome type: traumatic Encounter type: initial encounter Compartment syndrome location: lower extremity Laterality: left Qualified Code(s): T79.A22A - Traumatic compartment syndrome of left lower extremity, initial encounter (3) Rhabdomyolysis Current Visit: Yes Status: Acute Continue with hydration. CPK improving. Qualifiers: Rhabdomyolysis type: traumatic Encounter type: initial encounter Qualified Code(s): T79.6XXA - Traumatic ischemia of muscle, initial encounter (4) Chronic pancreatitis Current Visit: Yes Status: Chronic Per primary team. Qualifiers: Pancreatitis type: other Qualified Code(s): K86.1 - Other chronic pancreatitis (5) Polysubstance abuse Current Visit: Yes Status: Chronic Outpatient management. (6) Hypokalemia due to loss of potassium Current Visit: No Status: Acute Replace as needed. Subjective Principal diagnosis: SHAKEEL Interval history: Patient is sitting on a bedpan. She complains about her inability to urinate. I did offer he a Dumont catheter but she wants to wait until tomorrow. She has no other new complaint. She denies chest pain, shortness of breath. Her review of systems otherwise stable. ] Objective - Vital Signs Vital signs: Vital Signs Temp Pulse Resp BP Pulse Ox 01/30/17 11:20 98.2 F 94 14 113/84 98 01/30/17 10:20 98.1 F 93 12 112/76 95 01/30/17 10:00 95 01/30/17 09:49 98.1 F 88 10 100/65 95 01/30/17 09:25 98.2 F 96 8 109/69 97 01/30/17 09:15 102 8 106/72 95 01/30/17 09:05 97 7 101/61 92 01/30/17 08:55 98.0 F 102 8 97/64 94 01/30/17 07:43 97 01/30/17 05:27 98.0 F 89 15 138/87 96 01/30/17 00:20 88 136/92 98 01/29/17 20:31 99 01/29/17 19:49 97.4 F L 89 13 138/95 99 01/29/17 15:55 97.6 F 84 16 110/71 95 Intake and Output 01/29/17 01/30/17 01/30/17 23:59 07:59 15:59 Intake Total 1000 / 1000 1999 / 1999 Output Total 100 / 100 2 / 2 Balance 1000 / 1000 1900 / 1900 -2 / -2 Intake: IV Fluids 1000 / 999 1999 / 1999 0.9 % Sodium Chloride 1,000 ML 1000 / 999 @ 3750 mls/hr IVC .Q16M [facility] Rx# :[id number] Sodium Bicarbonate 150 MEQ In 1999 Dextrose 5% 1,000 ML @ 200 mls/ hr IVC .Q5H45M [facility] Rx#: [id number] Output: Estimated Blood Loss 2 / 2 Wound Drainage 100 / 100 0 / 0 Left Leg 100 / 100 0 / 0 Other: Weight 76 kg Patient Weight 01/30/17 23:59 Weight 76 kg - General Appearance General appearance: Present: well-developed, well-nourished EENT: Present: ATNC Neck: Present: supple Additional Comments: Her respirations are unlabored. Cardiology: Present: regular rate Integumentary: Present: warm and dry Neurologic: Present: alert and oriented x3 Musculoskeletal: Present: no cyanosis Psychiatric: Present: mood/affect appropriate - Lab 01/30/17 04:17 01/30/17 04:17 Most recent lab results Calcium 7.7 mg/dL (8.6-10.8) L 01/30/17 04:17 Magnesium 1.9 mg/dL (1.6-2.6) 01/30/17 04:17 - VTE Documentation of Mechanical Device: Intermittent pneumatic compression device Consult Discharge Plan - Plan Referrals: Alka Castanon DO [Primary Care Provider] -
[2017-01-30] MEDS: (Norgestimate-Ethinyl Estradiol [Sprintec 28 Day Tabl) PO SCH (15:23)
[2017-01-30] MEDS: Famotidine 20 MG TABLET PO SCH (20:44)
[2017-01-30] MEDS: traZODone 50 MG TABLET PO SCH (20:46)
[2017-01-31] MEDS: *HR* OxyCODONE Immed Rel 5 MG TABLET PO PRN ×2 (01:10→08:01)
[2017-01-31] MEDS: *HR* Morphine 2 MG/ML SYRINGE IVP PRN ×4 (04:48→21:40)
[2017-01-31] MEDS: *HR* Heparin 5,000 UNIT/ML VIAL SQ SCH ×2 (04:57→18:28)
[2017-01-31 05:42] LABS: Basophils % 0.3 %; Eosinophils % 0.4 %; Hemoglobin 9.6 g/dL (11.5-15.4); Immature Granulocytes % 0.4 % (0-4); Lymphocytes # 2.6 K/mcL (0.6-4.6); Lymphocytes % 23.4 %; Mean Corpuscular HGB Conc 33.1 g/dL (31.6-35.5); Mean Corpuscular Hemoglobin 29.8 pg (28.0-33.3); Mean Corpuscular Volume 90.1 fL (83.0-100.0); Mean Platelet Volume 10.3 fL (9.4-12.4); Monocytes # 0.8 K/mcL (0.0-1.3); Monocytes % 7.5 %; Neutrophils # 7.4 K/mcL (1.6-8.9); Platelet Count 320 K/mcL (140-400); Red Blood Count 3.22 M/mcL (3.82-4.97); Red Cell Distribution Width 13.9 % (11.5-14.5)
[2017-01-31 06:08] LABS: Alanine Aminotransferase 6 Units/L (0-55); Albumin 2.4 g/dL (3.5-5.0); Albumin/Globulin Ratio 0.8 (1.1-2.2); Alkaline Phosphatase 58 Units/L (38-126); Aspartate Amino Transferase 124 Units/L (5-34); BUN/Creatinine Ratio 10 (6-26); Blood Urea Nitrogen 38 mg/dL (7-20); Calcium 8.1 mg/dL (8.6-10.8); Carbon Dioxide 31 mEq/L (19-29); Chloride 101 mEq/L (98-109); Globulin 3.1 g/dL (2.4-3.5); Glucose 104 mg/dL (70-99); Osmolality,Calculated 303 (280-300); Potassium 3.5 mEq/L (3.5-4.5); Sodium 142 mEq/L (136-145); Total Protein 5.5 g/dL (6.0-8.3); eGFR For African Americans 16 (> 60); eGFR For Non-African Americans 13 (> 60)
[2017-01-31 06:09] LABS: Bilirubin,Total < 0.2 mg/dL (0.2-1.2); Creatine Kinase 7374 Units/L (29-168)
[2017-01-31] MEDS ORDERED: Sodium Bicarbonate 150 MEQ in D5% in Water 1,000 ML IVC SCH (07:30)
[2017-01-31] MEDS: lamoTRIgine 100 MG TABLET PO SCH ×2 (08:01→21:45)
[2017-01-31] MEDS: Gabapentin 400 MG CAPSULE PO SCH ×4 (08:01→22:47)
--- NOTE | 2017-01-31 08:59 | Orthopedics Progress Note ---
Date of Encounter: 01/31/17 Time of Encounter: 08:58 - Assessment and Plan (1) Compartment syndrome of left lower extremity Current Visit: Yes Status: Acute I did discuss the diagnosis in detail with the patient. She does have significant left leg swelling and pain concerning for compartment syndrome. I did confirm this with compartment measurements including a superficial posterior compartment of 47 mmHg, a deep posterior compartment 24 mmHg, and anterior compartment 39 mmHg, and the lateral compartment 30 mmHg. My recommendation was for emergent 4 compartment fasciotomy of the left leg. The risks discussed included but were not limited to stiffness, bleeding, infection , blood clots, damage to neurovascular structures, tendons, ligaments, and bone. Also discussed was the risk of continued symptoms and possible need for further procedures. I did discuss the anesthesia risks including stroke, heart attack, and . I did discuss the reasonable, for stable postoperative course which may include multiple procedures for wound closure. I did express this to the patient in simple terms and she did wish to proceed and consent was obtained. We will proceed emergently to the operating room. Regarding the left fifth metatarsal fracture my recommendation will be for nonoperative management. Qualifiers: Encounter type: initial encounter Qualified Code(s): T79.A22A - Traumatic compartment syndrome of left lower extremity, initial encounter Subjective Principal diagnosis: SHAKEEL Interval history: S: Expected pain to the left leg controlled with medication O: Afebrile and vital signs are stable Left leg with splint and dressing with VAC in place She cannot extend the toes She does demonstrate weak toe flexion The plantar surface of the foot does have altered sensation but is intact No sensation along the dorsal foot The toes are warm and well perfused A: Postoperative day 1 after partial wound closure with placement of VAC assisted closure device. Foot drop present preoperatively. Proximal fifth metatarsal fracture, nondisplaced P: Continue aggressive elevation and use of the wound VAC We will reattempt wound closure on Wednesday and if unable to be closed will place split thickness skin grafts harvested from the left thigh. Nonoperative management for the left fifth metatarsal fracture with nonweightbearing on the left lower extremity. It is impossible to tell at this point if she will regain any neurologic recovery but if so this could take months. Objective Vital signs: Vital Signs Temp Pulse Resp BP Pulse Ox 01/31/17 07:17 97.6 F 84 18 132/91 95 01/30/17 23:36 98.3 F 85 17 125/88 98 01/30/17 20:09 98.0 F 89 15 130/90 98 01/30/17 16:16 97.9 F 94 16 129/88 100 01/30/17 11:20 98.2 F 94 14 113/84 98 01/30/17 10:20 98.1 F 93 12 112/76 95 01/30/17 10:00 95 01/30/17 09:49 98.1 F 88 10 100/65 95 01/30/17 09:25 98.2 F 96 8 109/69 97 01/30/17 09:15 102 8 106/72 95 01/30/17 09:05 97 7 101/61 92 Intake and Output 01/30/17 01/31/17 01/31/17 23:59 07:59 15:59 Intake Total 1680 / 1680 1300 / 1300 Output Total 1999 25 / 25 Balance -320 / -320 1300 / 1300 -25 / -25 Intake: IV Fluids 1000 / 1000 1000 / 1000 Sodium Bicarbonate 150 MEQ In 1000 / 1000 1000 / 1000 Dextrose 5% 1,000 ML @ 200 mls/ hr IVC .Q5H45M JACQUELYN Rx#: [id number] Oral 680 / 680 300 / 300 Output: Urine 1999 Wound Drainage 25 / Left Calf 25 / Left Leg 0 / 0 Other: Meal Dinner Percent of Meal Consumed 20% # Voids 1 Weight 78.2 kg Patient Weight 01/31/17 23:59 Weight 78.2 kg - Labs CBC & BMP: 01/31/17 04:50 01/31/17 04:50 Labs: Abnormal lab results RBC 3.22 M/mcL (3.82-4.97) L 01/31/17 04:50 Hgb 9.6 g/dL (11.5-15.4) L 01/31/17 04:50 Hct 29.0 % (35.3-44.9) L 01/31/17 04:50 ESR 39 mm/hr (0-15) H 01/28/17 04:47 Carbon Dioxide 31 mEq/L (19-29) H 01/31/17 04:50 BUN 38 mg/dL (7-20) H 01/31/17 04:50 Creatinine 3.83 mg/dL (0.57-1.11) H 01/31/17 04:50 Est GFR ( Amer) 16 (> 60) L 01/31/17 04:50 Est GFR (Non-Af Amer) 13 (> 60) L 01/31/17 04:50 Glucose 104 mg/dL (70-99) H 01/31/17 04:50 Calculated Osmolality 303 (280-300) H 01/31/17 04:50 Uric Acid 8.5 mg/dL (2.6-6.0) H 01/28/17 06:02 Calcium 8.1 mg/dL (8.6-10.8) L 01/31/17 04:50 Total Bilirubin < 0.2 mg/dL (0.2-1.2) L 01/31/17 04:50 AST 124 Units/L (5-34) H 01/31/17 04:50 Creatine Kinase 7374 Units/L (29-168) H 01/31/17 04:50 C-Reactive Protein 250 mg/L (Less than 5) H 01/28/17 04:47 Serum Total Protein 5.5 g/dL (6.0-8.3) L 01/31/17 04:50 Albumin 2.4 g/dL (3.5-5.0) L 01/31/17 04:50 Albumin/Globulin Ratio 0.8 (1.1-2.2) L 01/31/17 04:50 Ur Specimen Adequacy See below A 01/28/17 05:45 Urine Protein 100 mg/dL (Neg-Trace) H 01/28/17 05:45 Urine Blood Large (Negative) H 01/28/17 05:45 Ur Leukocyte Esterase Moderate (Negative) H 01/28/17 05:45 Urine Microscopic WBC 15-30 per hpf (0-3) H 01/28/17 05:45 Ur Squamous Epith Cells Many per lpf (None-Few) H 01/28/17 05:45 Urine Bacteria Many per hpf (None-Few) H 01/28/17 05:45 Ur Culture Indicated? YES (NO) A 01/28/17 05:45 Urine Opiates Screen Positive ng/mL (Cxprkc=952) H 01/28/17 05:45 U Benzodiazepines Scrn Positive ng/mL (Rerfyx=586) H 01/28/17 05:45 U Marijuana (THC) Screen Positive ng/mL (Cutoff = 50) H 01/28/17 05:45 - VTE Documentation of Mechanical Device: Intermittent pneumatic compression device Consult Discharge Plan - Plan Referrals: Alka Castanon DO [Primary Care Provider] -
[2017-01-31] MEDS: (Norgestimate-Ethinyl Estradiol [Sprintec 28 Day Tabl) PO SCH (10:22)
[2017-01-31] MEDS: diazePAM 10 MG TABLET PO SCH ×3 (10:22→22:49)
--- NOTE | 2017-01-31 11:53 | Internal Med Progress Note ---
<Khalif Lock - Last Filed: 01/31/17 11:49> Date of Encounter: 01/31/17 Time of Encounter: 11:49 - Assessment and plan (1) Compartment syndrome Current Visit: Yes Status: Acute Assessment and plan: Patient presented with acute progressive left leg pain, swelling and noted to have rhabdomyolysis, compartment syndrome with associated fifth metatarsal fracture. Orthopedic surgery was consulted, patient underwent 4-compartment fasciotomy. Plan: Continue pain control: Morphine along with PO Percocet. Local wound care and wound vac management per Orthopedic surgery. PT/OT evaluation. patient went to OR to try to close her wound, but could not due to excess swelling. will continue to follow ortho recs. back to OR on wednesday for closure. Qualifiers: Compartment syndrome type: traumatic Encounter type: initial encounter Compartment syndrome location: lower extremity Laterality: left Qualified Code(s): T79.A22A - Traumatic compartment syndrome of left lower extremity, initial encounter (2) Rhabdomyolysis Current Visit: Yes Status: Acute Assessment and plan: likely related to left 5th metatarsal fracture. Serum CK improving; continue IV hydration; renal function noted to be worsening. Plan: appreciate nephro recs continue D5 with bicarb per nephro Qualifiers: Rhabdomyolysis type: traumatic Encounter type: initial encounter Qualified Code(s): T79.6XXA - Traumatic ischemia of muscle, initial encounter (3) Acute kidney injury Current Visit: Yes Status: Acute Assessment and plan: likely related to rhabdomyolysis; serum creatinine noted to be worsening, 3.95 today. Serum creatinine kinase improving. Continue IV hydration and monitor urine output closely. Appreciate nephro recs. Urine culture shows no significant bacterial growth. (4) Chronic pancreatitis Current Visit: Yes Status: Chronic Assessment and plan: continue pancreatic enzyme supplements; Qualifiers: Pancreatitis type: other Qualified Code(s): K86.1 - Other chronic pancreatitis (5) Closed nondisplaced fracture of fifth left metatarsal bone Current Visit: Yes Status: Acute Assessment and plan: traumatic. Orthopedics consult appreciated; nonoperative management with non- weight bearing, pain control, PT/OT; Qualifiers: Encounter type: initial encounter Qualified Code(s): S92.355A - Nondisplaced fracture of fifth metatarsal bone, left foot, initial encounter for closed fracture (6) Depression Current Visit: Yes Status: Chronic Assessment and plan: continue home elavil, buspar. Qualifiers: Depression Type: major depressive disorder Major depression recurrence: recurrent Active/Remission status: remission status unspecified Qualified Code(s): F33.9 - Major depressive disorder, recurrent, unspecified (7) Polysubstance abuse Current Visit: Yes Status: Chronic Assessment and plan: Urine drug screen positive for Marijuana, BDZ, opiates; social services counselor consult for safe discharge; (8) DVT prophylaxis Current Visit: Yes Status: Acute Assessment and plan: SQ heparin discontinued due to extensive bleeding at the injection site. will continue with EPCD - Subjective Interval history: 36F evaluated at bedside. patient states that she has nausea and pain. she denies any further issues today - Constitutional Vitals: Temp Pulse Resp BP Pulse Ox 98.0 F 99 18 117/85 94 01/31/17 11:32 01/31/17 11:32 01/31/17 11:32 01/31/17 11:32 01/31/17 11:32 General appearance: Present: A&O X 3 (d), no acute distress, answers questions appropriately Exam: drowsy - Head Head exam: Present: atraumatic, normocephalic - Neck Neck exam general surgery: Present: supple, trachea midline - Respiratory Respiratory exam: Present: CTAB - Cardiovascular Cardiovascular exam: Present: RRR, +S1, +S2 - GI/Abdominal GI/Abdominal exam: Present: normal bowel sounds, soft. Absent: distended, tenderness - Extremities Exam Extremities exam: Absent: cyanotic, pedal edema Additional comments: left lower extremity wrapped in cast. right lower extremity in EPCD - Neurological Exam Neurological exam: Present: alert, oriented X3, no focal deficits - Psychiatric Psychiatric exam: Present: anxious Internal Medicine: Result - Labs CBC & Chem 7: 01/31/17 04:50 01/31/17 04:50 Labs: Short CBC 01/31/17 Range/Units 04:50 WBC 10.9 (4.3-11.1) K/mcL Hgb 9.6 L (11.5-15.4) g/dL Hct 29.0 L (35.3-44.9) % Plt Count 320 (140-400) K/mcL Neutrophils # 7.4 (1.6-8.9) K/mcL BMP 01/31/17 04:50 Sodium 142 Potassium 3.5 Chloride 101 Carbon Dioxide 31 H BUN 38 H Creatinine 3.83 H Glucose 104 H Calcium 8.1 L Liver Function 01/31/17 Range/Units 04:50 Total Bilirubin < 0.2 L (0.2-1.2) mg/dL AST 124 H (5-34) Units/L ALT 6 (0-55) Units/L Alkaline Phosphatase 58 (38-126) Units/L Albumin 2.4 L (3.5-5.0) g/dL - VTE Documentation of Mechanical Device: Intermittent pneumatic compression device Consult Discharge Plan - Plan Referrals: Alka Castanon DO [Primary Care Provider] - <Nichole Rai - Last Filed: 01/31/17 17:32> Date of Encounter: 01/31/17 - Constitutional Vitals: Temp Pulse Resp BP Pulse Ox 98.7 F 103 18 138/93 93 01/31/17 17:01 01/31/17 17:01 01/31/17 17:01 01/31/17 17:01 01/31/17 17:01 Internal Medicine: Result - Labs CBC & Chem 7: 01/31/17 04:50 01/31/17 04:50 Labs: Short CBC 01/31/17 Range/Units 04:50 WBC 10.9 (4.3-11.1) K/mcL Hgb 9.6 L (11.5-15.4) g/dL Hct 29.0 L (35.3-44.9) % Plt Count 320 (140-400) K/mcL Neutrophils # 7.4 (1.6-8.9) K/mcL BMP 01/31/17 04:50 Sodium 142 Potassium 3.5 Chloride 101 Carbon Dioxide 31 H BUN 38 H Creatinine 3.83 H Glucose 104 H Calcium 8.1 L Liver Function 01/31/17 Range/Units 04:50 Total Bilirubin < 0.2 L (0.2-1.2) mg/dL AST 124 H (5-34) Units/L ALT 6 (0-55) Units/L Alkaline Phosphatase 58 (38-126) Units/L Albumin 2.4 L (3.5-5.0) g/dL - Attending Attestation I have seen and examined patient independently. I have discussed with resident DR Lock regarding the management plan. Agree with the documentation. Patient still complain pain. She has improved CK level. Continue IV fluid. Closely monitor electrolytes, renal function and CK level. Appreciate nephro and orthopedic input.
--- NOTE | 2017-01-31 12:25 | Nephrology Progress Note ---
Date of Encounter: 01/31/17 Time of Encounter: 12:22 - Assessment and Plan (1) Acute kidney injury Current Visit: Yes Status: Acute the patint has nonoliguric acute kidney injury. Her SHAKEEL is secondary to rhabdomyolysis. Continue with hydration. her renal function has stabilized. No need for renal replacement therapy. Avoid nephrotoxins and adjust medications for renal function. (2) Compartment syndrome Current Visit: Yes Status: Acute Per orthopedic surgery. s/p surgery. Qualifiers: Compartment syndrome type: traumatic Encounter type: initial encounter Compartment syndrome location: lower extremity Laterality: left Qualified Code(s): T79.A22A - Traumatic compartment syndrome of left lower extremity, initial encounter (3) Rhabdomyolysis Current Visit: Yes Status: Acute Continue with hydration. CPK improving. Qualifiers: Rhabdomyolysis type: traumatic Encounter type: initial encounter Qualified Code(s): T79.6XXA - Traumatic ischemia of muscle, initial encounter (4) Chronic pancreatitis Current Visit: Yes Status: Chronic Per primary team. Qualifiers: Pancreatitis type: other Qualified Code(s): K86.1 - Other chronic pancreatitis (5) Polysubstance abuse Current Visit: Yes Status: Chronic Outpatient management. (6) Hypokalemia due to loss of potassium Current Visit: No Status: Acute Replace as needed. Subjective Principal diagnosis: SHAKEEL Interval history: Patient seen. She complains of pain. Her review of systems otherwise stable. ] Objective - Vital Signs Vital signs: Vital Signs Temp Pulse Resp BP Pulse Ox 01/31/17 11:32 98.0 F 99 18 117/85 94 01/31/17 07:17 97.6 F 84 18 132/91 95 01/30/17 23:36 98.3 F 85 17 125/88 98 01/30/17 20:09 98.0 F 89 15 130/90 98 01/30/17 16:16 97.9 F 94 16 129/88 100 Intake and Output 01/30/17 01/31/17 01/31/17 23:59 07:59 15:59 Intake Total 1680 / 1680 1300 / 1300 Output Total 1999 25 / 25 Balance -320 / -320 1300 / 1300 -25 / -25 Intake: IV Fluids 1000 / 1000 1000 / 1000 Sodium Bicarbonate 150 MEQ In 1000 / 1000 1000 / 1000 Dextrose 5% 1,000 ML @ 200 mls/ hr IVC .Q5H45M JACQUELYN Rx#: [id number] Oral 680 / 680 300 / 300 Output: Urine 1999 Wound Drainage 25 / 25 Left Calf 25 / 25 Left Leg 0 / 0 Other: Meal Dinner Percent of Meal Consumed 20% # Voids 1 Weight 78.2 kg Patient Weight 01/31/17 23:59 Weight 78.2 kg - General Appearance General appearance: Present: well-developed, well-nourished EENT: Present: ATNC Additional Comments: Respirations are not labored. Cardiology: Present: regular rate Neurologic: Present: alert and oriented x3 Psychiatric: Present: mood/affect appropriate - Lab 01/31/17 04:50 01/31/17 04:50 Most recent lab results Calcium 8.1 mg/dL (8.6-10.8) L 01/31/17 04:50 Magnesium 1.9 mg/dL (1.6-2.6) 01/30/17 04:17 - VTE Documentation of Mechanical Device: Intermittent pneumatic compression device Consult Discharge Plan - Plan Referrals: Alka Castanon DO [Primary Care Provider] -
[2017-01-31] MEDS: 0.9 % Sodium Chloride 1,000 ML IVC SCH ×2 (13:36→22:02)
[2017-01-31] MEDS: *HR* OxyCODONE/APAP 5/325 TABLET PO PRN (13:44)
[2017-01-31] MEDS: tiZANidine 4 MG TABLET PO PRN (18:28)
[2017-01-31] MEDS: Famotidine 20 MG TABLET PO SCH (21:44)
[2017-01-31] MEDS: traZODone 50 MG TABLET PO SCH (22:45)
[2017-02-01] MEDS: *HR* Morphine 2 MG/ML SYRINGE IVP PRN ×3 (02:26→20:28)
[2017-02-01] MEDS: tiZANidine 4 MG TABLET PO PRN (04:50)
[2017-02-01] MEDS: *HR* Heparin 5,000 UNIT/ML VIAL SQ SCH ×2 (04:51→16:54)
[2017-02-01 05:19] LABS: Basophils # 0.1 K/mcL (0.0-0.2); Basophils % 0.5 %; Eosinophils # 0.3 K/mcL (0.0-0.6); Eosinophils % 2.3 %; Hemoglobin 9.1 g/dL (11.5-15.4); Immature Granulocytes % 0.8 % (0-4); Lymphocytes # 3.3 K/mcL (0.6-4.6); Lymphocytes % 23.1 %; Mean Corpuscular HGB Conc 32.5 g/dL (31.6-35.5); Mean Corpuscular Hemoglobin 29.7 pg (28.0-33.3); Mean Corpuscular Volume 91.5 fL (83.0-100.0); Mean Platelet Volume 9.8 fL (9.4-12.4); Monocytes # 0.6 K/mcL (0.0-1.3); Monocytes % 4.2 %; Neutrophils # 9.8 K/mcL (1.6-8.9); Platelet Count 270 K/mcL (140-400); Red Blood Count 3.06 M/mcL (3.82-4.97); Segmented Neutrophils % 69.1 %
[2017-02-01 05:26] LABS: Calcium 7.8 mg/dL (8.6-10.8); Potassium 3.1 mEq/L (3.5-4.5)
--- NOTE | 2017-02-01 07:31 | Orthopedics Progress Note ---
Date of Encounter: 02/01/17 Time of Encounter: 07:30 - Assessment and Plan (1) Compartment syndrome of left lower extremity Current Visit: Yes Status: Acute I did discuss the diagnosis in detail with the patient. She does have significant left leg swelling and pain concerning for compartment syndrome. I did confirm this with compartment measurements including a superficial posterior compartment of 47 mmHg, a deep posterior compartment 24 mmHg, and anterior compartment 39 mmHg, and the lateral compartment 30 mmHg. My recommendation was for emergent 4 compartment fasciotomy of the left leg. The risks discussed included but were not limited to stiffness, bleeding, infection , blood clots, damage to neurovascular structures, tendons, ligaments, and bone. Also discussed was the risk of continued symptoms and possible need for further procedures. I did discuss the anesthesia risks including stroke, heart attack, and . I did discuss the reasonable, for stable postoperative course which may include multiple procedures for wound closure. I did express this to the patient in simple terms and she did wish to proceed and consent was obtained. We will proceed emergently to the operating room. Regarding the left fifth metatarsal fracture my recommendation will be for nonoperative management. Qualifiers: Encounter type: initial encounter Qualified Code(s): T79.A22A - Traumatic compartment syndrome of left lower extremity, initial encounter Subjective Principal diagnosis: SHAKEEL Interval history: S: Pain controlled to the left leg Has been elevating all night. O: Afebrile and vital signs are stable Left leg with splint and dressing with VAC in place; about 30 mL serosanginous output. Swelling has gone down, and the skin feels more mobile. She cannot extend the toes She does demonstrate weak toe flexion The plantar surface of the foot does have altered sensation but is intact No sensation along the dorsal foot The toes are warm and well perfused A: Postoperative day 2 after partial wound closure with placement of VAC assisted closure device. Foot drop present preoperatively. Proximal fifth metatarsal fracture, nondisplaced P: Continue aggressive elevation and use of the wound VAC We will reattempt wound closure on Wednesday and if unable to be closed will place split thickness skin grafts harvested from the left thigh. Nonoperative management for the left fifth metatarsal fracture with nonweightbearing on the left lower extremity. It is impossible to tell at this point if she will regain any neurologic recovery but if so this could take months. Objective Vital signs: Vital Signs Temp Pulse Resp BP Pulse Ox 02/01/17 06:52 98.5 F 76 18 104/68 95 01/31/17 23:16 98.1 F 80 16 99/66 94 01/31/17 19:27 98.8 F 82 16 110/79 94 01/31/17 17:01 98.7 F 103 18 138/93 93 01/31/17 11:32 98.0 F 99 18 117/85 94 Intake and Output 01/31/17 01/31/17 02/01/17 15:59 23:59 07:59 Intake Total 1000 / 1000 1000 / 1000 Output Total 25 / 25 600 / 600 550 / 550 Balance -25 / -25 400 / 400 450 / 450 Intake: IV Fluids 1000 / 1000 1000 / 1000 0.9 % Sodium Chloride 1,000 ML 1000 / 1000 1000 / 1000 @ 125 mls/hr IVC .Q8H JACQUELYN Rx#: [id number] Output: Urine 600 / 600 550 / 550 Wound Drainage 25 / 25 0 / 0 Left Calf 25 / 25 0 / 0 Left Leg 0 / 0 Other: # Voids 1 - Labs CBC & BMP: 02/01/17 04:57 02/01/17 04:57 Labs: Abnormal lab results WBC 14.1 K/mcL (4.3-11.1) H 02/01/17 04:57 RBC 3.06 M/mcL (3.82-4.97) L 02/01/17 04:57 Hgb 9.1 g/dL (11.5-15.4) L 02/01/17 04:57 Hct 28.0 % (35.3-44.9) L 02/01/17 04:57 Neutrophils # 9.8 K/mcL (1.6-8.9) H 02/01/17 04:57 ESR 39 mm/hr (0-15) H 01/28/17 04:47 Potassium 3.1 mEq/L (3.5-4.5) L 02/01/17 04:57 Carbon Dioxide 36 mEq/L (19-29) H 02/01/17 04:57 BUN 39 mg/dL (7-20) H 02/01/17 04:57 Creatinine 3.77 mg/dL (0.57-1.11) H 02/01/17 04:57 Est GFR ( Amer) 16 (> 60) L 02/01/17 04:57 Est GFR (Non-Af Amer) 13 (> 60) L 02/01/17 04:57 Calculated Osmolality 307 (280-300) H 02/01/17 04:57 Uric Acid 8.5 mg/dL (2.6-6.0) H 01/28/17 06:02 Calcium 7.8 mg/dL (8.6-10.8) L 02/01/17 04:57 Total Bilirubin < 0.2 mg/dL (0.2-1.2) L 01/31/17 04:50 AST 124 Units/L (5-34) H 01/31/17 04:50 Creatine Kinase 3559 Units/L (29-168) H 02/01/17 04:57 C-Reactive Protein 250 mg/L (Less than 5) H 01/28/17 04:47 Serum Total Protein 5.5 g/dL (6.0-8.3) L 01/31/17 04:50 Albumin 2.4 g/dL (3.5-5.0) L 01/31/17 04:50 Albumin/Globulin Ratio 0.8 (1.1-2.2) L 01/31/17 04:50 Ur Specimen Adequacy See below A 01/28/17 05:45 Urine Protein 100 mg/dL (Neg-Trace) H 01/28/17 05:45 Urine Blood Large (Negative) H 01/28/17 05:45 Ur Leukocyte Esterase Moderate (Negative) H 01/28/17 05:45 Urine Microscopic WBC 15-30 per hpf (0-3) H 01/28/17 05:45 Ur Squamous Epith Cells Many per lpf (None-Few) H 01/28/17 05:45 Urine Bacteria Many per hpf (None-Few) H 01/28/17 05:45 Ur Culture Indicated? YES (NO) A 01/28/17 05:45 Urine Opiates Screen Positive ng/mL (Dvgfyf=684) H 01/28/17 05:45 U Benzodiazepines Scrn Positive ng/mL (Ypbggg=542) H 01/28/17 05:45 U Marijuana (THC) Screen Positive ng/mL (Cutoff = 50) H 01/28/17 05:45 - VTE Documentation of Mechanical Device: Intermittent pneumatic compression device Consult Discharge Plan - Plan Referrals: Alka Castanon DO [Primary Care Provider] -
[2017-02-01] MEDS: diazePAM 10 MG TABLET PO SCH ×2 (09:05→20:27)
[2017-02-01] MEDS: lamoTRIgine 100 MG TABLET PO SCH ×2 (09:05→20:27)
[2017-02-01] MEDS: Gabapentin 400 MG CAPSULE PO SCH ×3 (09:06→20:27)
[2017-02-01] MEDS: (Norgestimate-Ethinyl Estradiol [Sprintec 28 Day Tabl) PO SCH (09:06)
[2017-02-01] MEDS: D5% in 0.45% NACL 1,000 ML IVC SCH (11:45)
[2017-02-01] MEDS: *HR* OxyCODONE/APAP 5/325 TABLET PO PRN (14:05)
--- NOTE | 2017-02-01 14:15 | Nephrology Progress Note ---
Date of Encounter: 02/01/17 Time of Encounter: 14:11 - Assessment and Plan (1) Acute kidney injury Current Visit: Yes Status: Acute Acute kidney injury Secondary rhabdomyolysis. Current creatinine 3.77, GFR 13. Baseline creatinine 0.80 with GFR greater than 60. - Poor urinary output yesterday was 600 mL's, today 1400 mL's thus far. Plan: - Continue IV fluids D5 half-normal saline- continue renal perfusion - Avoid nephrotoxic medications, renally dose antibiotics - strict intake and output monitoring, daily weights - monitor renal function with a.m. labs (2) Rhabdomyolysis Current Visit: Yes Status: Acute Rhabdomyolysis secondary to compartment syndrome. Status post fasciotomy. Creatinine kinase 3556 down from greater than 41,000. - Continue IV fluids: D5 half-normal saline at 75 mL to continue improving renal clearance. Qualifiers: Rhabdomyolysis type: traumatic Encounter type: initial encounter Qualified Code(s): T79.6XXA - Traumatic ischemia of muscle, initial encounter (3) Compartment syndrome of left lower extremity Current Visit: Yes Status: Acute Patient presented to hospital with left lower extremity swelling found to have compartment syndrome and underwent emergent fasciotomy in multiple compartments. - Status post fasciotomy - Management per primary team - Compartment syndrome Likely the cause of her rhabdomyolysis. Qualifiers: Encounter type: initial encounter Qualified Code(s): T79.A22A - Traumatic compartment syndrome of left lower extremity, initial encounter (4) Nondisplaced fracture of fifth left metatarsal bone Current Visit: Yes Status: Acute Management per primary team. Qualifiers: Encounter type: initial encounter Fracture type: closed Qualified Code(s) : S92.355A - Nondisplaced fracture of fifth metatarsal bone, left foot, initial encounter for closed fracture Subjective Principal diagnosis: SHAKEEL Interval history: Mrs. Calle 36-year-old female has been seen and evaluated at patient bedside this morning. She complains of pain in her left lower extremity and feels that her pain needs to be better controlled. She does continue to have loss of sensation in her toes but it is improved since postoperatively. She said she can only flex her toes but not extend them. She denies any fevers, chills, sweating, nausea vomiting diarrhea constipation chest pain or shortness of breath. After discussion regarding her renal function she became tearful understands that she is still in the recovery phase. Objective - Vital Signs Vital signs: Vital Signs Temp Pulse Resp BP Pulse Ox 02/01/17 09:00 133/96 02/01/17 06:52 98.5 F 76 18 104/68 95 01/31/17 23:16 98.1 F 80 16 99/66 94 01/31/17 19:27 98.8 F 82 16 110/79 94 01/31/17 17:01 98.7 F 103 18 138/93 93 Intake and Output 01/31/17 02/01/17 02/01/17 23:59 07:59 15:59 Intake Total 1000 / 1000 1000 / 1000 350 / 350 Output Total 600 / 600 550 / 550 850 / 850 Balance 400 / 400 450 / 450 -500 / -500 Intake: IV Fluids 1000 / 1000 1000 / 1000 0.9 % Sodium Chloride 1,000 ML 1000 / 1000 1000 / 1000 @ 125 mls/hr IVC .Q8H [facility] Rx#: [id number] Oral 350 / 350 Output: Urine 600 / 600 550 / 550 850 / 850 Wound Drainage 0 / 0 Left Calf 0 / 0 Other: Meal Breakfast Percent of Meal Consumed 60% - General Appearance Exam: General: Patient lethargic, awake, oriented 3, interactive, in no acute distress HEENT: Normocephalic, atraumatic, oral mucosa moist, edentulous, neck supple trachea midline no palpable lymphadenopathy, no thyromegaly. Chest: Symmetric bilateral correlating with respiratory effort, effort nonlabored. Cardiac: Regular rate and rhythm, positive S1 and S2. no bruits appreciated bilateral carotids, Radial pulses 2+ bilateral. Respiratory: Clear to auscultation all lung zazueta Abdomen: Soft, nontender, positive bowel sounds, no palpable masses appreciated on examination Extremities: Patient able to move bilateral upper extremities without weakness, patient retains sensation and motor function right lower extremity. Left lower extremity is wrapped post surgery. Toes are exposed demonstrate appropriate circulation and warm, able to actively flex toes, sensation greater in the great toe, diminished in remaining four toes. Neurologic: Face symmetric, as mentioned above - Lab 02/01/17 04:57 02/01/17 04:57 Most recent lab results Calcium 7.8 mg/dL (8.6-10.8) L 02/01/17 04:57 Magnesium 1.9 mg/dL (1.6-2.6) 01/30/17 04:17 - VTE Documentation of Mechanical Device: Intermittent pneumatic compression device Consult Discharge Plan - Plan Referrals: Alka Castanon DO [Primary Care Provider] -
--- NOTE | 2017-02-01 15:32 | Internal Med Progress Note ---
<Alka Castanon - Last Filed: 02/01/17 15:22> Date of Encounter: 02/01/17 Time of Encounter: 15:00 - Assessment and plan (1) Compartment syndrome Current Visit: Yes Status: Acute Assessment and plan: Patient presented with acute progressive left leg pain, swelling and noted to have rhabdomyolysis, compartment syndrome with associated fifth metatarsal fracture Orthopedic surgery was consulted, patient underwent 4-compartment fasciotomy s/ p day 2 Plan: -ortho will reattempt wound closure tomorrow with placement of VAC assisted closure device -Continue pain control: IV Morphine along with PO Percocet -Local wound care and wound vac management per Orthopedic surgery -PT/OT evaluation -elevation of leg Qualifiers: Compartment syndrome type: traumatic Encounter type: initial encounter Compartment syndrome location: lower extremity Laterality: left Qualified Code(s): T79.A22A - Traumatic compartment syndrome of left lower extremity, initial encounter (2) Rhabdomyolysis Current Visit: Yes Status: Acute Assessment and plan: Most likely related to left 5th metatarsal fracture Serum CK improving creatinine improving, 3.77 -continue IV fluids D5 with bicarb per nephro -nephrology following, appreciate recommendations -avoid nephrotoxic agents -Monitor intake and output Qualifiers: Rhabdomyolysis type: traumatic Encounter type: initial encounter Qualified Code(s): T79.6XXA - Traumatic ischemia of muscle, initial encounter (3) Acute kidney injury Current Visit: Yes Status: Acute Assessment and plan: Most likely related to rhabdomyolysis; serum creatinine minimally improving, 3.77 today Serum creatinine kinase improving -Continue IV fluids -monitor urine output closely -Nephrology following, appreciate recommendations -Urine culture shows no significant bacterial growth -monitor renal function -avoid nephrotoxic agents (4) Closed nondisplaced fracture of fifth left metatarsal bone Current Visit: Yes Status: Acute Assessment and plan: traumatic Orthopedics consult appreciated- nonoperative management with non-weight bearing , pain control, PT/OT Qualifiers: Encounter type: initial encounter Qualified Code(s): S92.355A - Nondisplaced fracture of fifth metatarsal bone, left foot, initial encounter for closed fracture (5) Chronic pancreatitis Current Visit: Yes Status: Chronic Assessment and plan: Patient has a history of chronic pancreatitis -continue pancreatic enzyme supplements Qualifiers: Pancreatitis type: other Qualified Code(s): K86.1 - Other chronic pancreatitis (6) Depression Current Visit: Yes Status: Chronic Assessment and plan: continue home evan kamlajolynn Qualifiers: Depression Type: major depressive disorder Major depression recurrence: recurrent Active/Remission status: remission status unspecified Qualified Code(s): F33.9 - Major depressive disorder, recurrent, unspecified (7) Polysubstance abuse Current Visit: Yes Status: Chronic Assessment and plan: Urine drug screen positive for Marijuana, BDZ, opiates; social media content specialist consult for safe discharge (8) DVT prophylaxis Current Visit: Yes Status: Acute Assessment and plan: SQ heparin discontinued due to extensive bleeding at the injection site -continue with EPCD - Subjective Interval history: Laying down in bed comfortably watching television and talking on hospital phone her nurse is concerned with the patient's request for increase in pain medication and the fact that the patient requests her next dose pain medication exactly on the dot of when it is due patient asked me to increase her pain medication and was upset when I told her we could not increase it due to CKD she denied fever, chills, chest pain, shortness of breath - Constitutional Vitals: Temp Pulse Resp BP Pulse Ox 98.5 F 76 18 133/96 95 02/01/17 06:52 02/01/17 06:52 02/01/17 06:52 02/01/17 09:00 02/01/17 06:52 General appearance: Present: A&O X 3 (d), no acute distress, answers questions appropriately Exam: Gen.: Vitals noted. No acute distress. AAOx3 HEENT: oropharynx clear, Normocephalic, atraumatic Cardiac: RRR, no murmur, +S1/S2 Pulmonary: CTA bilaterally, no wheezes, rales or rhonchi, equal chest expansion Abdomen: soft, nontender, Bowel sounds noted, no guarding Extremities: nontender right calf, no cyanosis or clubbing Neuro: A&Ox3, moves all extremities, sensation intact bilaterally and lower extremities Psych: Appropriate mood and behavior Internal Medicine: Result - Labs CBC & Chem 7: 02/01/17 04:57 02/01/17 04:57 Labs: Short CBC 02/01/17 Range/Units 04:57 WBC 14.1 H (4.3-11.1) K/mcL Hgb 9.1 L (11.5-15.4) g/dL Hct 28.0 L (35.3-44.9) % Plt Count 270 (140-400) K/mcL Neutrophils # 9.8 H (1.6-8.9) K/mcL BMP 02/01/17 04:57 Sodium 144 Potassium 3.1 L Chloride 100 Carbon Dioxide 36 H BUN 39 H Creatinine 3.77 H Glucose 89 Calcium 7.8 L - Impressions Impressions Chest X-Ray 02/01/17 08:13 IMPRESSION: Normal chest x-ray D/ / Hong Patel MD / Hong Patel MD Interpreting Provider: Hong Patel MD - VTE Documentation of Mechanical Device: Intermittent pneumatic compression device Consult Discharge Plan - Plan Referrals: Alka Castanon DO [Primary Care Provider] - <Nichole Rai - Last Filed: 02/01/17 17:16> Date of Encounter: 02/01/17 - Constitutional Vitals: Temp Pulse Resp BP Pulse Ox 98.5 F 76 18 133/96 95 02/01/17 06:52 02/01/17 06:52 02/01/17 06:52 02/01/17 09:00 02/01/17 06:52 Internal Medicine: Result - Labs CBC & Chem 7: 02/01/17 04:57 02/01/17 04:57 Labs: Short CBC 02/01/17 Range/Units 04:57 WBC 14.1 H (4.3-11.1) K/mcL Hgb 9.1 L (11.5-15.4) g/dL Hct 28.0 L (35.3-44.9) % Plt Count 270 (140-400) K/mcL Neutrophils # 9.8 H (1.6-8.9) K/mcL BMP 02/01/17 04:57 Sodium 144 Potassium 3.1 L Chloride 100 Carbon Dioxide 36 H BUN 39 H Creatinine 3.77 H Glucose 89 Calcium 7.8 L - Impressions Impressions Chest X-Ray 02/01/17 08:13 IMPRESSION: Normal chest x-ray D/ / Hong Patel MD / Hong Patel MD Interpreting Provider: Hong Patel MD - Attending Attestation I saw and examined the patient independently. I have discussed with resident Dr Castanon regarding the management plan. Agree with the documentation. Patient has no fever. Always complaining of pain and ask for pain medication. Vital signs stable. Slightly elevated WBC, chest x-ray ordered, negative. Patient denies chills, abdominal pain, urinating symptoms, or diarrhea. Renal function slightly improved. Nephrology consult on case, recommended continue IV fluid. Will continue closely monitor patient. Orthopedic plan to close the wound tomorrow. Restarted subcutaneous heparin because the bleeding stopped and patient is taking OCP with high risk for DVT.
[2017-02-01] MEDS: Famotidine 20 MG TABLET PO SCH (20:27)
[2017-02-01] MEDS: traZODone 50 MG TABLET PO SCH (20:27)
--- NOTE | 2017-02-01 20:54 | Anesthesia Evaluation PreOp ---
Date of Encounter: 02/01/17 Time of Encounter: 20:51 - Past History Planned Operation: Left leg wound debridement Cardiac History: Denies any Significant Hx Pulmonary History: Smoker [employer] History: Seizures (medication effect - does not have epilepsy and has had no recent seizures) Other Medical History: Renal (hx of kidney stones), GERD, Other (hx compartment syndrome involving the LLE) Anesthesia History: No Prior Anesthetic Complications, Past Anesthesia Alcohol Use: none Drug use: marijuana Medications and Allergies Gabapentin [Neurontin] 400 mg PO TID 12/02/15 [History] Lipase/Protease/Amylase [Ursula Miller 24,000 Units Capsule] 2 cap PO TIDWM 12/02/15 [History] Norgestimate-Ethinyl Estradiol [Sprintec 28 Day Tablet] 1 tab PO DAILY 12/02/15 [History] SUMAtriptan Succinate [Imitrex] 100 mg PO DAILY PRN MDD 200 mg 12/02/15 [History ] Tizanidine HCl [Zanaflex] 4 mg PO Q8H PRN 12/02/15 [History] Ranitidine HCl [Heartburn Relief] 150 mg PO HS 11/06/16 [History] Buspirone HCl [Buspar] 30 mg PO TID #90 11/13/16 [Rx] Trazodone HCl 300 mg PO HS #60 11/13/16 [Rx] diazePAM [Valium] 10 mg PO BID #60 11/13/16 [Rx] Dicyclomine [Bentyl] 10 mg PO QID PRN #20 capsule 12/13/16 [Rx] Ondansetron ODT [Zofran ODT] 4 mg SL Q6HR PRN #15 tab.rapdis 12/13/16 [Rx] Amitriptyline [Elavil] 25 mg PO QAM 01/06/17 [History] Lipase/Protease/Amylase [Ursula Miller 24,000 Units Capsule] 1 each PO QPM 01/06/17 [ History] Omeprazole [PriLOSEC] 40 mg PO DAILY 01/06/17 [History] Duloxetine HCl [Cymbalta] 60 mg PO BID #60 capsule. 01/09/17 [Rx] Promethazine [Phenergan] 25 mg PO Q6HR PRN #20 tablet 01/09/17 [Rx] Quetiapine Fumarate [Seroquel] 100 mg PO 0900,1300,1700 #90 tab 01/09/17 [Rx] Quetiapine Fumarate [Seroquel] 200 mg PO HS #30 tablet 01/09/17 [Rx] lamoTRIgine [Lamictal] 200 mg PO BID #60 tablet 01/09/17 [Rx] 3 Allergy/AdvReac Type Severity Reaction Status Date / Time metoclopramide [From Reglan] Allergy Seizure Verified 09/17/16 00:35 prochlorperazine Allergy Difficulty Verified 09/17/16 00:35 [From Compazine] Breathing haloperidol AdvReac See Verified 09/17/16 00:35 Comments - Meds/Allergy Pre-op Review Medications Reviewed: Yes Allergies Reviewed: Yes Beta Blockers on Current Med List: No Anesthesia Results - Labs 02/01/17 04:57 02/01/17 04:57 - Imaging EKG: report reviewed, image reviewed (Sinus bradycardia Nonspecific ST-T changes ) Anesthesia Exam Last Vital Signs Temp 97.9 F 02/01/17 19:59 Pulse 88 02/01/17 19:59 Resp 17 02/01/17 19:59 BP 115/70 02/01/17 19:59 Pulse Ox 99 02/01/17 20:44 Weight: 78 kg - HEENT Pupil (Motor): Pupils equal, EOMI Mallampati: II Teeth: Edentulous Oral Opening: Greater than 3 - [employer] LOC: Oriented [employer] Motor: Normal RUE, Normal LUE, Normal RLE, Normal LLE, Normal Face - Cardiac Rhythm: Regular Murmur: None - Pulmonary Breath Sounds: bilateral Clear Anesthesia Assess/Plan ASA Score: 2 Modified [place] Scale for Level of Consciousness: Cooperative, oriented, and tranquil Anesthetic Plan: General Monitoring Plan: Standard Monitors Recovery Plan: PACU
[2017-02-02] MEDS: *HR* OxyCODONE/APAP 7.5/325 TABLET PO PRN ×4 (01:22→19:04)
[2017-02-02] MEDS: D5% in 0.45% NACL 1,000 ML IVC SCH ×3 (03:15→22:36)
[2017-02-02] MEDS: *HR* Morphine 2 MG/ML SYRINGE IVP PRN ×3 (03:36→18:04)
[2017-02-02 04:20] LABS: Bilirubin,Urine Negative (Negative); Blood,Urine Small (Negative); Clarity,Urine Clear (Clear); Color,Urine Yellow (Yellow); Glucose,Urine (UA) Normal (Normal); Ketones,Urine Negative (Negative); Leukocyte Esterase,Urine Negative (Negative); Nitrite,Urine Negative (Negative); Protein,Urine Negative (Neg-Trace); Specific Gravity,Urine 1.009 (1.010-1.025); Urobilinogen,Urine Normal (Normal)
[2017-02-02 04:21] LABS: Bacteria,Urine None Seen per hpf (None-Few); Hyaline Casts,Urine None Seen per lpf (None-Few); RBC,Urine 0-3 per hpf (0-3); Squamous Epithelial Cell,Urine Many per lpf (None-Few); WBC,Urine 0-3 per hpf (0-3)
[2017-02-02 04:22] LABS: Basophils # 0.1 K/mcL (0.0-0.2); Basophils % 0.5 %; Eosinophils # 0.5 K/mcL (0.0-0.6); Eosinophils % 4.2 %; Hematocrit 28.4 % (35.3-44.9); Hemoglobin 9.4 g/dL (11.5-15.4); Immature Granulocytes % 0.3 % (0-4); Lymphocytes # 3.3 K/mcL (0.6-4.6); Mean Corpuscular HGB Conc 33.1 g/dL (31.6-35.5); Mean Corpuscular Hemoglobin 29.9 pg (28.0-33.3); Mean Corpuscular Volume 90.4 fL (83.0-100.0); Mean Platelet Volume 9.9 fL (9.4-12.4); Monocytes # 0.8 K/mcL (0.0-1.3); Monocytes % 6.9 %; Neutrophils # 6.3 K/mcL (1.6-8.9); Platelet Count 287 K/mcL (140-400); Red Blood Count 3.14 M/mcL (3.82-4.97); Red Cell Distribution Width 13.8 % (11.5-14.5); Segmented Neutrophils % 58.1 %
[2017-02-02 04:43] LABS: Calcium 7.8 mg/dL (8.6-10.8); Potassium 3.6 mEq/L (3.5-4.5)
[2017-02-02] MEDS: *HR* Heparin 5,000 UNIT/ML VIAL SQ SCH ×2 (05:22→18:04)
[2017-02-02] MEDS: lamoTRIgine 100 MG TABLET PO SCH ×2 (08:02→22:39)
[2017-02-02] MEDS: diazePAM 10 MG TABLET PO SCH ×2 (08:02→22:37)
--- NOTE | 2017-02-02 08:04 | Orthopedics Progress Note ---
Date of Encounter: 02/02/17 Time of Encounter: 08:03 - Assessment and Plan (1) Compartment syndrome of left lower extremity Current Visit: Yes Status: Acute I did discuss the diagnosis in detail with the patient. She does have significant left leg swelling and pain concerning for compartment syndrome. I did confirm this with compartment measurements including a superficial posterior compartment of 47 mmHg, a deep posterior compartment 24 mmHg, and anterior compartment 39 mmHg, and the lateral compartment 30 mmHg. My recommendation was for emergent 4 compartment fasciotomy of the left leg. The risks discussed included but were not limited to stiffness, bleeding, infection , blood clots, damage to neurovascular structures, tendons, ligaments, and bone. Also discussed was the risk of continued symptoms and possible need for further procedures. I did discuss the anesthesia risks including stroke, heart attack, and . I did discuss the reasonable, for stable postoperative course which may include multiple procedures for wound closure. I did express this to the patient in simple terms and she did wish to proceed and consent was obtained. We will proceed emergently to the operating room. Regarding the left fifth metatarsal fracture my recommendation will be for nonoperative management. Qualifiers: Encounter type: initial encounter Qualified Code(s): T79.A22A - Traumatic compartment syndrome of left lower extremity, initial encounter Subjective Principal diagnosis: SHAKEEL Interval history: S: Pain controlled to the left leg Has been elevating all night. O: Afebrile and vital signs are stable Wound VAC in place Swelling has gone down, and the skin feels more mobile. She cannot extend the toes She does demonstrate weak toe flexion The plantar surface of the foot does have altered sensation but is intact No sensation along the dorsal foot The toes are warm and well perfused A: Postoperative day 3 after partial wound closure with placement of VAC assisted closure device. Foot drop present preoperatively. Proximal fifth metatarsal fracture, nondisplaced P: Continue aggressive elevation and use of the wound VAC We will plan to go to the OR today for definitive wound closure versus split- thickness skin grafting to the left leg. Nonoperative management for the left fifth metatarsal fracture with nonweightbearing on the left lower extremity. It is impossible to tell at this point if she will regain any neurologic recovery but if so this could take months. Objective Vital signs: Vital Signs Temp Pulse Resp BP Pulse Ox 02/02/17 06:38 98.2 F 78 18 126/87 95 02/02/17 03:47 97.6 F 81 17 114/80 94 02/02/17 01:12 98.0 F 81 18 114/79 96 02/01/17 20:44 99 02/01/17 19:59 97.9 F 88 17 115/70 99 02/01/17 09:00 133/96 Intake and Output 02/01/17 02/02/17 02/02/17 23:59 07:59 15:59 Intake Total 1050 / 1050 Output Total 415 / 415 850 / 850 Balance 635 / 635 -850 / -850 Intake: IV Fluids 1000 / 1000 D5% And 0.45% Nacl 1000 Ml Bag 1000 / 1000 1,000 ML @ 100 mls/hr IVC .Q10H [facility] Rx#:[id number] Oral 50 / 50 Output: Urine 400 / 400 850 / 850 Wound Drainage Left Leg - Labs CBC & BMP: 02/02/17 03:55 02/02/17 03:55 Labs: Abnormal lab results RBC 3.14 M/mcL (3.82-4.97) L 02/02/17 03:55 Hgb 9.4 g/dL (11.5-15.4) L 02/02/17 03:55 Hct 28.4 % (35.3-44.9) L 02/02/17 03:55 ESR 39 mm/hr (0-15) H 01/28/17 04:47 Carbon Dioxide 35 mEq/L (19-29) H 02/02/17 03:55 BUN 38 mg/dL (7-20) H 02/02/17 03:55 Creatinine 3.52 mg/dL (0.57-1.11) H 02/02/17 03:55 Est GFR ( Amer) 18 (> 60) L 02/02/17 03:55 Est GFR (Non-Af Amer) 15 (> 60) L 02/02/17 03:55 Uric Acid 8.5 mg/dL (2.6-6.0) H 01/28/17 06:02 Calcium 7.8 mg/dL (8.6-10.8) L 02/02/17 03:55 Total Bilirubin < 0.2 mg/dL (0.2-1.2) L 01/31/17 04:50 AST 124 Units/L (5-34) H 01/31/17 04:50 Creatine Kinase 2044 Units/L (29-168) H 02/02/17 03:55 C-Reactive Protein 250 mg/L (Less than 5) H 01/28/17 04:47 Serum Total Protein 5.5 g/dL (6.0-8.3) L 01/31/17 04:50 Albumin 2.4 g/dL (3.5-5.0) L 01/31/17 04:50 Albumin/Globulin Ratio 0.8 (1.1-2.2) L 01/31/17 04:50 Ur Specimen Adequacy See below A 01/28/17 05:45 Ur Specific [place] 1.009 (1.010-1.025) L 02/02/17 03:55 Urine Blood Small (Negative) H 02/02/17 03:55 Ur Squamous Epith Cells Many per lpf (None-Few) H 02/02/17 03:55 Urine Opiates Screen Positive ng/mL (Yzsdbc=301) H 01/28/17 05:45 U Benzodiazepines Scrn Positive ng/mL (Tzvuca=450) H 01/28/17 05:45 U Marijuana (THC) Screen Positive ng/mL (Cutoff = 50) H 01/28/17 05:45 - VTE Documentation of Mechanical Device: Intermittent pneumatic compression device Consult Discharge Plan - Plan Referrals: Alka Castanon DO [Primary Care Provider] -
[2017-02-02] MEDS: Gabapentin 400 MG CAPSULE PO SCH ×2 (08:07→14:56)
--- NOTE | 2017-02-02 08:49 | Nephrology Progress Note ---
Date of Encounter: 02/02/17 Time of Encounter: 08:45 - Assessment and Plan (1) Acute kidney injury Current Visit: Yes Status: Acute Acute kidney injury Secondary rhabdomyolysis. Current creatinine 3.77, GFR 13. Baseline creatinine 0.80 with GFR greater than 60. 02/02: Creatinine 3.52 down from 3.77 yesterday no improvement in the GFR from 13-15. Creatinine kinase 2044 slowly improving, will require continued IV fluid replacement and close renal monitoring. - Urine output improved to 1800 mL's from 600 the day prior. She has a cumulative positive fluid balance of 6136 mL's. Plan: - Continue IV fluids D5 half-normal saline- continue renal perfusion - Avoid nephrotoxic medications, renally dose antibiotics - strict intake and output monitoring, daily weights - monitor renal function with a.m. labs (2) Rhabdomyolysis Current Visit: Yes Status: Acute Rhabdomyolysis secondary to compartment syndrome. Status post fasciotomy. Creatinine kinase 2044 down from greater than 41,000. - Continue IV fluids: D5 half-normal saline at 75 mL to continue improving renal clearance. Qualifiers: Rhabdomyolysis type: traumatic Encounter type: initial encounter Qualified Code(s): T79.6XXA - Traumatic ischemia of muscle, initial encounter (3) Compartment syndrome of left lower extremity Current Visit: Yes Status: Acute Patient presented to hospital with left lower extremity swelling found to have compartment syndrome and underwent emergent fasciotomy in multiple compartments. - Status post fasciotomy - Management per primary team - Compartment syndrome Likely the cause of her rhabdomyolysis. Qualifiers: Encounter type: initial encounter Qualified Code(s): T79.A22A - Traumatic compartment syndrome of left lower extremity, initial encounter (4) Nondisplaced fracture of fifth left metatarsal bone Current Visit: Yes Status: Acute Management per primary team. Qualifiers: Encounter type: initial encounter Fracture type: closed Qualified Code(s) : S92.355A - Nondisplaced fracture of fifth metatarsal bone, left foot, initial encounter for closed fracture Subjective Principal diagnosis: SHAKEEL Interval history: Mrs. Calle 36-year-old female has been seen and evaluated at patient bedside this morning. She feels that her pain is much more tolerable this morning. She is scheduled for closure of her left leg incisions. She has had a year that her renal function has improved slightly and seems more upbeat. She denies any new concerns or complaints overnight and is looking forward to her procedure today. Objective - Vital Signs Vital signs: Vital Signs Temp Pulse Resp BP Pulse Ox 02/02/17 06:38 98.2 F 78 18 126/87 95 02/02/17 03:47 97.6 F 81 17 114/80 94 02/02/17 01:12 98.0 F 81 18 114/79 96 02/01/17 20:44 99 02/01/17 19:59 97.9 F 88 17 115/70 99 02/01/17 09:00 133/96 Intake and Output 02/01/17 02/02/17 02/02/17 23:59 07:59 15:59 Intake Total 1050 / 1050 1000 / 1000 Output Total 415 / 415 850 / 850 220 / 220 Balance 635 / 635 -850 / -850 780 / 780 Intake: IV Fluids 1000 / 1000 1000 / 1000 D5% And 0.45% Nacl 1000 Ml Bag 1000 / 1000 1000 / 1000 1,000 ML @ 100 mls/hr IVC .Q10H [facility] Rx#:[id number] Oral 50 / 50 Output: Urine 400 / 400 850 / 850 Wound Drainage 220 / 220 Left Calf 110 / 110 Left Leg 110 / 110 - General Appearance Exam: General: Patient lethargic, awake, oriented 3, interactive, in no acute distress HEENT: Normocephalic, atraumatic, oral mucosa moist, edentulous, neck supple trachea midline no palpable lymphadenopathy, no thyromegaly. Chest: Symmetric bilateral correlating with respiratory effort, effort nonlabored. Cardiac: Regular rate and rhythm, positive S1 and S2. no bruits appreciated bilateral carotids, Radial pulses 2+ bilateral. Respiratory: Clear to auscultation all lung zazueta Abdomen: Soft, nontender, positive bowel sounds, no palpable masses appreciated on examination Extremities: Patient able to move bilateral upper extremities without weakness, patient retains sensation and motor function right lower extremity. Left lower extremity is wrapped post surgery. Toes are exposed demonstrate appropriate circulation and warm, able to actively flex toes, sensation greater in the great toe, diminished in remaining four toes. Neurologic: Face symmetric, as mentioned above - Lab 02/02/17 03:55 02/02/17 03:55 Most recent lab results Calcium 7.8 mg/dL (8.6-10.8) L 02/02/17 03:55 Magnesium 1.9 mg/dL (1.6-2.6) 01/30/17 04:17 - VTE Documentation of Mechanical Device: Intermittent pneumatic compression device Consult Discharge Plan - Plan Referrals: Alka Castanon DO [Primary Care Provider] -
[2017-02-02] MEDS: (Norgestimate-Ethinyl Estradiol [Sprintec 28 Day Tabl) PO SCH (09:27)
[2017-02-02] MEDS ORDERED: Ipratropium/Albuterol Neb 3 ML ONE (14:58)
[2017-02-02] MEDS ORDERED: Bupivacaine/EPI 1:200k 0.5%PF 10 ML VIAL ONE (15:08)
[2017-02-02] MEDS ORDERED: Ondansetron 4 MG/2 ML VIAL ONE (15:31)
[2017-02-02] MEDS ORDERED: *HR* Midazolam HCl 2 MG/2 ML VIAL ONE (15:31)
[2017-02-02] MEDS ORDERED: *HR* Propofol 200 MG/20 ML VIAL IVP ONE (15:31)
[2017-02-02] MEDS ORDERED: Lidocaine -MPF 2% 2 ML VIAL ONE (15:31)
[2017-02-02] MEDS ORDERED: *HR* FentaNYL (PF) 100 MCG/2 ML VIAL ONE (15:31)
[2017-02-02] MEDS ORDERED: Dexamethasone 4 MG/ML VIAL ONE (15:31)
[2017-02-02] MEDS ORDERED: *HR* Promethazine 25 MG/ML VIAL IVP PRN (16:46)
[2017-02-02] MEDS ORDERED: *HR* Morphine 2 MG/ML SYRINGE IVP PRN (16:46)
--- NOTE | 2017-02-02 17:16 | Orthopedic Operative Note ---
Date of procedure: 02/02/17 Procedure: OPERATIVE REPORT DATE OF PROCEDURE: 02/02/2017 SURGEON: Lm Valle MD LIME BOILER(S): There are no assistants PREOPERATIVE DIAGNOSIS: Post 2 incision left leg 4 compartment fasciotomy POSTOPERATIVE DIAGNOSIS: Same PROCEDURE: Irrigation of leg wound with application of split thickness skin graft from the anterolateral left thigh ANESTHESIA: General anesthesia PREOPERATIVE ANTIBIOTICS: Due to grams of Ancef ESTIMATED BLOOD LOSS: 2 milliliters PREOPERATIVE NOTE AND INDICATIONS: This patient is a 36-year-old female who underwent 4 compartment fasciotomy of her left leg with 2 incisions. The medial side was closed primarily however the lateral side was unable to be done primarily. She is taken to the operating room over the weekend in an attempt to close the wound however this was unsuccessful. She is elevated throughout the remainder of the weekend and recommendation was for a final attempt at wound closure versus placement of split-thickness skin grafting. The surgical plan was discussed with the patient. The risks, benefits, alternatives, and potential complications of this procedure were discussed with the patient including injury to veins, arteries, nerves, tendons, ligaments, and bone. Also discussed were the risks of infection, bleeding, pain, blood clots, the possible need for a blood transfusion, the possible need for further procedures, heart attack, stroke, and . Additional risks include graft failure and poor cosmesis as well as donor site pain and poor cosmesis. All of this was explained in simple terms, and the patient verbalized understanding and wished to proceed. Consent was given to proceed with surgery. PROCEDURE: The patient was seen in the preoperative holding area where the identify and the consent were confirmed. The left leg was marked. Final questions were answered. The patient was brought back to the operating room and placed supine on the operating room table. A huddle was performed with the patient and all vital surgical team members confirming patient identity, the correct procedure, and the correct operative site. General anesthesia was administered. The left leg was prepped and draped in the usual sterile fashion. A surgical time out was performed immediately preceding the incision with all personnel in the operating room to confirm patient identity, the correct operative site and extremity, correct radiographic studies, availability of appropriate surgical equipment, and agreement on the planned procedure. No tourniquet was used. The wound bed was very healthy. There is no necrotic tissue. The bed was irrigated copiously and an attempt at closure was made. Closure under tension was not possible. The decision was made to perform split- thickness skin grafting for wound coverage. The wound measured 15 cm in length by 6 cm in width. An area was marked out on the anterolateral thigh and lubricated with mineral oil. The 3 inch dermatome guard was selected and a new dermatome blade was placed onto the dermatome. The split thickness skin graft was harvested from the anterolateral thigh and following this it was placed dermal side up on the carrier. This was a 1.5 carrier. The carrier was then passed through the mesher. The carrier was then laid over the wound and the graft transferred to the wound. It was circumferentially stapled after trimming to size. A sponge soaked in thrombin was placed over the donor site. An Adaptic was placed over the skin graft and the wound VAC sponge was then placed and stapled in place. A small bridge was made so that the suction device was off the wound. The wound VAC was set for -125 mmHg continuous. The donor site was covered with 2 layers of Adaptic followed by ABDs. A short leg splint was applied with the ankle at 90 degrees. An Rolando wrap was used to cover the whole left lower extremity. The instrument, sponge, and needle counts were correct after wound closure. POST OPERATIVE PLAN: Weight Bearing: Nonweightbearing to the left lower extremity DVT Prophylaxis: Per the primary team Activity: Avoid aggressive activities. Elevate the left lower extremity. Wound Care: We will keep the wound VAC in place for 48 hours followed by daily dressing changes. Pain Control: Per the primary team Perioperative antibiotic prophylaxis: 2 doses of postoperative Ancef Social work for discharge planning Follow Up: One week after discharge
[2017-02-02] MEDS ORDERED: Ringers Solution, Lactated 1,000 ML ONE (17:27)
--- NOTE | 2017-02-02 17:36 | Anesthesia Evaluation Post Op ---
Date of Encounter: 02/02/17 Time of Encounter: 17:34 - Vital Signs Vital Signs: vss - Lungs Lungs: Clear Ascult./Percussion - Airway Airway: Non-obstructed - Cardiovascular Baseline Rhythm - Mental Status Mental Status: Asleep with brisk response to light stimulation - Pain Pain Scale used: Ronaldo (Faces) (no apparent distress) - Nausea Vomiting Nausea Vomiting: Not Present - Hydration Hydration: Ice chips - Discharge PostOp Status: Transfer Patient to floor
--- NOTE | 2017-02-02 17:57 | Internal Med Progress Note ---
Date of Encounter: 02/02/17 Time of Encounter: 17:52 - Assessment and plan (1) Compartment syndrome Current Visit: Yes Status: Acute Assessment and plan: Patient presented with acute progressive left leg pain, swelling and noted to have rhabdomyolysis, compartment syndrome with associated fifth metatarsal fracture Patient underwent fasciotomy s/p day 3 Placed on Vac today Continue pain control: IV Morphine along with PO Percocet Local wound care and wound vac management per Orthopedic surgery PT/OT evaluation elevation of leg Qualifiers: Compartment syndrome type: traumatic Encounter type: initial encounter Compartment syndrome location: lower extremity Laterality: left Qualified Code(s): T79.A22A - Traumatic compartment syndrome of left lower extremity, initial encounter (2) Acute kidney injury Current Visit: Yes Status: Acute Assessment and plan: Non oliguric Due t severe Rhabdomyolysis peaked at 3.95.. now started trending down..today at 3.52 Cont IV hydration monitor renal function Avoid nephrotoxic agents Renally dosed neurontin (3) Closed nondisplaced fracture of fifth left metatarsal bone Current Visit: Yes Status: Acute Assessment and plan: traumatic nonoperative management with non-weight bearing, pain control, PT/OT Qualifiers: Encounter type: initial encounter Qualified Code(s): S92.355A - Nondisplaced fracture of fifth metatarsal bone, left foot, initial encounter for closed fracture (4) Rhabdomyolysis Current Visit: Yes Status: Acute Assessment and plan: Serum CK improving creatinine improving, 3.52 continue IV fluids D5 with bicarb per nephro avoid nephrotoxic agents Monitor intake and output Qualifiers: Rhabdomyolysis type: traumatic Encounter type: initial encounter Qualified Code(s): T79.6XXA - Traumatic ischemia of muscle, initial encounter (5) Polysubstance abuse Current Visit: Yes Status: Chronic Assessment and plan: Urine drug screen positive for Marijuana, BZD, opiates; social work program coordinator consult for safe discharge counseled to quit drugs.. Recommended to go for rehab (6) Depression Current Visit: Yes Status: Chronic Assessment and plan: continue home elavijorgito, buspar Qualifiers: Depression Type: major depressive disorder Major depression recurrence: recurrent Active/Remission status: remission status unspecified Qualified Code(s): F33.9 - Major depressive disorder, recurrent, unspecified (7) DVT prophylaxis Current Visit: Yes Status: Acute Assessment and plan: -continue with EPCD - Subjective Interval history: This is a 35 y/o F with known PMH of poly substance abuse who admitted here Left lower extremity compartment syndrome had fasciotomy done on 01/30/17. She also happened to have worsening SHAKEEL due to severe rhabdomyolysis. Pt went for wound closure today.. She just came back from OR with wound VAC placed on. She is alert, awake and O x 3. Her pain is tolerable with current meds. - Constitutional Vitals: Temp Pulse Resp BP Pulse Ox 98.2 F 93 13 122/80 97 02/02/17 17:40 02/02/17 17:40 02/02/17 17:40 02/02/17 17:40 02/02/17 17:40 General appearance: Present: A&O X 3, no acute distress, answers questions appropriately - Head Head exam: Present: atraumatic, normal inspection - Neck Neck exam general surgery: Present: supple - Respiratory Respiratory exam: Present: decreased breath sounds, wheezes. Absent: rales, respiratory distress, rhonchi - Cardiovascular Cardiovascular exam: Present: RRR, +S1, +S2. Absent: systolic murmur - GI/Abdominal GI/Abdominal exam: Present: normal bowel sounds, soft. Absent: rebound, rigid, tenderness - Extremities Exam Extremities exam: Present: pedal edema, tenderness. Absent: calf tenderness Additional comments: wound vac +.. Dressing over whole Left leg..She is able to wiggle her toes - Back Exam Back exam: Absent: CVA tenderness (L), CVA tenderness (R) - Neurological Exam Neurological exam: Present: alert, oriented X3 - Psychiatric Psychiatric exam: Present: normal affect, normal mood Internal Medicine: Result - Labs CBC & Chem 7: 02/02/17 03:55 02/02/17 03:55 Labs: Short CBC 02/02/17 Range/Units 03:55 WBC 10.8 (4.3-11.1) K/mcL Hgb 9.4 L (11.5-15.4) g/dL Hct 28.4 L (35.3-44.9) % Plt Count 287 (140-400) K/mcL Neutrophils # 6.3 (1.6-8.9) K/mcL BMP 02/02/17 03:55 Sodium 140 Potassium 3.6 Chloride 99 Carbon Dioxide 35 H BUN 38 H Creatinine 3.52 H Glucose 92 Calcium 7.8 L Urine 02/02/17 Range/Units 03:55 Urine Color Yellow (Yellow) Urine Clarity Clear (Clear) Urine pH 7.0 (5.0-8.0) pH Units Ur Specific [place] 1.009 L (1.010-1.025) Urine Protein Negative (Neg-Trace) mg/dL Urine Glucose (UA) Normal (Normal) mg/dL - VTE Documentation of Mechanical Device: Intermittent pneumatic compression device Consult Discharge Plan - Plan Referrals: Alka Castanon DO [Primary Care Provider] -
[2017-02-02] MEDS: Ondansetron 4 MG/2 ML VIAL IVP PRN (18:04)
[2017-02-02] MEDS: Famotidine 20 MG TABLET PO SCH (22:38)
[2017-02-02] MEDS: traZODone 50 MG TABLET PO SCH (22:38)
[2017-02-02] MEDS: Gabapentin 100 MG CAPSULE PO SCH (22:39)
[2017-02-03] MEDS: ceFAZolin 2,000 MG in D5% in Water 100 ML IVPB SCH ×2 (01:19→07:56)
[2017-02-03] MEDS: *HR* Morphine 2 MG/ML SYRINGE IVP PRN ×4 (02:36→21:48)
[2017-02-03] MEDS: *HR* Heparin 5,000 UNIT/ML VIAL SQ SCH ×2 (03:37→16:51)
[2017-02-03] MEDS: tiZANidine 4 MG TABLET PO PRN (03:37)
[2017-02-03] MEDS: *HR* OxyCODONE/APAP 7.5/325 TABLET PO PRN ×3 (04:44→19:18)
--- NOTE | 2017-02-03 07:44 | Orthopedics Progress Note ---
Date of Encounter: 02/03/17 Time of Encounter: 07:42 Subjective Principal diagnosis: SHAKEEL Interval history: S: Expected pain to the left lower extremity, particularly at the harvest site Has been elevating all night. O: Afebrile and vital signs are stable Left lower extremity dressing left in place Wound VAC in place; 50 mL of serosanguineous output She cannot extend the toes She does demonstrate weak toe flexion The plantar surface of the foot does have altered sensation but is intact No sensation along the dorsal foot The toes are warm and well perfused A: Postoperative day 1 after split thickness skin grafting to cover the left fasciotomy wound. Foot drop present preoperatively. Proximal fifth metatarsal fracture, nondisplaced P: At this point I will continue the wound VAC until tomorrow afternoon At that point I will take down the wound VAC and evaluate the skin graft If all looks good anticipate discharge on Wednesday Nonoperative management for the left fifth metatarsal fracture with nonweightbearing on the left lower extremity. It is impossible to tell at this point if she will regain any neurologic recovery but if so this could take months. Objective Vital signs: Vital Signs Temp Pulse Resp BP Pulse Ox 02/03/17 06:51 98.3 F 84 19 137/86 95 02/03/17 05:09 98.1 F 86 17 130/85 94 02/02/17 21:15 98.6 F 108 17 129/90 94 02/02/17 20:25 99 F 92 18 114/70 94 02/02/17 18:57 97.6 F 87 14 117/81 14 02/02/17 18:26 97.6 F 90 16 123/83 99 02/02/17 18:15 97.7 F 88 16 114/82 97 02/02/17 17:54 98.5 F 100 16 129/87 97 02/02/17 17:40 98.2 F 93 13 122/80 97 02/02/17 17:30 98.2 F 95 16 110/81 97 02/02/17 17:20 106 15 122/86 91 02/02/17 17:10 106 13 124/90 94 02/02/17 17:00 98.1 F 109 18 119/79 98 02/02/17 11:18 98.1 F 86 18 119/83 98 02/02/17 11:01 95 Intake and Output 02/02/17 02/02/17 02/03/17 15:59 23:59 07:59 Intake Total 1000 / 1000 0 / 0 1500 / 1500 Output Total 1220 / 1220 2 / 2 2200 / 2200 Balance -220 / -220 -2 / -2 -700 / -700 Intake: IV Fluids 1000 / 1000 0 / 0 D5% And 0.45% Nacl 1000 Ml Bag 1000 / 1000 0 / 0 1,000 ML @ 100 mls/hr IVC .Q10H JACQUELYN Rx#:[id number] Oral 1500 / 1500 Output: Urine 1000 / 1000 2200 / 2200 Gastric Drainage 2 / 2 Wound Drainage 220 / 220 0 / 0 Left Calf 110 / 110 0 / 0 Left Leg 110 / 110 0 / 0 Other: # Voids 3 - Labs CBC & BMP: 02/02/17 03:55 02/02/17 03:55 Labs: Abnormal lab results RBC 3.14 M/mcL (3.82-4.97) L 02/02/17 03:55 Hgb 9.4 g/dL (11.5-15.4) L 02/02/17 03:55 Hct 28.4 % (35.3-44.9) L 02/02/17 03:55 ESR 39 mm/hr (0-15) H 01/28/17 04:47 Carbon Dioxide 35 mEq/L (19-29) H 02/02/17 03:55 BUN 38 mg/dL (7-20) H 02/02/17 03:55 Creatinine 3.52 mg/dL (0.57-1.11) H 02/02/17 03:55 Est GFR ( Amer) 18 (> 60) L 02/02/17 03:55 Est GFR (Non-Af Amer) 15 (> 60) L 02/02/17 03:55 Uric Acid 8.5 mg/dL (2.6-6.0) H 01/28/17 06:02 Calcium 7.8 mg/dL (8.6-10.8) L 02/02/17 03:55 Total Bilirubin < 0.2 mg/dL (0.2-1.2) L 01/31/17 04:50 AST 124 Units/L (5-34) H 01/31/17 04:50 Creatine Kinase 2044 Units/L (29-168) H 02/02/17 03:55 C-Reactive Protein 250 mg/L (Less than 5) H 01/28/17 04:47 Serum Total Protein 5.5 g/dL (6.0-8.3) L 01/31/17 04:50 Albumin 2.4 g/dL (3.5-5.0) L 01/31/17 04:50 Albumin/Globulin Ratio 0.8 (1.1-2.2) L 01/31/17 04:50 Ur Specimen Adequacy See below A 01/28/17 05:45 Ur Specific [place] 1.009 (1.010-1.025) L 02/02/17 03:55 Urine Blood Small (Negative) H 02/02/17 03:55 Ur Squamous Epith Cells Many per lpf (None-Few) H 02/02/17 03:55 Urine Opiates Screen Positive ng/mL (Vscdye=611) H 01/28/17 05:45 U Benzodiazepines Scrn Positive ng/mL (Qvpkxe=831) H 01/28/17 05:45 U Marijuana (THC) Screen Positive ng/mL (Cutoff = 50) H 01/28/17 05:45 - VTE Documentation of Mechanical Device: Intermittent pneumatic compression device Consult Discharge Plan - Plan Referrals: Alka Castanon DO [Primary Care Provider] -
[2017-02-03] MEDS: (Norgestimate-Ethinyl Estradiol [Sprintec 28 Day Tabl) PO SCH (07:56)
[2017-02-03] MEDS: lamoTRIgine 100 MG TABLET PO SCH ×2 (07:57→21:41)
[2017-02-03] MEDS: diazePAM 10 MG TABLET PO SCH ×2 (07:58→21:39)
[2017-02-03] MEDS: Gabapentin 100 MG CAPSULE PO SCH ×3 (07:58→21:39)
[2017-02-03] MEDS: D5% in 0.45% NACL 1,000 ML IVC SCH ×3 (09:20→19:18)
--- NOTE | 2017-02-03 09:41 | Nephrology Progress Note ---
Date of Encounter: 02/03/17 Time of Encounter: 09:40 - Assessment and Plan (1) Acute kidney injury Current Visit: Yes Status: Acute Acute kidney injury Secondary rhabdomyolysis. Current creatinine 3.77, GFR 13. Baseline creatinine 0.80 with GFR greater than 60. 02/02: Creatinine 3.52 down from 3.77 yesterday no improvement in the GFR from 13-15. Creatinine kinase 2044 slowly improving, will require continued IV fluid replacement and close renal monitoring. - Urine output improved to 1800 mL's from 600 the day prior. She has a cumulative positive fluid balance of 6136 mL's. 02/03: Creatinine minimally improved to 3.36, GFR stable at 18, increased urinary output. Patient tolerating oral intake and continued IV fluids. Plan: - Continue IV fluids D5 half-normal saline- continue renal perfusion - Avoid nephrotoxic medications, renally dose antibiotics - strict intake and output monitoring, daily weights - monitor renal function with a.m. labs (2) Rhabdomyolysis Current Visit: Yes Status: Acute Rhabdomyolysis secondary to compartment syndrome. Status post fasciotomy. Creatinine kinase 1479 down from greater than 41,000. - Continue IV fluids: D5 half-normal saline at 75 mL to continue improving renal clearance. Qualifiers: Rhabdomyolysis type: traumatic Encounter type: initial encounter Qualified Code(s): T79.6XXA - Traumatic ischemia of muscle, initial encounter (3) Compartment syndrome of left lower extremity Current Visit: Yes Status: Deleted Patient presented to hospital with left lower extremity swelling found to have compartment syndrome and underwent emergent fasciotomy in multiple compartments. - Status post fasciotomy - Management per primary team - Compartment syndrome Likely the cause of her rhabdomyolysis. Qualifiers: Encounter type: initial encounter Qualified Code(s): T79.A22A - Traumatic compartment syndrome of left lower extremity, initial encounter (4) Nondisplaced fracture of fifth left metatarsal bone Current Visit: Yes Status: Acute Management per primary team. Qualifiers: Encounter type: initial encounter Fracture type: closed Qualified Code(s) : S92.355A - Nondisplaced fracture of fifth metatarsal bone, left foot, initial encounter for closed fracture Subjective Principal diagnosis: SHAKEEL Interval history: Mrs. Calle 36-year-old female has been seen and evaluated at patient bedside this morning. She complains of pain in her left leg after closure surgery yesterday. She says that the wound has been weeping blood tinged fluid. She denies any other major concerns over night. She has been eating well, passing gas and denies fevers or chills. Objective - Vital Signs Vital signs: Vital Signs Temp Pulse Resp BP Pulse Ox 02/03/17 06:51 98.3 F 84 19 137/86 95 02/03/17 05:09 98.1 F 86 17 130/85 94 02/02/17 21:15 98.6 F 108 17 129/90 94 02/02/17 20:25 99 F 92 18 114/70 94 02/02/17 18:57 97.6 F 87 14 117/81 14 02/02/17 18:26 97.6 F 90 16 123/83 99 02/02/17 18:15 97.7 F 88 16 114/82 97 02/02/17 17:54 98.5 F 100 16 129/87 97 02/02/17 17:40 98.2 F 93 13 122/80 97 02/02/17 17:30 98.2 F 95 16 110/81 97 02/02/17 17:20 106 15 122/86 91 02/02/17 17:10 106 13 124/90 94 02/02/17 17:00 98.1 F 109 18 119/79 98 02/02/17 11:18 98.1 F 86 18 119/83 98 02/02/17 11:01 95 Intake and Output 02/02/17 02/03/17 02/03/17 23:59 07:59 15:59 Intake Total 0 / 0 1600 / 1600 900 / 900 Output Total 2 / 2 2200 / 2200 Balance -2 / -2 -600 / -600 900 / 900 Intake: IV Fluids 0 / 0 100 / 100 900 / 900 D5% And 0.45% Nacl 1000 Ml Bag 0 / 0 900 / 900 1,000 ML @ 100 mls/hr IVC .Q10H JACQUELYN Rx#:[id number] Ancef 2,000 MG In Dextrose 5% 100 / 100 100 ML @ 200 mls/hr IVPB Q8HR JACQUELYN Rx#:[id number] Oral 1500 / 1500 Output: Urine 2200 / 2200 Gastric Drainage 2 / 2 Wound Drainage 0 / 0 Left Calf 0 / 0 Left Leg 0 / 0 Other: # Voids 3 - General Appearance Exam: General: Patient lethargic, awake, oriented 3, interactive, in no acute distress HEENT: Normocephalic, atraumatic, oral mucosa moist, edentulous, neck supple trachea midline no palpable lymphadenopathy, no thyromegaly. Chest: Symmetric bilateral correlating with respiratory effort, effort nonlabored. Cardiac: Regular rate and rhythm, positive S1 and S2. no bruits appreciated bilateral carotids, Radial pulses 2+ bilateral. Respiratory: Clear to auscultation all lung zazueta Abdomen: Soft, nontender, positive bowel sounds, no palpable masses appreciated on examination Extremities: Patient able to move bilateral upper extremities without weakness, patient retains sensation and motor function right lower extremity. Left lower extremity is wrapped post surgery. Toes are exposed demonstrate appropriate circulation and warm, able to actively flex toes, sensation greater in the great toe, diminished in remaining four toes. Neurologic: Face symmetric, as mentioned above - Lab 02/03/17 14:00 02/03/17 14:00 Most recent lab results Calcium 7.8 mg/dL (8.6-10.8) L 02/02/17 03:55 Magnesium 1.9 mg/dL (1.6-2.6) 01/30/17 04:17 - VTE Documentation of Mechanical Device: Intermittent pneumatic compression device Consult Discharge Plan - Plan Referrals: Alka Castanon DO [Primary Care Provider] - Dmitri Powell MD [Partnered Physician] - 02/09/17 2:10 pm
--- NOTE | 2017-02-03 13:45 | Internal Med Progress Note ---
Date of Encounter: 02/03/17 Time of Encounter: 13:43 - Assessment and plan (1) Compartment syndrome Current Visit: Yes Status: Acute Assessment and plan: Patient presented with acute progressive left leg pain, swelling and noted to have rhabdomyolysis, compartment syndrome with associated fifth metatarsal fracture Patient underwent fasciotomy s/p day 4 Had Irrigation , Skin graft and Wound vac placed on 02/02/17 Wound care as per Ortho recommendations Continue pain control: IV Morphine along with PO Percocet PT/OT evaluation elevation of leg Qualifiers: Compartment syndrome type: traumatic Encounter type: initial encounter Compartment syndrome location: lower extremity Laterality: left Qualified Code(s): T79.A22A - Traumatic compartment syndrome of left lower extremity, initial encounter (2) Acute kidney injury Current Visit: Yes Status: Acute Assessment and plan: Non oliguric Due to severe Rhabdomyolysis peaked at 3.95.. now started trending down..y/d at 3.52 Labs - P today d/c IVF monitor renal function Avoid nephrotoxic agents Renally dosed neurontin (3) Closed nondisplaced fracture of fifth left metatarsal bone Current Visit: Yes Status: Acute Assessment and plan: traumatic nonoperative management with non-weight bearing, pain control, PT/OT Qualifiers: Encounter type: initial encounter Qualified Code(s): S92.355A - Nondisplaced fracture of fifth metatarsal bone, left foot, initial encounter for closed fracture (4) Rhabdomyolysis Current Visit: Yes Status: Acute Assessment and plan: Serum CK improving creatinine improving, 3.52 d/c IVF .. waiting on today's labs avoid nephrotoxic agents Monitor intake and output Qualifiers: Rhabdomyolysis type: traumatic Encounter type: initial encounter Qualified Code(s): T79.6XXA - Traumatic ischemia of muscle, initial encounter (5) Polysubstance abuse Current Visit: Yes Status: Chronic Assessment and plan: Urine drug screen positive for Marijuana, BZD, opiates; social problems specialist consult for safe discharge counseled to quit drugs.. Recommended to go for rehab (6) Depression Current Visit: Yes Status: Chronic Assessment and plan: continue home elavil, buspar Qualifiers: Depression Type: major depressive disorder Major depression recurrence: recurrent Active/Remission status: remission status unspecified Qualified Code(s): F33.9 - Major depressive disorder, recurrent, unspecified (7) DVT prophylaxis Current Visit: Yes Status: Acute Assessment and plan: -continue with EPCD - Subjective Interval history: This is a 35 y/o F with known PMH of poly substance abuse who admitted here Left lower extremity compartment syndrome had fasciotomy done on 01/30/17. She also happened to have worsening SHAKEEL due to severe rhabdomyolysis. She is alert, awake and O x 3. She did ask for more pain medication. Denied any CP / SOB. Tolerating PO intake well - Constitutional Vitals: Temp Pulse Resp BP Pulse Ox 98.7 F 84 16 119/81 97 02/03/17 10:56 02/03/17 10:56 02/03/17 10:56 02/03/17 10:56 02/03/17 10:56 General appearance: Present: A&O X 3, no acute distress, answers questions appropriately - Head Head exam: Present: atraumatic, normal inspection - Neck Neck exam general surgery: Present: supple - Respiratory Respiratory exam: Present: decreased breath sounds. Absent: rales, respiratory distress, rhonchi, wheezes - Cardiovascular Cardiovascular exam: Present: RRR, +S1, +S2. Absent: systolic murmur - GI/Abdominal GI/Abdominal exam: Present: normal bowel sounds, soft. Absent: rebound, rigid, tenderness - Extremities Exam Extremities exam: Present: pedal edema, tenderness (Left leg). Absent: calf tenderness Additional comments: Dressing placed on over Left leg.. Wound vac + - Back Exam Back exam: Absent: CVA tenderness (L), CVA tenderness (R) - Neurological Exam Neurological exam: Present: alert, oriented X3 - Psychiatric Psychiatric exam: Present: normal affect, normal mood Internal Medicine: Result - Labs CBC & Chem 7: 02/02/17 03:55 02/02/17 03:55 - VTE Documentation of Mechanical Device: Intermittent pneumatic compression device Consult Discharge Plan - Plan Referrals: Alka Castanon DO [Primary Care Provider] - Dmitri Powell MD [Partnered Physician] - 02/09/17 2:10 pm
[2017-02-03 14:39] LABS: Basophils % 0.1 %; Eosinophils # 0.1 K/mcL (0.0-0.6); Eosinophils % 0.3 %; Hematocrit 28.4 % (35.3-44.9); Hemoglobin 9.4 g/dL (11.5-15.4); Immature Granulocytes % 0.5 % (0-4); Lymphocytes # 1.9 K/mcL (0.6-4.6); Lymphocytes % 12.5 %; Mean Corpuscular HGB Conc 33.1 g/dL (31.6-35.5); Mean Corpuscular Hemoglobin 29.8 pg (28.0-33.3); Mean Corpuscular Volume 90.2 fL (83.0-100.0); Mean Platelet Volume 10.2 fL (9.4-12.4); Monocytes % 6.7 %; Neutrophils # 12.3 K/mcL (1.6-8.9); Platelet Count 317 K/mcL (140-400); Red Blood Count 3.15 M/mcL (3.82-4.97); Red Cell Distribution Width 13.6 % (11.5-14.5); Segmented Neutrophils % 79.9 %
[2017-02-03 14:48] LABS: Calcium 8.1 mg/dL (8.6-10.8); Magnesium 1.3 mg/dL (1.6-2.6); Potassium 4.2 mEq/L (3.5-4.5)
[2017-02-03] MEDS ORDERED: *HR* Morphine 2 MG/ML SYRINGE IVP SCH (16:00)
[2017-02-03] MEDS: traZODone 50 MG TABLET PO SCH (21:40)
[2017-02-03] MEDS: Famotidine 20 MG TABLET PO SCH (21:42)
[2017-02-03] MEDS: Ondansetron 4 MG/2 ML VIAL IVP PRN (21:42)
[2017-02-04] MEDS: *HR* OxyCODONE/APAP 7.5/325 TABLET PO PRN ×3 (00:29→10:39)
[2017-02-04] MEDS: tiZANidine 4 MG TABLET PO PRN ×2 (00:29→13:52)
[2017-02-04] MEDS: *HR* Morphine 2 MG/ML SYRINGE IVP PRN ×5 (03:41→20:47)
[2017-02-04] MEDS: D5% in 0.45% NACL 1,000 ML IVC SCH (03:52)
[2017-02-04] MEDS: *HR* Heparin 5,000 UNIT/ML VIAL SQ SCH ×2 (05:58→17:12)
--- NOTE | 2017-02-04 07:49 | Orthopedics Progress Note ---
Date of Encounter: 02/04/17 Time of Encounter: 07:48 Subjective Principal diagnosis: SHAKEEL Interval history: S: Expected pain to the left lower extremity, particularly at the harvest site Has been elevating all night. O: Afebrile and vital signs are stable Left lower extremity dressing left in place Wound VAC in place; She cannot extend the toes She does demonstrate weak toe flexion The plantar surface of the foot does have altered sensation but is intact No sensation along the dorsal foot The toes are warm and well perfused A: Postoperative day 2 after split thickness skin grafting to cover the left fasciotomy wound. Foot drop present preoperatively. Proximal fifth metatarsal fracture, nondisplaced P: I will take down the wound VAC this afternoon to evaluate the skin graft. If all looks good anticipate discharge on Wednesday Nonoperative management for the left fifth metatarsal fracture with nonweightbearing on the left lower extremity. It is impossible to tell at this point if she will regain any neurologic recovery but if so this could take months. Objective Vital signs: Vital Signs Temp Pulse Resp BP Pulse Ox 02/04/17 07:36 98.1 F 77 14 114/69 95 02/04/17 03:23 98.4 F 69 14 110/72 96 02/03/17 22:36 97.9 F 77 14 112/75 96 02/03/17 19:28 98.6 F 82 14 116/77 96 02/03/17 15:18 98.8 F 76 18 123/76 95 02/03/17 10:56 98.7 F 84 16 119/81 97 Intake and Output 02/03/17 02/03/17 02/04/17 15:59 23:59 07:59 Intake Total 1140 / 1140 1000 / 1000 1000 / 1000 Output Total 670 / 670 1200 / 1200 0 / 0 Balance 470 / 470 -200 / -200 1000 / 1000 Intake: IV Fluids 900 / 900 1000 / 1000 1000 / 1000 D5% And 0.45% Nacl 1000 Ml Bag 900 / 900 1000 / 1000 1000 / 1000 1,000 ML @ 100 mls/hr IVC .Q10H JACQUELYN Rx#:[id number] Oral 240 / 240 Output: Urine 650 / 650 1200 / 1200 0 / 0 Wound Drainage 20 / 20 Left Leg 20 / 20 Other: Meal Lunch Percent of Meal Consumed 50% Blood Glucose* 112 - Labs CBC & BMP: 02/03/17 14:00 02/03/17 14:00 Labs: Abnormal lab results WBC 15.4 K/mcL (4.3-11.1) H 02/03/17 14:00 RBC 3.15 M/mcL (3.82-4.97) L 02/03/17 14:00 Hgb 9.4 g/dL (11.5-15.4) L 02/03/17 14:00 Hct 28.4 % (35.3-44.9) L 02/03/17 14:00 Neutrophils # 12.3 K/mcL (1.6-8.9) H 02/03/17 14:00 ESR 39 mm/hr (0-15) H 01/28/17 04:47 BUN 34 mg/dL (7-20) H 02/03/17 14:00 Creatinine 3.36 mg/dL (0.57-1.11) H 02/03/17 14:00 Est GFR ( Amer) 19 (> 60) L 02/03/17 14:00 Est GFR (Non-Af Amer) 15 (> 60) L 02/03/17 14:00 Glucose 131 mg/dL (70-99) H 02/03/17 14:00 POC Glucose 112 (58-89) H 02/04/17 06:00 Uric Acid 8.5 mg/dL (2.6-6.0) H 01/28/17 06:02 Calcium 8.1 mg/dL (8.6-10.8) L 02/03/17 14:00 Magnesium 1.3 mg/dL (1.6-2.6) L 02/03/17 14:00 Total Bilirubin < 0.2 mg/dL (0.2-1.2) L 01/31/17 04:50 AST 124 Units/L (5-34) H 01/31/17 04:50 Creatine Kinase 1479 Units/L (29-168) H 02/03/17 14:00 C-Reactive Protein 250 mg/L (Less than 5) H 01/28/17 04:47 Serum Total Protein 5.5 g/dL (6.0-8.3) L 01/31/17 04:50 Albumin 2.4 g/dL (3.5-5.0) L 01/31/17 04:50 Albumin/Globulin Ratio 0.8 (1.1-2.2) L 01/31/17 04:50 Ur Specimen Adequacy See below A 01/28/17 05:45 Ur Specific [place] 1.009 (1.010-1.025) L 02/02/17 03:55 Urine Blood Small (Negative) H 02/02/17 03:55 Ur Squamous Epith Cells Many per lpf (None-Few) H 02/02/17 03:55 Urine Opiates Screen Positive ng/mL (Kfxsaq=126) H 01/28/17 05:45 U Benzodiazepines Scrn Positive ng/mL (Jawdgj=276) H 01/28/17 05:45 U Marijuana (THC) Screen Positive ng/mL (Cutoff = 50) H 01/28/17 05:45 - VTE Documentation of Mechanical Device: Intermittent pneumatic compression device Consult Discharge Plan - Plan Referrals: Alka Castanon DO [Primary Care Provider] - Dmitri Powell MD [Partnered Physician] - 02/09/17 2:10 pm
[2017-02-04] MEDS: diazePAM 10 MG TABLET PO SCH ×2 (07:50→21:13)
[2017-02-04] MEDS: Gabapentin 100 MG CAPSULE PO SCH ×3 (07:51→21:12)
[2017-02-04] MEDS: lamoTRIgine 100 MG TABLET PO SCH ×2 (07:51→21:12)
[2017-02-04] MEDS: (Norgestimate-Ethinyl Estradiol [Sprintec 28 Day Tabl) PO SCH (07:55)
[2017-02-04 08:56] LABS: Basophils # 0.1 K/mcL (0.0-0.2); Basophils % 0.4 %; Eosinophils # 0.6 K/mcL (0.0-0.6); Eosinophils % 4.8 %; Hematocrit 27.2 % (35.3-44.9); Hemoglobin 8.7 g/dL (11.5-15.4); Immature Granulocytes % 0.7 % (0-4); Lymphocytes # 3.6 K/mcL (0.6-4.6); Lymphocytes % 26.6 %; Mean Corpuscular Hemoglobin 29.7 pg (28.0-33.3); Mean Corpuscular Volume 92.8 fL (83.0-100.0); Mean Platelet Volume 9.8 fL (9.4-12.4); Monocytes # 1.2 K/mcL (0.0-1.3); Monocytes % 8.7 %; Neutrophils # 7.9 K/mcL (1.6-8.9); Platelet Count 316 K/mcL (140-400); Red Blood Count 2.93 M/mcL (3.82-4.97); Red Cell Distribution Width 13.8 % (11.5-14.5); Segmented Neutrophils % 58.8 %
[2017-02-04 09:12] LABS: Albumin 2.1 g/dL (3.5-5.0); Albumin/Globulin Ratio 0.7 (1.1-2.2); Alkaline Phosphatase 62 Units/L (38-126); Aspartate Amino Transferase 41 Units/L (5-34); BUN/Creatinine Ratio 10 (6-26); Blood Urea Nitrogen 34 mg/dL (7-20); Calcium 8.1 mg/dL (8.6-10.8); Carbon Dioxide 32 mEq/L (19-29); Chloride 102 mEq/L (98-109); Creatine Kinase 919 Units/L (29-168); Glucose 100 mg/dL (70-99); Osmolality,Calculated 300 (280-300); Potassium 4.2 mEq/L (3.5-4.5); Sodium 141 mEq/L (136-145); Total Protein 5.1 g/dL (6.0-8.3); eGFR For African Americans 19 (> 60); eGFR For Non-African Americans 16 (> 60)
[2017-02-04 09:13] LABS: Alanine Aminotransferase < 6 Units/L (0-55); Bilirubin,Total < 0.2 mg/dL (0.2-1.2)
--- NOTE | 2017-02-04 10:24 | Nephrology Progress Note ---
Date of Encounter: 02/04/17 Time of Encounter: 10:22 - Assessment and Plan (1) Acute kidney injury Current Visit: Yes Status: Acute Acute kidney injury Secondary rhabdomyolysis. Current creatinine 3.77, GFR 13. Baseline creatinine 0.80 with GFR greater than 60. 02/02: Creatinine 3.52 down from 3.77 yesterday no improvement in the GFR from 13-15. Creatinine kinase 2044 slowly improving, will require continued IV fluid replacement and close renal monitoring. - Urine output improved to 1800 mL's from 600 the day prior. She has a cumulative positive fluid balance of 6136 mL's. 02/03: Creatinine minimally improved to 3.36, GFR stable at 18, increased urinary output. Patient tolerating oral intake and continued IV fluids. 02/04: Creatinine has minimal improvement of 3.28 and GFR of 16. Very slow progression of improvement in renal function. Continues to receive IV fluids at 75 ML's per hour. Urine recorded at 4050 ML's Plan: - Continue IV fluids D5 half-normal saline- continue renal perfusion - Avoid nephrotoxic medications, renally dose antibiotics - strict intake and output monitoring, daily weights - monitor renal function with a.m. labs (2) Rhabdomyolysis Current Visit: Yes Status: Acute Rhabdomyolysis secondary to compartment syndrome. Status post fasciotomy. Creatinine kinase continues to stay elevated but improved at 919. - Continue IV fluids: D5 half-normal saline at 75 mL to continue improving renal clearance. Qualifiers: Rhabdomyolysis type: traumatic Encounter type: initial encounter Qualified Code(s): T79.6XXA - Traumatic ischemia of muscle, initial encounter (3) Compartment syndrome of left lower extremity Current Visit: Yes Status: Deleted Patient presented to hospital with left lower extremity swelling found to have compartment syndrome and underwent emergent fasciotomy in multiple compartments. - Status post fasciotomy, underwent closure and wound VAC. - Management per primary team - Compartment syndrome Likely the cause of her rhabdomyolysis. Qualifiers: Encounter type: initial encounter Qualified Code(s): T79.A22A - Traumatic compartment syndrome of left lower extremity, initial encounter (4) Nondisplaced fracture of fifth left metatarsal bone Current Visit: Yes Status: Acute Management per primary team. Qualifiers: Encounter type: initial encounter Fracture type: closed Qualified Code(s) : S92.355A - Nondisplaced fracture of fifth metatarsal bone, left foot, initial encounter for closed fracture Subjective Principal diagnosis: SHAKEEL Interval history: Mrs. Calle 36-year-old female has been seen and evaluated at patient bedside this morning. She is doing well and without complaints this morning. She is concerned regarding her renal function. Continued treatment and follow up was discussed. Objective - Vital Signs Vital signs: Vital Signs Temp Pulse Resp BP Pulse Ox 02/04/17 07:36 98.1 F 77 14 114/69 95 02/04/17 03:23 98.4 F 69 14 110/72 96 02/03/17 22:36 97.9 F 77 14 112/75 96 02/03/17 19:28 98.6 F 82 14 116/77 96 02/03/17 15:18 98.8 F 76 18 123/76 95 02/03/17 10:56 98.7 F 84 16 119/81 97 Intake and Output 02/03/17 02/04/17 02/04/17 23:59 07:59 15:59 Intake Total 1000 / 1000 1000 / 1000 600 / 600 Output Total 1200 / 1200 400 / 400 220 / 220 Balance -200 / -200 600 / 600 380 / 380 Intake: IV Fluids 1000 / 1000 1000 / 1000 D5% And 0.45% Nacl 1000 Ml Bag 1000 / 1000 1000 / 1000 1,000 ML @ 100 mls/hr IVC .Q10H JACQUELYN Rx#:[id number] Oral 600 / 600 Output: Urine 1200 / 1200 400 / 400 Wound Drainage 220 / 220 Left Calf 110 / 110 Left Leg 110 / 110 Other: Meal Breakfast Percent of Meal Consumed 80% Blood Glucose* 112 - General Appearance Exam: General: Patient lethargic, awake, oriented 3, interactive, in no acute distress HEENT: Normocephalic, atraumatic, oral mucosa moist, edentulous, neck supple trachea midline no palpable lymphadenopathy, no thyromegaly. Chest: Symmetric bilateral correlating with respiratory effort, effort nonlabored. Cardiac: Regular rate and rhythm, positive S1 and S2. no bruits appreciated bilateral carotids, Radial pulses 2+ bilateral. Respiratory: Clear to auscultation all lung zazueta Abdomen: Soft, nontender, positive bowel sounds, no palpable masses appreciated on examination Extremities: Patient able to move bilateral upper extremities without weakness, patient retains sensation and motor function right lower extremity. Left lower extremity is wrapped post surgery. Toes are exposed demonstrate appropriate circulation and warm, able to actively flex toes, sensation greater in the great toe, diminished in remaining four toes. Neurologic: Face symmetric, as mentioned above - Lab 02/04/17 08:40 02/04/17 08:40 Most recent lab results Calcium 8.1 mg/dL (8.6-10.8) L 02/04/17 08:40 Magnesium 1.3 mg/dL (1.6-2.6) L 02/03/17 14:00 - VTE Documentation of Mechanical Device: Intermittent pneumatic compression device Consult Discharge Plan - Plan Referrals: Alka Castanon DO [Primary Care Provider] - Dmitri Powell MD [Partnered Physician] - 02/09/17 2:10 pm
[2017-02-04] MEDS ORDERED: Magnesium Sulfate 2 GM in D5% in Water 100 ML IVPB SCH (12:15)
[2017-02-04] MEDS: Magnesium Sulfate 2 GM in D5% in Water 100 ML IVPB SCH ×2 (13:51→17:13)
--- NOTE | 2017-02-04 14:56 | Internal Med Progress Note ---
Date of Encounter: 02/04/17 Time of Encounter: 13:00 - Assessment and plan (1) Compartment syndrome Current Visit: Yes Status: Acute Assessment and plan: Patient presented with acute progressive left leg pain, swelling and noted to have rhabdomyolysis, compartment syndrome with associated fifth metatarsal fracture Patient underwent fasciotomy s/p day 5 Had Irrigation , Skin graft and Wound vac placed on 02/02/17 Wound care as per Ortho recommendations Appreciate Ortho input on d/c plan Continue pain control: IV Morphine along with PO Percocet PT/OT evaluation elevation of leg Qualifiers: Compartment syndrome type: traumatic Encounter type: initial encounter Compartment syndrome location: lower extremity Laterality: left Qualified Code(s): T79.A22A - Traumatic compartment syndrome of left lower extremity, initial encounter (2) Acute kidney injury Current Visit: Yes Status: Acute Assessment and plan: Non oliguric Due to severe Rhabdomyolysis peaked at 3.95.. now started trending down sowly..today @ 3.28 Cont IVF.D5 1/2NS monitor renal function Avoid nephrotoxic agents Renally dosed neurontin (3) Closed nondisplaced fracture of fifth left metatarsal bone Current Visit: Yes Status: Acute Assessment and plan: traumatic nonoperative management with non-weight bearing, pain control, PT/OT Qualifiers: Encounter type: initial encounter Qualified Code(s): S92.355A - Nondisplaced fracture of fifth metatarsal bone, left foot, initial encounter for closed fracture (4) Rhabdomyolysis Current Visit: Yes Status: Acute Assessment and plan: Serum CK improving creatinine improving slowly d/c IVF .. waiting on today's labs avoid nephrotoxic agents Monitor intake and output Qualifiers: Rhabdomyolysis type: traumatic Encounter type: initial encounter Qualified Code(s): T79.6XXA - Traumatic ischemia of muscle, initial encounter (5) Polysubstance abuse Current Visit: Yes Status: Chronic Assessment and plan: Urine drug screen positive for Marijuana, BZD, opiates; social worker health services consult for safe discharge counseled to quit drugs.. Recommended to go for rehab (6) Depression Current Visit: Yes Status: Chronic Assessment and plan: continue home med seroquel and buspar Qualifiers: Depression Type: major depressive disorder Major depression recurrence: recurrent Active/Remission status: remission status unspecified Qualified Code(s): F33.9 - Major depressive disorder, recurrent, unspecified (7) DVT prophylaxis Current Visit: Yes Status: Acute Assessment and plan: -continue with EPCD - Subjective Interval history: This is a 35 y/o F with known PMH of poly substance abuse who admitted here Left lower extremity compartment syndrome had fasciotomy done on 01/30/17. She also happened to have worsening SHAKEEL due to severe rhabdomyolysis. She is alert, awake and O x 3. Denied any CP / SOB. Tolerating PO intake well - Constitutional Vitals: Temp Pulse Resp BP Pulse Ox 98.9 F 78 14 119/82 100 02/04/17 11:16 02/04/17 11:16 02/04/17 11:16 02/04/17 11:16 02/04/17 14:09 General appearance: Present: A&O X 3, no acute distress, answers questions appropriately - Head Head exam: Present: atraumatic, normal inspection - Respiratory Respiratory exam: Present: decreased breath sounds. Absent: rales, respiratory distress, rhonchi, wheezes - Cardiovascular Cardiovascular exam: Present: RRR, +S1, +S2. Absent: diastolic murmur, gallop, rubs, systolic murmur - GI/Abdominal GI/Abdominal exam: Present: normal bowel sounds, soft. Absent: distended, rebound, rigid, tenderness - Extremities Exam Extremities exam: Absent: calf tenderness Additional comments: dressing and wound vac placed on Left thigh.. Neuro vascularly intact distally. - Back Exam Back exam: Absent: CVA tenderness (L), CVA tenderness (R) - Neurological Exam Neurological exam: Present: alert, oriented X3 - Psychiatric Psychiatric exam: Present: normal affect, normal mood Internal Medicine: Result - Labs CBC & Chem 7: 02/04/17 08:40 02/04/17 08:40 Labs: Short CBC 02/04/17 Range/Units 08:40 WBC 13.4 H (4.3-11.1) K/mcL Hgb 8.7 L (11.5-15.4) g/dL Hct 27.2 L (35.3-44.9) % Plt Count 316 (140-400) K/mcL Neutrophils # 7.9 (1.6-8.9) K/mcL BMP 02/04/17 08:40 Sodium 141 Potassium 4.2 Chloride 102 Carbon Dioxide 32 H BUN 34 H Creatinine 3.28 H Glucose 100 H Calcium 8.1 L Liver Function 02/04/17 Range/Units 08:40 Total Bilirubin < 0.2 L (0.2-1.2) mg/dL AST 41 H (5-34) Units/L ALT < 6 (0-55) Units/L Alkaline Phosphatase 62 (38-126) Units/L Albumin 2.1 L (3.5-5.0) g/dL - VTE Documentation of Mechanical Device: Intermittent pneumatic compression device Consult Discharge Plan - Plan Referrals: Alka Castanon DO [Primary Care Provider] - Dmitri Powell MD [Partnered Physician] - 02/09/17 2:10 pm
[2017-02-04] MEDS: Ondansetron 4 MG/2 ML VIAL IVP PRN ×2 (18:52→20:47)
[2017-02-04] MEDS: Famotidine 20 MG TABLET PO SCH (21:12)
[2017-02-04] MEDS: traZODone 50 MG TABLET PO SCH (21:12)
[2017-02-05] MEDS: *HR* Morphine 2 MG/ML SYRINGE IVP PRN ×3 (00:54→07:40)
[2017-02-05] MEDS: D5% in 0.45% NACL 1,000 ML IVC SCH ×2 (01:37→11:50)
[2017-02-05] MEDS: Ondansetron 4 MG/2 ML VIAL IVP PRN ×4 (03:17→20:37)
[2017-02-05 04:31] LABS: Calcium 8.4 mg/dL (8.6-10.8); Magnesium 2.2 mg/dL (1.6-2.6); Potassium 4.1 mEq/L (3.5-4.5)
[2017-02-05] MEDS: *HR* Heparin 5,000 UNIT/ML VIAL SQ SCH ×2 (06:59→17:11)
[2017-02-05] MEDS: Silvasorb 44.4 ML TUBE TP ONE ×2 (07:00→08:27)
--- NOTE | 2017-02-05 07:33 | Orthopedics Progress Note ---
Date of Encounter: 02/05/17 Time of Encounter: 07:28 Subjective Principal diagnosis: SHAKEEL Interval history: S: No new complaints. O: Afebrile and vital signs are stable Dressing is changed and the skin graft is taking very nicely on the lateral left leg A thin layer of Silvadene was applied and covered with Adaptic, gauze, ABDs, Kerlix, and her splint The donor site looks good and is left open to air covered with a sheet of Xeroform She cannot extend the toes She does demonstrate weak toe flexion The plantar surface of the foot does have altered sensation but is intact No sensation along the dorsal foot The toes are warm and well perfused A: Postoperative day 3 after split thickness skin grafting to cover the left fasciotomy wound. Foot drop present preoperatively. Proximal fifth metatarsal fracture, nondisplaced P: Skin graft is taking nicely Recommend nursing for daily dressing changes upon discharge Once daily GENTLY take down the lower leg dressing taking care not to shear off the skin graft. Apply a very thin layer of Silvadene topically to the skin graft Recover the skin graft with a large sheet of Adaptic followed by 4 x 4's and ABDs and wrapped snugly with Kerlix. Then placed back in the fiberglass lower leg splint and cover snugly with an Rolando wrap. Regarding the donor site on the thigh, leave the Xeroform in place but leave otherwise open to air so that it will dry out. Nonoperative management for the left fifth metatarsal fracture with nonweightbearing on the left lower extremity. It is impossible to tell at this point if she will regain any neurologic recovery but if so this could take months. Objective Vital signs: Vital Signs Temp Pulse Resp BP Pulse Ox 02/05/17 03:18 98.5 F 96 20 128/93 93 02/04/17 20:07 98.0 F 81 13 105/73 97 02/04/17 14:09 100 02/04/17 11:16 98.9 F 78 14 119/82 100 02/04/17 07:36 98.1 F 77 14 114/69 95 Intake and Output 02/04/17 02/04/17 02/05/17 15:59 23:59 07:59 Intake Total 1600 / 1600 104 / 104 Output Total 765 / 765 250 / 250 900 / 900 Balance 835 / 835 -146 / -146 -900 / -900 Intake: IV Fluids 1000 / 1000 104 / 104 D5% And 0.45% Nacl 1000 Ml Bag 1000 / 1000 1,000 ML @ 100 mls/hr IVC .Q10H JACQUELYN Rx#:[id number] Magnesium Sulfate 2 GM In 104 / 104 Dextrose 5% 100 ML @ 26 mls/hr IVPB Q4H JACQUELYN Rx#:[id number] Oral 600 / 600 Output: Urine 400 / 400 250 / 250 900 / 900 Wound Drainage 365 / 365 Left Calf 110 / 110 Left Leg 255 / 255 Other: Meal Breakfast Percent of Meal Consumed 80% - Labs CBC & BMP: 02/04/17 08:40 02/05/17 03:20 Labs: Abnormal lab results WBC 13.4 K/mcL (4.3-11.1) H 02/04/17 08:40 RBC 2.93 M/mcL (3.82-4.97) L 02/04/17 08:40 Hgb 8.7 g/dL (11.5-15.4) L 02/04/17 08:40 Hct 27.2 % (35.3-44.9) L 02/04/17 08:40 ESR 39 mm/hr (0-15) H 01/28/17 04:47 Carbon Dioxide 31 mEq/L (19-29) H 02/05/17 03:20 BUN 33 mg/dL (7-20) H 02/05/17 03:20 Creatinine 3.08 mg/dL (0.57-1.11) H 02/05/17 03:20 Est GFR ( Amer) 21 (> 60) L 02/05/17 03:20 Est GFR (Non-Af Amer) 17 (> 60) L 02/05/17 03:20 POC Glucose 112 (58-89) H 02/04/17 06:00 Uric Acid 8.5 mg/dL (2.6-6.0) H 01/28/17 06:02 Calcium 8.4 mg/dL (8.6-10.8) L 02/05/17 03:20 Total Bilirubin < 0.2 mg/dL (0.2-1.2) L 02/04/17 08:40 AST 41 Units/L (5-34) H 02/04/17 08:40 Creatine Kinase 627 Units/L (29-168) H 02/05/17 03:20 C-Reactive Protein 250 mg/L (Less than 5) H 01/28/17 04:47 Serum Total Protein 5.1 g/dL (6.0-8.3) L 02/04/17 08:40 Albumin 2.1 g/dL (3.5-5.0) L 02/04/17 08:40 Albumin/Globulin Ratio 0.7 (1.1-2.2) L 02/04/17 08:40 Ur Specimen Adequacy See below A 01/28/17 05:45 Ur Specific [place] 1.009 (1.010-1.025) L 02/02/17 03:55 Urine Blood Small (Negative) H 02/02/17 03:55 Ur Squamous Epith Cells Many per lpf (None-Few) H 02/02/17 03:55 Urine Opiates Screen Positive ng/mL (Fralyq=612) H 01/28/17 05:45 U Benzodiazepines Scrn Positive ng/mL (Dedxfc=246) H 01/28/17 05:45 U Marijuana (THC) Screen Positive ng/mL (Cutoff = 50) H 01/28/17 05:45 - VTE Documentation of Mechanical Device: Intermittent pneumatic compression device Consult Discharge Plan - Plan Additional Instructions: Wound care instructions: Recommend nursing for daily dressing changes of the left lower leg upon discharge Once daily GENTLY take down the lower leg dressing taking care not to shear off the skin graft. Apply a very thin layer of Silvadene topically to the skin graft Recover the skin graft with a large sheet of Adaptic followed by 4 x 4's and ABDs and wrap snugly with Kerlix. Then placed back in the fiberglass lower leg splint and cover snugly with an Rolando wrap. Regarding the donor site on the thigh, leave the Xeroform in place but leave otherwise open to air so that it will dry out. Nonoperative management for the left fifth metatarsal fracture with nonweightbearing on the left lower extremity. Activity: Strict NWB to the left lower extremity. Keep splint in place acccept for dressing changes. Followup: Follow up with Dr. Valle at [facility] on February 15 or for a wound evaluation. Referrals: Alka Castanon DO [Primary Care Provider] - Dmitri Powell MD [Partnered Physician] - 02/09/17 2:10 pm
[2017-02-05] MEDS: Gabapentin 100 MG CAPSULE PO SCH ×3 (08:33→20:12)
[2017-02-05] MEDS: diazePAM 10 MG TABLET PO SCH ×2 (08:34→20:13)
[2017-02-05] MEDS: lamoTRIgine 100 MG TABLET PO SCH ×2 (08:34→20:12)
[2017-02-05] MEDS: (Norgestimate-Ethinyl Estradiol [Sprintec 28 Day Tabl) PO SCH (08:34)
[2017-02-05] MEDS: *HR* OxyCODONE/APAP 7.5/325 TABLET PO PRN ×2 (09:20→20:12)
--- NOTE | 2017-02-05 09:28 | Nephrology Progress Note ---
Date of Encounter: 02/05/17 Time of Encounter: 08:05 - Assessment and Plan (1) Acute kidney injury Current Visit: Yes Status: Acute Nonoliguric SHAKEEL likely ATN from severe Rhabdo. Agree with stopping IVF so as to avoid the risk of inducing hypervolemia in the setting of ATN. See has not needed urgent TECHNICAL ADJUSTER when my colleague was on-call and given that she is slowly improving, she does not need it today. Her trend is clear that she is improving in terms of her renal function. I suspect that given the severe degree of renal dysfunction that she may not have complete renal recovery and likely to develop CKD. She was originally consulted by my colleague Dr. Flower, so the pt should follow up with her in clinic with close lab monitoring. Will monitor the Ca++ and K+ off IVF. Continue to follow a renal protective strategy by avoid nephrotoxins, by dosing renally cleared Rx by GFR (such as the Gabapentin) and to keep strict I/Os and daily weights. (2) Rhabdomyolysis Current Visit: Yes Status: Acute See above Qualifiers: Rhabdomyolysis type: traumatic Encounter type: initial encounter Qualified Code(s): T79.6XXA - Traumatic ischemia of muscle, initial encounter (3) Hypoalbuminemia Current Visit: Yes Status: Acute Recommend increased protein in diet such as Nepro shakes 1-3 cans per day. (4) Hyperuricemia Current Visit: Yes Status: Acute Noted to be at >8. Will recheck tomorrow now that SCr has trended better. Could have been elevated simply d/t poor renal clearance. Subjective Principal diagnosis: SHAKEEL Interval history: Pt was s/e earlier today. She did not affirm metallic tastes, diminished appetite. She did report having some nausea and an episode of emesis yesterday after trying to eat a large meal brought into the hospital. Today she said her nausea is improving. She voided having constipation. Objective - Vital Signs Vital signs: Vital Signs Temp Pulse Resp BP Pulse Ox 02/05/17 08:13 97 02/05/17 07:32 98.3 F 89 15 113/75 92 02/05/17 03:18 98.5 F 96 20 128/93 93 02/04/17 20:07 98.0 F 81 13 105/73 97 02/04/17 14:09 100 02/04/17 11:16 98.9 F 78 14 119/82 100 Intake and Output 02/04/17 02/05/17 02/05/17 23:59 07:59 15:59 Intake Total 104 / 104 Output Total 250 / 250 900 / 900 Balance -146 / -146 -900 / -900 Intake: IV Fluids 104 / 104 Magnesium Sulfate 2 GM In 104 / 104 Dextrose 5% 100 ML @ 26 mls/hr IVPB Q4H JACQUELYN Rx#:[id number] Output: Urine 250 / 250 900 / 900 - General Appearance General appearance: Present: well-developed, well-nourished, appears started age , obese EENT: Present: ATNC, PERRL, mucous membranes moist Neck: Present: supple Respiratory: Present: clear Cardiology: Present: no edema, normal S1, normal S2 Gastrointestinal: Present: normoactive bowel sounds, no tenderness, no guarding , obese Additional Comments: Left lower extremity was wrapped Neurologic: Present: no focal deficit, no asterixis, alert and oriented x3 Additional Comments: Left lower extremity was wrapped and clean/dry Psychiatric: Present: mood/affect appropriate, cooperative - Lab 02/04/17 08:40 02/05/17 03:20 Most recent lab results Calcium 8.4 mg/dL (8.6-10.8) L 02/05/17 03:20 Magnesium 2.2 mg/dL (1.6-2.6) 02/05/17 03:20 - VTE Documentation of Mechanical Device: Intermittent pneumatic compression device Consult Discharge Plan - Plan Additional Instructions: Wound care instructions: Recommend nursing for daily dressing changes of the left lower leg upon discharge Once daily GENTLY take down the lower leg dressing taking care not to shear off the skin graft. Apply a very thin layer of Silvadene topically to the skin graft Recover the skin graft with a large sheet of Adaptic followed by 4 x 4's and ABDs and wrap snugly with Kerlix. Then placed back in the fiberglass lower leg splint and cover snugly with an Rolando wrap. Regarding the donor site on the thigh, leave the Xeroform in place but leave otherwise open to air so that it will dry out. Nonoperative management for the left fifth metatarsal fracture with nonweightbearing on the left lower extremity. Activity: Strict NWB to the left lower extremity. Keep splint in place acccept for dressing changes. Followup: Follow up with Dr. Valle at [facility] on February 15 or for a wound evaluation. Referrals: Alka Castanon DO [Primary Care Provider] - Dmitri Powell MD [Partnered Physician] - 02/09/17 2:10 pm
--- NOTE | 2017-02-05 12:18 | Internal Med Progress Note ---
Date of Encounter: 02/05/17 Time of Encounter: 11:20 - Assessment and plan (1) Compartment syndrome Current Visit: Yes Status: Acute Assessment and plan: Patient presented with acute progressive left leg pain, swelling and noted to have rhabdomyolysis, compartment syndrome with associated fifth metatarsal fracture Patient underwent fasciotomy on Had Irrigation , Skin graft and Wound vac placed on 02/02/17 Wound vac removed today by Ortho Wound care as per Ortho recommendations Continue pain control: IV Morphine along with PO Percocet PT/OT evaluation elevation of leg Since pt is sleepy most of the time - so will d/c IV Morphine Cont Percocet PRN only Qualifiers: Compartment syndrome type: traumatic Encounter type: initial encounter Compartment syndrome location: lower extremity Laterality: left Qualified Code(s): T79.A22A - Traumatic compartment syndrome of left lower extremity, initial encounter (2) Acute kidney injury Current Visit: Yes Status: Acute Assessment and plan: Non oliguric Due to severe Rhabdomyolysis peaked at 3.95.. now started trending down sowly..today @ 3.0 Pt is tolerating PO intake well she had +1289 fluid balance y/d d/c IV fluids today monitor renal function Avoid nephrotoxic agents Renally dosed neurontin (3) Closed nondisplaced fracture of fifth left metatarsal bone Current Visit: Yes Status: Acute Assessment and plan: traumatic nonoperative management with non-weight bearing, pain control, PT/OT Qualifiers: Encounter type: initial encounter Qualified Code(s): S92.355A - Nondisplaced fracture of fifth metatarsal bone, left foot, initial encounter for closed fracture (4) Rhabdomyolysis Current Visit: Yes Status: Acute Assessment and plan: Serum CK improving creatinine improving slowly d/c IVF .. waiting on today's labs avoid nephrotoxic agents Monitor intake and output Qualifiers: Rhabdomyolysis type: traumatic Encounter type: initial encounter Qualified Code(s): T79.6XXA - Traumatic ischemia of muscle, initial encounter (5) Polysubstance abuse Current Visit: Yes Status: Chronic Assessment and plan: Urine drug screen positive for Marijuana, BZD, opiates; social service manager consult for safe discharge counseled to quit drugs.. Recommended to go for rehab (6) Depression Current Visit: Yes Status: Chronic Assessment and plan: continue home med seroquel and buspar Qualifiers: Depression Type: major depressive disorder Major depression recurrence: recurrent Active/Remission status: remission status unspecified Qualified Code(s): F33.9 - Major depressive disorder, recurrent, unspecified (7) DVT prophylaxis Current Visit: Yes Status: Acute Assessment and plan: Will place her on SQ Heparin - Subjective Interval history: This is a 35 y/o F with known PMH of poly substance abuse who admitted here Left lower extremity compartment syndrome had fasciotomy done on 01/30/17. She also happened to have worsening SHAKEEL due to severe rhabdomyolysis. She is semi sleepy, arousable. . Denied any CP / SOB. Tolerating PO intake well - Constitutional Vitals: Temp Pulse Resp BP Pulse Ox 97.7 F 92 16 109/76 94 02/05/17 11:14 02/05/17 11:14 02/05/17 11:14 02/05/17 11:14 02/05/17 11:14 General appearance: Present: A&O X 3, no acute distress, answers questions appropriately - Head Head exam: Present: atraumatic, normal inspection - Respiratory Respiratory exam: Present: decreased breath sounds. Absent: accessory muscle use, rales, rhonchi, wheezes - Cardiovascular Cardiovascular exam: Present: RRR, +S1, +S2. Absent: diastolic murmur, gallop, rubs, systolic murmur - GI/Abdominal GI/Abdominal exam: Present: normal bowel sounds, soft, no peritoneal signs. Absent: distended, tenderness - Extremities Exam Extremities exam: Absent: calf tenderness Additional comments: Dressing placed over Left lower leg..clean skin graft area over Left thigh region. Woun vac is off today - Neurological Exam Neurological exam: Present: alert, oriented X3 - Psychiatric Psychiatric exam: Present: depressed Internal Medicine: Result - Labs CBC & Chem 7: 02/04/17 08:40 02/05/17 03:20 Labs: BMP 02/05/17 03:20 Sodium 139 Potassium 4.1 Chloride 100 Carbon Dioxide 31 H BUN 33 H Creatinine 3.08 H Glucose 90 Calcium 8.4 L - VTE Documentation of Mechanical Device: Intermittent pneumatic compression device Consult Discharge Plan - Plan Additional Instructions: Wound care instructions: Recommend nursing for daily dressing changes of the left lower leg upon discharge Once daily GENTLY take down the lower leg dressing taking care not to shear off the skin graft. Apply a very thin layer of Silvadene topically to the skin graft Recover the skin graft with a large sheet of Adaptic followed by 4 x 4's and ABDs and wrap snugly with Kerlix. Then placed back in the fiberglass lower leg splint and cover snugly with an Rolando wrap. Regarding the donor site on the thigh, leave the Xeroform in place but leave otherwise open to air so that it will dry out. Nonoperative management for the left fifth metatarsal fracture with nonweightbearing on the left lower extremity. Activity: Strict NWB to the left lower extremity. Keep splint in place acccept for dressing changes. Followup: Follow up with Dr. Valle at [facility] on February 15 or for a wound evaluation. Referrals: Alka Castanon DO [Primary Care Provider] - Dmitri Powell MD [Partnered Physician] - 02/09/17 2:10 pm
[2017-02-05] MEDS ORDERED: *HR* OxyCODONE/APAP 7.5/325 TABLET PO PRN (12:29)
[2017-02-05] MEDS: traZODone 50 MG TABLET PO SCH ×2 (20:12→20:31)
[2017-02-05] MEDS: Famotidine 20 MG TABLET PO SCH (20:13)
[2017-02-06] MEDS: *HR* OxyCODONE/APAP 7.5/325 TABLET PO PRN ×5 (03:45→21:36)
[2017-02-06 05:21] LABS: Basophils % 0.1 %; Eosinophils # 0.1 K/mcL (0.0-0.6); Hematocrit 26.5 % (35.3-44.9); Hemoglobin 8.7 g/dL (11.5-15.4); Immature Granulocytes % 0.7 % (0-4); Lymphocytes # 2.5 K/mcL (0.6-4.6); Lymphocytes % 35.7 %; Mean Corpuscular HGB Conc 32.8 g/dL (31.6-35.5); Mean Corpuscular Volume 91.4 fL (83.0-100.0); Mean Platelet Volume 9.5 fL (9.4-12.4); Monocytes # 0.8 K/mcL (0.0-1.3); Monocytes % 11.7 %; Neutrophils # 3.5 K/mcL (1.6-8.9); Nucleated Red Blood Cells 0.3 /100 WBC (0); Platelet Count 291 K/mcL (140-400); Red Cell Distribution Width 13.9 % (11.5-14.5); Segmented Neutrophils % 49.8 %
[2017-02-06 05:35] LABS: Albumin 2.2 g/dL (3.5-5.0); Calcium 8.2 mg/dL (8.6-10.8); Magnesium 1.4 mg/dL (1.6-2.6); Phosphorous 4.2 mg/dL (2.3-4.7); Potassium 4.6 mEq/L (3.5-4.5); Uric Acid 6.7 mg/dL (2.6-6.0)
[2017-02-06] MEDS: *HR* Heparin 5,000 UNIT/ML VIAL SQ SCH ×2 (06:03→17:00)
[2017-02-06] MEDS: Gabapentin 100 MG CAPSULE PO SCH ×3 (09:55→20:20)
[2017-02-06] MEDS: lamoTRIgine 100 MG TABLET PO SCH ×2 (09:55→20:19)
[2017-02-06] MEDS: diazePAM 10 MG TABLET PO SCH ×2 (09:56→20:21)
[2017-02-06] MEDS: (Norgestimate-Ethinyl Estradiol [Sprintec 28 Day Tabl) PO SCH (09:56)
--- NOTE | 2017-02-06 10:01 | Event Note ---
Date of Encounter: 02/06/17 Time of Encounter: 10:00 Nephrology Chart review Her SCr continues to slowly trend better. Doing better from a nephrology perspective. I will be available this weekend if needed. Thank you.
--- NOTE | 2017-02-06 16:10 | Internal Med Progress Note ---
Date of Encounter: 02/06/17 Time of Encounter: 16:08 - Assessment and plan (1) Compartment syndrome Current Visit: Yes Status: Acute Assessment and plan: Patient underwent fasciotomy on Had irrigation , skin graft and Wound vac placed on 02/02/17 Wound vac removed on 02/05/17 by Ortho Wound care as per Ortho recommendations PT/OT evaluation elevation of leg Cont Percocet PRN only Qualifiers: Compartment syndrome type: traumatic Encounter type: initial encounter Compartment syndrome location: lower extremity Laterality: left Qualified Code(s): T79.A22A - Traumatic compartment syndrome of left lower extremity, initial encounter (2) Acute kidney injury Current Visit: Yes Status: Acute Assessment and plan: Non oliguric Due to severe Rhabdomyolysis peaked at 3.95.. now started trending down sowly..today @ 2.8 Pt is tolerating PO intake well had -1266 fluid balance y/d monitor renal function Avoid nephrotoxic agents Renally dosed neurontin (3) Closed nondisplaced fracture of fifth left metatarsal bone Current Visit: Yes Status: Acute Assessment and plan: traumatic nonoperative management with non-weight bearing, pain control, PT/OT Qualifiers: Encounter type: initial encounter Qualified Code(s): S92.355A - Nondisplaced fracture of fifth metatarsal bone, left foot, initial encounter for closed fracture (4) Rhabdomyolysis Current Visit: Yes Status: Acute Assessment and plan: Serum CK improving creatinine improving slowly d/c IVF .. waiting on today's labs avoid nephrotoxic agents Monitor intake and output Qualifiers: Rhabdomyolysis type: traumatic Encounter type: initial encounter Qualified Code(s): T79.6XXA - Traumatic ischemia of muscle, initial encounter (5) Polysubstance abuse Current Visit: Yes Status: Chronic Assessment and plan: Urine drug screen positive for Marijuana, BZD, opiates; home health care social worker consult for safe discharge counseled to quit drugs.. Recommended to go for rehab (6) Depression Current Visit: Yes Status: Chronic Assessment and plan: continue home med seroquel and buspar Qualifiers: Depression Type: major depressive disorder Major depression recurrence: recurrent Active/Remission status: remission status unspecified Qualified Code(s): F33.9 - Major depressive disorder, recurrent, unspecified (7) DVT prophylaxis Current Visit: Yes Status: Acute Assessment and plan: on SQ Heparin - Subjective Interval history: This is a 35 y/o F with known PMH of poly substance abuse who admitted here Left lower extremity compartment syndrome had fasciotomy done on 01/30/17. She also happened to have worsening SHAKEEL due to severe rhabdomyolysis. Today pt is more alert, awake and O x 3. Denied any CP / SOB. She happened to have an unwitnessed fall this morning. But pt denied any head trauma.. - Constitutional Vitals: Temp Pulse Resp BP Pulse Ox 97.6 F 93 16 97/55 94 02/06/17 10:46 02/06/17 10:46 02/06/17 10:46 02/06/17 10:46 02/06/17 10:46 General appearance: Present: A&O X 3, no acute distress, answers questions appropriately - Head Head exam: Present: atraumatic, normal inspection - Neck Neck exam general surgery: Present: supple - Respiratory Respiratory exam: Present: decreased breath sounds. Absent: rales, respiratory distress, rhonchi, wheezes - Cardiovascular Cardiovascular exam: Present: RRR, +S1, +S2. Absent: systolic murmur - GI/Abdominal GI/Abdominal exam: Present: normal bowel sounds, soft, no peritoneal signs. Absent: distended, tenderness - Extremities Exam Extremities exam: Absent: calf tenderness, pedal edema Additional comments: Dressing placed over Left lower leg..clean skin graft area over Left thigh region - Back Exam Back exam: Absent: CVA tenderness (L), CVA tenderness (R) - Neurological Exam Neurological exam: Present: alert, oriented X3 - Psychiatric Psychiatric exam: Present: depressed Internal Medicine: Result - Labs CBC & Chem 7: 02/06/17 05:17 02/06/17 05:17 Labs: Short CBC 02/06/17 Range/Units 05:17 WBC 7.1 (4.3-11.1) K/mcL Hgb 8.7 L (11.5-15.4) g/dL Hct 26.5 L (35.3-44.9) % Plt Count 291 (140-400) K/mcL Neutrophils # 3.5 (1.6-8.9) K/mcL BMP 02/06/17 05:17 Sodium 138 Potassium 4.6 H Chloride 100 Carbon Dioxide 32 H BUN 32 H Creatinine 2.88 H Glucose 75 Calcium 8.2 L Liver Function 02/06/17 Range/Units 05:17 Albumin 2.2 L (3.5-5.0) g/dL - VTE Documentation of Mechanical Device: Intermittent pneumatic compression device Consult Discharge Plan - Plan Additional Instructions: Wound care instructions: Recommend nursing for daily dressing changes of the left lower leg upon discharge Once daily GENTLY take down the lower leg dressing taking care not to shear off the skin graft. Apply a very thin layer of Silvadene topically to the skin graft Recover the skin graft with a large sheet of Adaptic followed by 4 x 4's and ABDs and wrap snugly with Kerlix. Then placed back in the fiberglass lower leg splint and cover snugly with an Rolando wrap. Regarding the donor site on the thigh, leave the Xeroform in place but leave otherwise open to air so that it will dry out. Nonoperative management for the left fifth metatarsal fracture with nonweightbearing on the left lower extremity. Activity: Strict NWB to the left lower extremity. Keep splint in place acccept for dressing changes. Followup: Follow up with Dr. Valle at [facility] on February 15 or for a wound evaluation. Referrals: Alka Castanon DO [Primary Care Provider] - Dmitri Powell MD [Partnered Physician] - 02/09/17 2:10 pm
[2017-02-06] MEDS: Famotidine 20 MG TABLET PO SCH (20:20)
[2017-02-06] MEDS: traZODone 50 MG TABLET PO SCH (20:21)
[2017-02-06] MEDS: tiZANidine 4 MG TABLET PO PRN (20:35)
[2017-02-06] MEDS ORDERED: 0.9 % Sodium Chloride 500 ML IVC ONE (23:26)
[2017-02-07] MEDS ORDERED: 0.9 % Sodium Chloride 500 ML IVC ONE (03:35)
[2017-02-07] MEDS: *HR* OxyCODONE/APAP 7.5/325 TABLET PO PRN ×4 (05:02→19:21)
[2017-02-07 05:18] LABS: Basophils % 0.2 %; Eosinophils # 0.2 K/mcL (0.0-0.6); Eosinophils % 2.9 %; Hematocrit 23.9 % (35.3-44.9); Hemoglobin 7.8 g/dL (11.5-15.4); Lymphocytes # 2.8 K/mcL (0.6-4.6); Lymphocytes % 33.7 %; Mean Corpuscular HGB Conc 32.6 g/dL (31.6-35.5); Mean Corpuscular Hemoglobin 30.4 pg (28.0-33.3); Mean Platelet Volume 9.3 fL (9.4-12.4); Monocytes # 0.8 K/mcL (0.0-1.3); Monocytes % 9.8 %; Neutrophils # 4.3 K/mcL (1.6-8.9); Platelet Count 296 K/mcL (140-400); Red Blood Count 2.57 M/mcL (3.82-4.97); Segmented Neutrophils % 52.4 %
[2017-02-07 05:30] LABS: Potassium 4.4 mEq/L (3.5-4.5)
[2017-02-07] MEDS: *HR* Heparin 5,000 UNIT/ML VIAL SQ SCH ×2 (06:34→16:47)
[2017-02-07] MEDS: lamoTRIgine 100 MG TABLET PO SCH ×2 (08:30→22:48)
[2017-02-07] MEDS: diazePAM 10 MG TABLET PO SCH ×2 (08:30→22:45)
[2017-02-07] MEDS: Gabapentin 100 MG CAPSULE PO SCH ×3 (08:30→22:43)
[2017-02-07] MEDS: (Norgestimate-Ethinyl Estradiol [Sprintec 28 Day Tabl) PO SCH (08:31)
--- NOTE | 2017-02-07 15:28 | Internal Med Progress Note ---
Date of Encounter: 02/07/17 Time of Encounter: 14:20 - Assessment and plan (1) Compartment syndrome Current Visit: Yes Status: Acute Assessment and plan: Patient underwent fasciotomy on Had irrigation , skin graft and Wound vac placed on 02/02/17 Wound vac removed on 02/05/17 by Ortho Wound care as per Ortho recommendations PT/OT evaluation elevation of leg Cont Percocet PRN only Qualifiers: Compartment syndrome type: traumatic Encounter type: initial encounter Compartment syndrome location: lower extremity Laterality: left Qualified Code(s): T79.A22A - Traumatic compartment syndrome of left lower extremity, initial encounter (2) Acute kidney injury Current Visit: Yes Status: Acute Assessment and plan: Non oliguric Due to severe Rhabdomyolysis peaked at 3.95.. now started trending down sowly..today @ 2.72 Pt is tolerating PO intake well will place her on maintenance IV fluids monitor renal function Avoid nephrotoxic agents Renally dosed neurontin (3) Hypotension Current Visit: Yes Status: Acute Assessment and plan: Improved..placed on IV fluids Qualifiers: Qualified Code(s): I95.9 - Hypotension, unspecified (4) Closed nondisplaced fracture of fifth left metatarsal bone Current Visit: Yes Status: Acute Assessment and plan: traumatic nonoperative management with non-weight bearing, pain control, PT/OT Qualifiers: Encounter type: initial encounter Qualified Code(s): S92.355A - Nondisplaced fracture of fifth metatarsal bone, left foot, initial encounter for closed fracture (5) Rhabdomyolysis Current Visit: Yes Status: Acute Assessment and plan: Serum CK improving creatinine improving slowly d/c IVF .. waiting on today's labs avoid nephrotoxic agents Monitor intake and output Qualifiers: Rhabdomyolysis type: traumatic Encounter type: initial encounter Qualified Code(s): T79.6XXA - Traumatic ischemia of muscle, initial encounter (6) Polysubstance abuse Current Visit: Yes Status: Chronic (7) Depression Current Visit: Yes Status: Chronic Assessment and plan: continue home med seroquel and buspar Qualifiers: Depression Type: major depressive disorder Major depression recurrence: recurrent Active/Remission status: remission status unspecified Qualified Code(s): F33.9 - Major depressive disorder, recurrent, unspecified (8) DVT prophylaxis Current Visit: Yes Status: Acute Assessment and plan: on SQ Heparin - Subjective Interval history: This is a 35 y/o F with known PMH of poly substance abuse who admitted here Left lower extremity compartment syndrome had fasciotomy done on 01/30/17. She also happened to have worsening SHAKEEL due to severe rhabdomyolysis. Pt happened to have low BP last night..which resoleved with fluid bolus. Today her BP seems to be stable. Today pt is more alert, awake and O x 3. Denied any CP / SOB. - Constitutional Vitals: Temp Pulse Resp BP Pulse Ox 98.6 F 81 16 104/68 94 02/07/17 10:07 02/07/17 10:07 02/07/17 10:07 02/07/17 10:07 02/07/17 10:07 General appearance: Present: A&O X 3, no acute distress, answers questions appropriately - Head Head exam: Present: atraumatic, normal inspection - Neck Neck exam general surgery: Present: supple - Respiratory Respiratory exam: Present: decreased breath sounds. Absent: rales, respiratory distress, rhonchi, wheezes - Cardiovascular Cardiovascular exam: Present: RRR, +S1, +S2. Absent: diastolic murmur, gallop, rubs, systolic murmur - GI/Abdominal GI/Abdominal exam: Present: soft. Absent: rebound, rigid, tenderness - Extremities Exam Extremities exam: Present: pedal edema, tenderness. Absent: calf tenderness Additional comments: Dressing placed over Left lower leg..clean skin graft area over Left thigh region Internal Medicine: Result - Labs CBC & Chem 7: 02/07/17 05:00 02/07/17 05:00 Labs: Short CBC 02/07/17 Range/Units 05:00 WBC 8.2 (4.3-11.1) K/mcL Hgb 7.8 L (11.5-15.4) g/dL Hct 23.9 L (35.3-44.9) % Plt Count 296 (140-400) K/mcL Neutrophils # 4.3 (1.6-8.9) K/mcL BMP 02/07/17 05:00 Sodium 141 Potassium 4.4 Chloride 102 Carbon Dioxide 29 BUN 30 H Creatinine 2.72 H Glucose 97 Calcium 8.0 L - VTE Documentation of Mechanical Device: Intermittent pneumatic compression device Consult Discharge Plan - Plan Additional Instructions: Wound care instructions: Recommend nursing for daily dressing changes of the left lower leg upon discharge Once daily GENTLY take down the lower leg dressing taking care not to shear off the skin graft. Apply a very thin layer of Silvadene topically to the skin graft Recover the skin graft with a large sheet of Adaptic followed by 4 x 4's and ABDs and wrap snugly with Kerlix. Then placed back in the fiberglass lower leg splint and cover snugly with an Rolando wrap. Regarding the donor site on the thigh, leave the Xeroform in place but leave otherwise open to air so that it will dry out. Nonoperative management for the left fifth metatarsal fracture with nonweightbearing on the left lower extremity. Activity: Strict NWB to the left lower extremity. Keep splint in place acccept for dressing changes. Followup: Follow up with Dr. Valle at [facility] on February 15 or for a wound evaluation. Referrals: Alka Castanon DO [Primary Care Provider] - Dmitri Powell MD [Partnered Physician] - 02/09/17 2:10 pm
[2017-02-07] MEDS: Famotidine 20 MG TABLET PO SCH (22:45)
[2017-02-07] MEDS: traZODone 50 MG TABLET PO SCH (22:46)
[2017-02-08] MEDS: *HR* OxyCODONE/APAP 7.5/325 TABLET PO PRN ×4 (01:04→14:16)
[2017-02-08 01:26] LABS: Basophils % 0.2 %; Eosinophils # 0.3 K/mcL (0.0-0.6); Eosinophils % 2.7 %; Hematocrit 26.2 % (35.3-44.9); Hemoglobin 8.4 g/dL (11.5-15.4); Immature Granulocytes % 1.1 % (0-4); Lymphocytes # 3.1 K/mcL (0.6-4.6); Lymphocytes % 26.2 %; Mean Corpuscular HGB Conc 32.1 g/dL (31.6-35.5); Mean Corpuscular Hemoglobin 29.7 pg (28.0-33.3); Mean Corpuscular Volume 92.6 fL (83.0-100.0); Mean Platelet Volume 9.8 fL (9.4-12.4); Monocytes # 0.8 K/mcL (0.0-1.3); Monocytes % 6.4 %; Neutrophils # 7.5 K/mcL (1.6-8.9); Platelet Count 363 K/mcL (140-400); Red Blood Count 2.83 M/mcL (3.82-4.97); Red Cell Distribution Width 13.6 % (11.5-14.5); Segmented Neutrophils % 63.4 %
[2017-02-08 01:38] LABS: Calcium 8.2 mg/dL (8.6-10.8); Potassium 4.3 mEq/L (3.5-4.5)
[2017-02-08] MEDS: *HR* Heparin 5,000 UNIT/ML VIAL SQ SCH (05:45)
[2017-02-08] MEDS: lamoTRIgine 100 MG TABLET PO SCH (08:21)
[2017-02-08] MEDS: Gabapentin 100 MG CAPSULE PO SCH ×2 (08:21→14:16)
[2017-02-08] MEDS: diazePAM 10 MG TABLET PO SCH (08:22)
[2017-02-08] MEDS: (Norgestimate-Ethinyl Estradiol [Sprintec 28 Day Tabl) PO SCH (08:24)
--- NOTE | 2017-02-08 12:10 | Event Note ---
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 No new recommendations. Will sign-off for now, but please arrange for a nephrology hospital follow up with [facility] in about 3-5 weeks after discharge. Would recommend checking a BMP about 1 week after discharge as well. I see that my colleague Dr. Butler first consulted on her, so I recommend he follow up with her. Please feel free to call or page with any renal questions. Thank you.
--- NOTE | 2017-02-08 13:36 | Internal Med Progress Note ---
Date of Encounter: 02/08/17 Time of Encounter: 13:00 - Assessment and plan (1) Compartment syndrome Current Visit: Yes Status: Acute Assessment and plan: Patient underwent fasciotomy on Had irrigation , skin graft and Wound vac placed on 02/02/17 Wound vac removed on 02/05/17 by Ortho Wound care as per Ortho recommendations PT/OT evaluation elevation of leg Cont Percocet PRN only Qualifiers: Compartment syndrome type: traumatic Encounter type: initial encounter Compartment syndrome location: lower extremity Laterality: left Qualified Code(s): T79.A22A - Traumatic compartment syndrome of left lower extremity, initial encounter (2) Acute kidney injury Current Visit: Yes Status: Acute Assessment and plan: Non oliguric Due to severe Rhabdomyolysis peaked at 3.95.. now started trending down slowly..today @ 2.51 Pt is tolerating PO intake well cont her on maintenance IV fluids monitor renal function Avoid nephrotoxic agents Renally dosed neurontin (3) Hypotension Current Visit: Yes Status: Acute Assessment and plan: Improved..cont on IV fluids Qualifiers: Qualified Code(s): I95.9 - Hypotension, unspecified (4) Closed nondisplaced fracture of fifth left metatarsal bone Current Visit: Yes Status: Acute Assessment and plan: traumatic nonoperative management with non-weight bearing, pain control, PT/OT Qualifiers: Encounter type: initial encounter Qualified Code(s): S92.355A - Nondisplaced fracture of fifth metatarsal bone, left foot, initial encounter for closed fracture (5) Rhabdomyolysis Current Visit: Yes Status: Acute Assessment and plan: Serum CK improving creatinine improving slowly d/c IVF .. waiting on today's labs avoid nephrotoxic agents Monitor intake and output Qualifiers: Rhabdomyolysis type: traumatic Encounter type: initial encounter Qualified Code(s): T79.6XXA - Traumatic ischemia of muscle, initial encounter (6) Polysubstance abuse Current Visit: Yes Status: Chronic Assessment and plan: Urine drug screen positive for Marijuana, BZD, opiates; social media marketing specialist consult for safe discharge counseled to quit drugs.. Recommended to go for rehab (7) Depression Current Visit: Yes Status: Chronic Assessment and plan: continue home med seroquel and buspar Qualifiers: Depression Type: major depressive disorder Major depression recurrence: recurrent Active/Remission status: remission status unspecified Qualified Code(s): F33.9 - Major depressive disorder, recurrent, unspecified (8) DVT prophylaxis Current Visit: Yes Status: Acute Assessment and plan: on SQ Heparin (9) Physical deconditioning Current Visit: Yes Status: Acute Assessment and plan: May need SNF placement SW working on it Medically stable to d/c to SNF..waiting on placement - Subjective Interval history: This is a 35 y/o F with known PMH of poly substance abuse who admitted here Left lower extremity compartment syndrome had fasciotomy done on 01/30/17. She also happened to have worsening SHAKEEL due to severe rhabdomyolysis. Today pt is more alert, awake and O x 3. Denied any CP / SOB. Denied any new complaints - Constitutional Vitals: Temp Pulse Resp BP Pulse Ox 98.2 F 82 16 111/72 97 02/08/17 11:03 02/08/17 11:03 02/08/17 11:03 02/08/17 11:03 02/08/17 11:03 General appearance: Present: A&O X 3, no acute distress, answers questions appropriately - Head Head exam: Present: atraumatic, normal inspection - Respiratory Respiratory exam: Present: CTAB. Absent: accessory muscle use, rales, rhonchi, wheezes - Cardiovascular Cardiovascular exam: Present: RRR, +S1, +S2. Absent: diastolic murmur, gallop, rubs, systolic murmur - GI/Abdominal GI/Abdominal exam: Present: normal bowel sounds, soft. Absent: rebound, rigid, tenderness - Extremities Exam Extremities exam: Present: pedal edema (Left leg), tenderness (Left lower leg). Absent: calf tenderness Additional comments: clean incision with no discharge / drainage noticed over Left leg medial region. Closed with with skin graft noticed on lateral side of left leg.. No signs of infection noticed. - Back Exam Back exam: Absent: CVA tenderness (L), CVA tenderness (R) - Psychiatric Psychiatric exam: Present: depressed Internal Medicine: Result - Labs CBC & Chem 7: 02/08/17 01:15 02/08/17 01:15 Labs: Short CBC 02/08/17 Range/Units 01:15 WBC 11.9 H (4.3-11.1) K/mcL Hgb 8.4 L (11.5-15.4) g/dL Hct 26.2 L (35.3-44.9) % Plt Count 363 (140-400) K/mcL Neutrophils # 7.5 (1.6-8.9) K/mcL BMP 02/08/17 01:15 Sodium 139 Potassium 4.3 Chloride 101 Carbon Dioxide 29 BUN 30 H Creatinine 2.51 H Glucose 95 Calcium 8.2 L - VTE Documentation of Mechanical Device: Intermittent pneumatic compression device Consult Discharge Plan - Plan Additional Instructions: Wound care instructions: Recommend nursing for daily dressing changes of the left lower leg upon discharge Once daily GENTLY take down the lower leg dressing taking care not to shear off the skin graft. Apply a very thin layer of Silvadene topically to the skin graft Recover the skin graft with a large sheet of Adaptic followed by 4 x 4's and ABDs and wrap snugly with Kerlix. Then placed back in the fiberglass lower leg splint and cover snugly with an Rolando wrap. Regarding the donor site on the thigh, leave the Xeroform in place but leave otherwise open to air so that it will dry out. Nonoperative management for the left fifth metatarsal fracture with nonweightbearing on the left lower extremity. Activity: Strict NWB to the left lower extremity. Keep splint in place acccept for dressing changes. Followup: Follow up with Dr. Valle at [facility] on February 15 or for a wound evaluation. Referrals: Alka Castanon DO [Primary Care Provider] - Dmitri Powell MD [Partnered Physician] - 02/09/17 2:10 pm
[2017-02-08 15:17] VITALS: BP 115/75
--- NOTE | 2017-02-08 17:00 | Discharge Summary ---
Date of Encounter: 02/08/17 Time of Encounter: 16:55 - Discharge Diagnosis (1) Compartment syndrome Priority: Primary Status: Acute Qualifiers: Compartment syndrome type: traumatic Encounter type: initial encounter Compartment syndrome location: lower extremity Laterality: left Qualified Code(s): T79.A22A - Traumatic compartment syndrome of left lower extremity, initial encounter (2) Acute kidney injury Priority: Primary Status: Acute (3) Hypotension Priority: Secondary Status: Resolved Qualifiers: Qualified Code(s): I95.9 - Hypotension, unspecified (4) Closed nondisplaced fracture of fifth left metatarsal bone Priority: Primary Status: Acute Qualifiers: Encounter type: initial encounter Qualified Code(s): S92.355A - Nondisplaced fracture of fifth metatarsal bone, left foot, initial encounter for closed fracture (5) Rhabdomyolysis Priority: Primary Status: Acute Qualifiers: Rhabdomyolysis type: traumatic Encounter type: initial encounter Qualified Code(s): T79.6XXA - Traumatic ischemia of muscle, initial encounter (6) Polysubstance abuse Priority: Secondary Status: Chronic (7) Depression Priority: Secondary Status: Chronic Qualifiers: Depression Type: major depressive disorder Major depression recurrence: recurrent Active/Remission status: remission status unspecified Qualified Code(s): F33.9 - Major depressive disorder, recurrent, unspecified (8) DVT prophylaxis Priority: Secondary Status: Acute (9) Physical deconditioning Priority: Secondary Status: Acute - Discharge Medications Prescriptions: Oxycodone HCl/Acetaminophen [Percocet 5-325 mg Tablet] 1 each PO Q6HR PRN #20 tablet PRN Reason: Pain diazePAM [Valium] 10 mg PO BID #20 tablet Home Medications: Gabapentin [Neurontin] 400 mg PO TID 12/02/15 [History] Lipase/Protease/Amylase [Ursula Dr 24,000 Units Capsule] 2 cap PO TIDWM 12/02/15 [History] Norgestimate-Ethinyl Estradiol [Sprintec 28 Day Tablet] 1 tab PO DAILY 12/02/15 [History] SUMAtriptan Succinate [Imitrex] 100 mg PO DAILY PRN MDD 200 mg 12/02/15 [History ] Tizanidine HCl [Zanaflex] 4 mg PO Q8H PRN 12/02/15 [History] Ranitidine HCl [Heartburn Relief] 150 mg PO HS 11/06/16 [History] Buspirone HCl [Buspar] 30 mg PO TID #90 11/13/16 [Rx] Trazodone HCl 300 mg PO HS #60 11/13/16 [Rx] Dicyclomine [Bentyl] 10 mg PO QID PRN #20 capsule 12/13/16 [Rx] Ondansetron ODT [Zofran ODT] 4 mg SL Q6HR PRN #15 tab.rapdis 12/13/16 [Rx] Amitriptyline [Elavil] 25 mg PO QAM 01/06/17 [History] Lipase/Protease/Amylase [Cred[address]ia Dr 24,000 Units Capsule] 1 each PO QPM 01/06/17 [ History] Omeprazole [PriLOSEC] 40 mg PO DAILY 01/06/17 [History] Duloxetine HCl [Cymbalta] 60 mg PO BID #60 capsule.dr 01/09/17 [Rx] Promethazine [Phenergan] 25 mg PO Q6HR PRN #20 tablet 01/09/17 [Rx] Quetiapine Fumarate [Seroquel] 100 mg PO 0900,1300,1700 #90 tab 01/09/17 [Rx] Quetiapine Fumarate [Seroquel] 200 mg PO HS #30 tablet 01/09/17 [Rx] lamoTRIgine [Lamictal] 200 mg PO BID #60 tablet 01/09/17 [Rx] Oxycodone HCl/Acetaminophen [Percocet 5-325 mg Tablet] 1 each PO Q6HR PRN #20 tablet 02/08/17 [Rx] diazePAM [Valium] 10 mg PO BID #20 tablet 02/08/17 [Rx] Allergies/Adverse Reactions: 3 Allergy/AdvReac Type Severity Reaction Status Date / Time metoclopramide [From Reglan] Allergy Seizure Verified 09/17/16 00:35 prochlorperazine Allergy Difficulty Verified 09/17/16 00:35 [From Compazine] Breathing haloperidol AdvReac See Verified 09/17/16 00:35 Comments Date of admission: 01/28/17 11:00 Primary care physician: Alka Castanon DO Consults: 01/28/17 16:54 Consult to Physical Therapy [CONS] Routine Comment: Evaluate, develop and implement POC Reason for Consult: no weight bearing to left leg OT [Consult to Occupational Therapy] [CONS] Routine Comment: Evaluate, develop and implement POC Reason for Consult: no weight bearing to left leg 01/29/17 13:50 Consult to Nephrology [CONS] Routine Consulting Provider: Kidney Rosa Maria/JAMIE/MEET/KITTY Reason for Consult: SHAKEEL, rhabdomyolysis Call Completed: Yes 01/29/17 16:49 Consult to Invasive Line Access Team [CONS] Routine Reason for Consult: limited access Line Type: EPIV - Patient Status Disposition: Transfer SNF Condition: Good Overall status at discharge: patient is back to baseline - Discharge Instructions Follow Up With: Alka Castanon DO [Primary Care Provider] - Dmitri Powell MD [Partnered Physician] - 02/09/17 2:10 pm Ralph Butler MD [Partnered Physician] - Forms: ED Satisfaction Letter Additional Instructions: Need to f/u with Ortho as scheduled Need to f/u with Nephro Dr. Butler in one week need to go for BMP in one week Need to f/u with PCP in one week Wound care instructions: Recommend nursing for daily dressing changes of the left lower leg upon discharge Once daily GENTLY take down the lower leg dressing taking care not to shear off the skin graft. Apply a very thin layer of Silvadene topically to the skin graft Recover the skin graft with a large sheet of Adaptic followed by 4 x 4's and ABDs and wrap snugly with Kerlix. Then placed back in the fiberglass lower leg splint and cover snugly with an Rolando wrap. Regarding the donor site on the thigh, leave the Xeroform in place but leave otherwise open to air so that it will dry out. Nonoperative management for the left fifth metatarsal fracture with nonweightbearing on the left lower extremity. Activity: Strict NWB to the left lower extremity. Keep splint in place acccept for dressing changes. Followup: Follow up with Dr. Valle at [facility] on February 15 or for a wound evaluation. - Diet and Activity Activity: as per physical therapy Diet: advance to your usual diet Hospital course: Ms. Calle is a 36 year old female who was brought by EMS for evaluation of left lower extremity pain. She reported sudden onset left lower leg pain which she describes as severe, located in the left kan, sharp, worse with bearing weight and progressive over the last day and a half. She had difficulty ambulating due to pain and suffered multiple falls over the last day because of unsteadiness. She denies any trauma prior to symptom onset. Pt was admitted in the hospital with severe rhabdomyolysis and SHAKEEL, as well noticed to have severe Left lower leg compartment syndrome. Pt was started on aggressive IV hydration and NaHCo3 gtt. Her Cr peaked at 3.95, then started trendoing down slowly to 2.51 today. Regarding her compartment syndrome she was evaluated by Ortho who did fasciotomy on and had irrigation , skin graft and Wound vac placed on 02/02/17. Her wound vac removed on 02/05/17 by Ortho. Regarding her closed non displaced fracture of 5th left metatarsal bone, ortho recommend conservative non operative management with non weight bearing and pain control. Pt was evaluated by PT / OT who recommend SNF placement for short term PT / OT. So will d/c her to ECF today in stable condition. - Time Spent with Patient Total time spent providing and/or coordinating discharge services: Greater than 30 minutes (spend 35 minutes due to her complex medical problem) - Constitutional Vitals: Temp Pulse Resp BP Pulse Ox 97.5 F L 103 18 115/75 94 02/08/17 15:15 02/08/17 15:15 02/08/17 15:15 02/08/17 15:15 02/08/17 15:15 General appearance: Present: A&O X 3, no acute distress, answers questions appropriately - Head Head exam: Present: atraumatic, normal inspection - Respiratory Respiratory exam: Present: CTAB. Absent: accessory muscle use, rales, rhonchi, wheezes - Cardiovascular Cardiovascular exam: Present: RRR, +S1, +S2. Absent: diastolic murmur, gallop, rubs, systolic murmur - Extremities Exam Extremities exam: Present: pedal edema (Left). Absent: calf tenderness Additional comments: clean incision with no discharge / drainage noticed over Left leg medial region. Closed with with skin graft noticed on lateral side of left leg.. No signs of infection noticed. - VTE Documentation of Mechanical Device: Intermittent pneumatic compression device
--- NOTE | 2017-02-08 17:05 | Physician Discharge Referral ---
ExtendedCare Referral Info Transfer To: ECF Provider in Charge after Transfer: PCP Institutional Level of Care: Skilled - Diagnosis (1) Compartment syndrome Status: Acute (2) Acute kidney injury Status: Acute (3) Hypotension Status: Resolved (4) Closed nondisplaced fracture of fifth left metatarsal bone Status: Acute (5) Rhabdomyolysis Status: Acute (6) Polysubstance abuse Status: Chronic (7) Depression Status: Chronic (8) DVT prophylaxis Status: Acute (9) Physical deconditioning Status: Acute - Transfer Medications Prescriptions: Oxycodone HCl/Acetaminophen [Percocet 5-325 mg Tablet] 1 each PO Q6HR PRN #20 tablet PRN Reason: Pain diazePAM [Valium] 10 mg PO BID #20 tablet Home Medications: Gabapentin [Neurontin] 400 mg PO TID 12/02/15 [History] Lipase/Protease/Amylase [Ursula Miller 24,000 Units Capsule] 2 cap PO TIDWM 12/02/15 [History] Norgestimate-Ethinyl Estradiol [Sprintec 28 Day Tablet] 1 tab PO DAILY 12/02/15 [History] SUMAtriptan Succinate [Imitrex] 100 mg PO DAILY PRN MDD 200 mg 12/02/15 [History ] Tizanidine HCl [Zanaflex] 4 mg PO Q8H PRN 12/02/15 [History] Ranitidine HCl [Heartburn Relief] 150 mg PO HS 11/06/16 [History] Buspirone HCl [Buspar] 30 mg PO TID #90 11/13/16 [Rx] Trazodone HCl 300 mg PO HS #60 11/13/16 [Rx] Dicyclomine [Bentyl] 10 mg PO QID PRN #20 capsule 12/13/16 [Rx] Ondansetron ODT [Zofran ODT] 4 mg SL Q6HR PRN #15 tab.rapdis 12/13/16 [Rx] Amitriptyline [Elavil] 25 mg PO QAM 01/06/17 [History] Lipase/Protease/Amylase [Ursula Miller 24,000 Units Capsule] 1 each PO QPM 01/06/17 [ History] Omeprazole [PriLOSEC] 40 mg PO DAILY 01/06/17 [History] Duloxetine HCl [Cymbalta] 60 mg PO BID #60 capsule. 01/09/17 [Rx] Promethazine [Phenergan] 25 mg PO Q6HR PRN #20 tablet 01/09/17 [Rx] Quetiapine Fumarate [Seroquel] 100 mg PO 0900,1300,1700 #90 tab 01/09/17 [Rx] Quetiapine Fumarate [Seroquel] 200 mg PO HS #30 tablet 01/09/17 [Rx] lamoTRIgine [Lamictal] 200 mg PO BID #60 tablet 01/09/17 [Rx] Oxycodone HCl/Acetaminophen [Percocet 5-325 mg Tablet] 1 each PO Q6HR PRN #20 tablet 02/08/17 [Rx] diazePAM [Valium] 10 mg PO BID #20 tablet 02/08/17 [Rx] Allergies/Adverse Reactions: 3 Allergy/AdvReac Type Severity Reaction Status Date / Time metoclopramide [From Reglan] Allergy Seizure Verified 09/17/16 00:35 prochlorperazine Allergy Difficulty Verified 09/17/16 00:35 [From Compazine] Breathing haloperidol AdvReac See Verified 09/17/16 00:35 Comments - Respiratory Orders Smoking Cessation: Smoking cessation has been advised. For more information, call the [place] Tobacco Quit Line at 8-012-MLQU-NOW. CERTIFICATION: I certify that the transfer of the above named patient to an Extended Care Facility is necessary for the continuing treatment of the diagnosis listed. The above information is true and accurate reflection of patient's current condition. Confidential - Redisclosure prohibited without a patient's written consent.
== END 2017-02-08 17:43 | DRG 904 ==
LOC: 3NENU 02:16 → EMEROO 02:16 → 3NENU 07:36 → SUATTDRO 11:00 → 3NENU 02-07 22:09
PROVIDERS: ADMIT Internal Medicine; ATTEND Family Medicine
PROC: ORTFASC (2017-01-28 17:30)